=== PATIENT | male | born 1950 | race Caucasian/White ===

== ENCOUNTER 2025-01-28 08:07 | Inpatient (IN) ==
[2025-01-28 09:22] LABS: Hematocrit (blood only) 40.3 % (42.0-52.0); Hemoglobin 13.9 g/dl (14.0-18.0); Mean Corpuscular Hemoglobin 32.3 pg (25.0-34.0); Mean Corpuscular Volume 93.7 fL (80.0-100.0); Platelet Count 152 K/uL (130-400); RDW Standard Deviation 45.3 fL (36.4-46.3); Red Blood Count 4.30 M/uL (4.70-6.10); White Blood Count 10.59 K/ul (4.8-10.8)
--- NOTE | 2025-01-28 09:24 | Emergency Department Note ---
Impression & Plan Sepsis, Complicated urinary tract infection, Ureterolithiasis, Hydronephrosis ED Provider Note NAME: CARLITOS LOCKHART AGE: 74 SEX: M : 1950 ARRIVES VIA: Walk-In INFORMANT: Patient, ED PROVIDER(S): Bart Reid DO CHIEF COMPLAINT: generalized weakness HPI: This is a 74-year-old male with the PMHx of BPH, osteoarthritis, nephrolithiasis, and prior hip replacement with ongoing left hip pain presenting to [facility] for further evaluation of generalized weakness. the patient and his provide history at the bedside. He reports that he has become acutely ill over the last 24 hours. They report that he has been weak all of a sudden. They do note some congestion. He has had a mild intermittent cough. They note that he has been shaking. They noted Tmax at home of 102 F. He notes that he has had difficulty of urination and some dysuria. Patient had a Hopper catheter previously that was removed. Patient states he is still able to void but unsure if he is completely emptying his bladder. Patient does report some left-sided hip pain but otherwise no complaints. He states that this has been an ongoing issue and is no worse than usual. Denies chest pain or palpitations. No shortness of breath. They deny abdominal pain, nausea and vomiting. No recent changes in bowel movements. Patient denies recent changes in medications or OTC supplements. Patient offers no other complaints, today. ADDITIONAL HISTORY OBTAINED: Per HPI Chronic Medical/Social Conditions Affecting Care: Per HPI PAST MEDICAL HISTORY: See Below PAST SURGICAL HISTORY: See Below FAMILY HISTORY: See Below SOCIAL HISTORY: See Below HOME MEDICATIONS: See Below ALLERGIES: See Below VITALS: See Below PHYSICAL EXAMINATION: GENERAL: Sitting up in bed, alert, well appearing, well nourished, no distress, he does appear generally ill EYE EXAM: normal conjunctiva. PERRL and EOM's grossly intact. OROPHARYNX: no exudate, no erythema, lips, buccal mucosa, and tongue normal and mucous membranes are dry NECK: supple, no nuchal rigidity, no adenopathy, non-tender LUNGS: Clear to auscultation. Normal chest wall mechanics HEART: no murmurs, Tachycardic rate, regular rhythm ABDOMEN: abdomen soft, he does have some tenderness in the right upper quadrant as well as flank tenderness/CVA tenderness, normo-active bowel sounds, no masses, no rebound or guarding. BACK: Back is symmetrical on inspection and there is no deformity, no midline tenderness. SKIN: no rashes and no bruising UPPER EXTREMITIES: upper extremities are grossly normal. LOWER EXTREMITIES: No pitting edema. NEURO EXAM: Normal sensorium, cranial nerves II-XII grossly intact, normal speech, no gross weakness of arms, no gross weakness of legs. MEDICAL DECISION MAKING: Differential diagnosis includes but not limited to complicated UTI, bacteremia, sepsis, viral URI, pneumonia, dehydration, electrolyte derangements In summary, this is a 74-year-old presenting for fevers and generalized weakness. Triage and nursing notes reviewed. Patient is tachycardic but otherwise afebrile and hemodynamically stable. Diagnostics interpreted by me include EKG and cardiac monitoring as listed below: -Cardiac Monitoring: An order was placed for continuous cardiac monitoring. The monitor shows a rate of 110-120s with regular rhythm. -ECG: EKG independently interpreted by me reveals sinus tachycardia at a rate of [address] segment change to STEMI. Intervals otherwise within normal limits. History provided by the patient includes fevers at home as well as weakness that has progressed over the last 24 hours. Patient does describe rigors. Physical examination reveals that he is generally ill, tachycardic and some RUQ abdominal and CVA TTP. Given history and presentation, I suspect his source of symptoms are likely related to urinary source but given rigors, he could have GNB bacteremia. Will proceed with infectious workup and IVFR. Plan to start empiric antibiotics with IV Cefepime. Labs and imaging reviewed. Pertinent findings include elevated lactate. IV fluid resuscitation ongoing. CBC showed no leukocytosis. Does have chronic anemia. CRP is 12. Procalcitonin is 22. I am again concerned for a urinary source of infection. He will provide a urine sample. Also concern for possible gram-negative bacteremia. On reexamination, the patient has active rigors. He is now borderline febrile. Will give a dose of Toradol as well as further IV fluid resuscitation as he is still tachycardic. No history of heart failure. Patient having some right upper quadrant abdominal tenderness and possible loose CVA tenderness on the right. Will obtain CT abdomen/pelvis with IV contrast for further evaluation of intra-abdominal pathology and source of inflammation / infection. CT abdomen/pelvis independently interpreted by me reveals bilateral ureterolithiasis and left-sided hydronephrosis. There is a very distal approximately 5 mm stone. Ureter appears infected. Evidence of cystitis with bladder thickening. There is a proximal stone on the right but do not believe this is the source. Plan to discuss with urology. I discussed with the urologist on-call. Patient will likely need operative intervention. They will take to patient to the OR this afternoon. Patient will be admitted to the medicine team. Patient was discussed by telephone with [facility] hospitalist team and admitted. Patient will need to have IV antibiotics and continued IV fluid resuscitation as he remains tachycardic. Patient likely has sepsis secondary to complicated UTI which is further complicated by bilateral utero lithiasis. Consults/Care Managements Discussions: Per MDM ER treatment provided: See above Procedures:none Critical Care: None Past Med/Surg History Problem List (Updated 01/28/25 @ 17:25 by aBrt Reid DO) Hydronephrosis (Acute) Ureterolithiasis (Acute) Complicated urinary tract infection (Acute) Sepsis (Acute) Complicated UTI (urinary tract infection) Type 2 diabetes mellitus Hydroureteronephrosis Bilateral ureteral calculi Sepsis Encounter for pre-operative examination Complication, blocked Hopper catheter (Acute) Tinnitus of right ear Erectile dysfunction BPH (benign prostatic hyperplasia) Arthritis Kidney stones Epididymal cyst Medical History Hydrocele Glaucoma Sensorineural hearing loss (SNHL) of both ears Imbalance Ureteral calculi Hydronephrosis Closed hip fracture Diabetes mellitus Hx of bronchitis Surgical History History of right hip replacement History of back surgery Hx of appendectomy Family History Brother Prostate cancer both brothers Diabetes Heart disease Kidney stones Mother Breast cancer Family history of cervical cancer Father Diabetes Social History Smoking Status: Former smoker Tobacco Type: Cigars Hx Alcohol Use: Yes Alcohol type: beer Hx Substance Use: No Preferred Language: Guyanese Communication Ability: Effective 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 sulfamethoxazole Allergy Unknown PER PT Verified 01/13/25 00:20 [From Bactrim] "QUIT WORKING FOR UTI'S". trimethoprim [From Bactrim] Allergy Unknown PER PT Verified 01/13/25 00:20 "QUIT WORKING FOR UTI'S". Home Meds Home Medications Medication Instructions Recorded Confirmed blood sugar diagnostic 08/23/21 11/07/24 lancets 08/23/21 11/07/24 lisinopril 2.5 mg tablet 2.5 mg PO QPM 08/23/21 01/13/25 mecobalamin (vitamin B12) 1,000 1,000 mcg PO DAILY 08/23/21 01/13/25 mcg chewable tablet pravastatin 20 mg tablet 20 mg PO HS 08/23/21 01/13/25 vitamin E (dl, acetate) 450 mg 450 mg PO DAILY 11/08/23 01/13/25 (1,000 unit) capsule aspirin 81 mg chewable tablet 81 mg PO Q OTHER DAY 11/07/24 01/13/25 (Aspirin Childrens) calcium 500 mg (as 1 tab PO DAILY 11/07/24 01/13/25 carbonate)-vitamin D3 10 mcg (400 unit) tablet (Calcium 500 + D) diphenhydramine 25 2 tab PO HS 11/07/24 01/13/25 mg-acetaminophen 500 mg tablet (Tylenol PM Extra Strength) finasteride 5 mg tablet 5 mg PO QPM 11/07/24 01/13/25 mesalamine 1.2 gram tablet,delayed 2.4 g PO BID 11/07/24 01/13/25 release metformin 500 mg tablet,extended 1,000 mg PO BID 11/07/24 01/13/25 release 24 hr semaglutide 0.25 mg or 0.5 mg (2 0.5 mg subcut WK 11/07/24 01/13/25 mg/3 mL) subcutaneous pen injector (Ozempic) ibuprofen 200 mg tablet 200 mg PO .Q4-6H PRN Pain 01/13/25 01/13/25 inulin 2 gram chewable tablet 4 g PO QAM 01/13/25 01/13/25 Previous Rx's Medication Instructions Recorded oxycodone 5 mg tablet 5 - 10 mg (1 - 2 x 5 mg) PO Q4H 11/14/24 PRN pain #14 tabs sildenafil 100 mg tablet 100 mg PO DAILY PRN sexual 11/14/24 activity #30 tabs Results & Data (ED) Vital Signs Vital Signs - 24 hr 01/28/25 08:17 01/28/25 08:47 01/28/25 09:16 Temperature 37.7 C H Temperature Source Oral Pulse Rate 120 H 113 H Pulse Rate [Apical] Pulse Rate from SpO2 Sensor Respiratory Rate 18 Respiratory Effort / Characteristics Non-Labored Spontaneous Respiratory Depth Normal Blood Pressure 127/76 Blood Pressure [Left Arm] Blood Pressure Mean 93 Blood Pressure Mean [Left Arm] Blood Pressure Position Sitting Blood Pressure Position [Left Arm] Pulse Oximetry 94 95 Oxygen Delivery Method Room Air Room Air Sepsis Recent Fever Within 48 Hours Yes Sepsis New/Unexplained Change in Mental Status No Sepsis Action Taken by Nursing No Action Required 01/28/25 09:16 01/28/25 09:40 01/28/25 11:00 Temperature 37.9 C H Temperature Source Oral Pulse Rate Pulse Rate [Apical] 108 H 110 H 115 H Pulse Rate from SpO2 Sensor Respiratory Rate 17 19 19 Respiratory Effort / Characteristics Non-Labored Spontaneous Non-Labored Spontaneous Non-Labored Spontaneous Respiratory Depth Normal Normal Normal Blood Pressure Blood Pressure [Left Arm] 118/86 134/81 148/88 H Blood Pressure Mean Blood Pressure Mean [Left Arm] 96 98 108 Blood Pressure Position Blood Pressure Position [Left Arm] Semi-fowlers Semi-fowlers Semi-fowlers Pulse Oximetry 95 95 95 Oxygen Delivery Method Room Air Room Air Room Air Sepsis Recent Fever Within 48 Hours Sepsis New/Unexplained Change in Mental Status Sepsis Action Taken by Nursing 01/28/25 12:00 01/28/25 12:03 01/28/25 12:27 Temperature Temperature Source Pulse Rate 122 H 123 H Pulse Rate [Apical] Pulse Rate from SpO2 Sensor 123 H Respiratory Rate 19 23 Respiratory Effort / Characteristics Respiratory Depth Blood Pressure 132/76 Blood Pressure [Left Arm] Blood Pressure Mean 92 Blood Pressure Mean [Left Arm] Blood Pressure Position Blood Pressure Position [Left Arm] Pulse Oximetry 95 Oxygen Delivery Method Sepsis Recent Fever Within 48 Hours Sepsis New/Unexplained Change in Mental Status Sepsis Action Taken by Nursing 01/28/25 12:30 Temperature Temperature Source Pulse Rate Pulse Rate [Apical] Pulse Rate from SpO2 Sensor Respiratory Rate Respiratory Effort / Characteristics Respiratory Depth Blood Pressure 145/83 H Blood Pressure [Left Arm] Blood Pressure Mean 94 Blood Pressure Mean [Left Arm] Blood Pressure Position Blood Pressure Position [Left Arm] Pulse Oximetry Oxygen Delivery Method Sepsis Recent Fever Within 48 Hours Sepsis New/Unexplained Change in Mental Status Sepsis Action Taken by Nursing Laboratory Data 01/28/25 09:05 01/28/25 09:05 Lab Results 01/28/25 01/28/25 01/28/25 Range/Units 09:05 09:28 12:04 WBC 10.59 (4.8-10.8) K/ul RBC 4.30 L (4.70-6.10) M/uL Hgb 13.9 L (14.0-18.0) g/dl Hct 40.3 L (42.0-52.0) % MCV 93.7 (80.0-100.0) fL MCH 32.3 (25.0-34.0) pg MCHC 34.5 (32.0-36.0) g/dL RDW Std Deviation 45.3 (36.4-46.3) fL RDW Coeff of Jyoit 13.3 (11.5-14.5) % Plt Count 152 (130-400) K/uL MPV 10.1 (9.4-12.4) fL Immature Gran % (Auto) 0.6 % Neut % (Auto) 90.2 % Lymph % (Auto) 2.9 % [place] % (Auto) 5.9 % Eos % (Auto) 0.0 % Baso % (Auto) 0.4 % Neut # (Auto) 9.56 H (1.40-6.50) K/uL Lymph # (Auto) 0.31 L (1.20-3.40) K/uL [place] # (Auto) 0.62 H (0.11-0.59) K/uL Eos # (Auto) 0.00 (0.00-0.50) K/uL Baso # (Auto) 0.04 (0.00-0.20) K/uL Immature Gran # (Auto) 0.06 (0.01-0.20) K/uL Polychromasia 1+ Sodium 136 (136-145) mmol/L Potassium 4.1 (3.5-5.1) mmol/L Chloride 104 (98-107) mmol/L Carbon Dioxide 22 (21-32) mmol/L Anion Gap 10 (3-11) BUN 20 (6-23) mg/dl Creatinine 0.95 (0.6-1.4) mg/dl Est Cr Clr Drug Dosing 85.9 ml/min eGFR 83.47 BUN/Creatinine Ratio 21.1 H (10-20) Glucose 161 H (70-99(Fasting)) mg/dl Lactate 2.7 H* 1.9 (0.4-2.0) mmol/L Calcium 9.1 (8.6-10.3) mg/dl Total Bilirubin 0.7 (0.2-1.0) mg/dl AST 15 (13-39) U/L ALT 16 (7-52) U/L Alkaline Phosphatase 87 (34-104) U/L Troponin I High Sens 6.3 (0-20) pg/ml C-Reactive Protein 12.48 H (0-0.5) mg/dl Total Protein 7.0 (6.0-8.3) gm/dl Albumin 4.1 (3.4-5.0) gm/dl Globulin 2.9 (2.5-4.0) gm/dl Albumin/Globulin Ratio 1.4 (0.9-2) Procalcitonin 22.40 H (0-0.5) ng/ml Adenovirus (PCR) Not Detected (NotDetected) B. pertussis DNA (PCR) Not Detected (NotDetected) B.parapertussis DNA PCR Not Detected (NotDetected) C. pneumoniae DNA (PCR) Not Detected (NotDetected) Coronavirus OC43 (PCR) Not Detected (NotDetected) Coronavirus HKU1 (PCR) Not Detected (NotDetected) Coronavirus 229E (PCR) Not Detected (NotDetected) SARS-CoV-2 (PCR) Not Detected (NotDetected) Coronavirus NL63 (PCR) Not Detected (NotDetected) Human Metapneumovir PCR Not Detected (NotDetected) Influenza Type A (PCR) Not Detected (NotDetected) Influenza Type B (PCR) Not Detected (NotDetected) M. pneumoniae (PCR) Not Detected (NotDetected) Parainfluenza 1 (PCR) Not Detected (NotDetected) Parainfluenza 2 (PCR) Not Detected (NotDetected) Parainfluenza 3 (PCR) Not Detected (NotDetected) Parainfluenza 4 (PCR) Not Detected (NotDetected) RSV (PCR) Not Detected (NotDetected) Entero/Rhino (PCR) Not Detected (NotDetected) Administered Medications Lactated Ringer's (Lr) 1,000 mls @ 15 mls/hr IV .Q24H NELIDA Stop: 01/31/25 13:44 Last Admin: 01/28/25 13:40 Dose: 15 mls/hr Documented By: DONAVON Discontinued Medications Cefepime HCl (Maxipime 2000mg) 2,000 mg in 20 mls @ 5 mls/min IV NOW STA; Protocol Stop: 01/28/25 08:35 Last Admin: 01/28/25 09:26 Dose: 5 mls/min Documented By: STAN Parenteral Electrolytes (Plasma-Lyte A Ph 7.4) 1,000 mls @ 999 mls/hr IV .Q1H1M ONE Stop: 01/28/25 09:48 Last Infusion: 01/28/25 10:42 Dose: Infused Documented By: Admin: 01/28/25 09:26 Dose: 999 mls/hr Documented By: STAN Parenteral Electrolytes (Plasma-Lyte A Ph 7.4) 1,000 mls @ 999 mls/hr IV .Q1H1M ONE Stop: 01/28/25 11:42 Last Infusion: 01/28/25 12:33 Dose: Infused Documented By: Admin: 01/28/25 10:51 Dose: 999 mls/hr Documented By: STAN Ioversol (Optiray 320 100ml) 88 ml IV ONCE ONE Stop: 01/28/25 11:21 Last Admin: 01/28/25 11:20 Dose: 88 ml Documented By: JAYSON Ketorolac Tromethamine (Ketorolac Tromethamine 15 Mg/Ml Vial) 15 mg IV NOW STA Stop: 01/28/25 10:43 Last Admin: 01/28/25 10:50 Dose: 15 mg Documented By: STAN Imaging Data Radiologist's Impression: Chest X-Ray 01/28/25 08:32 XR chest 1V portable CLINICAL HISTORY: Fever. COMPARISON STUDY: No previous studies for comparison. FINDINGS: Lung volumes are normal. There is no pneumothorax or pleural effusion. The heart is mildly enlarged. There is subtle interstitial prominence. No consolidation is identified. IMPRESSION: 1. Mild cardiomegaly. Subtle interstitial thickening. This may represent pulmonary vascular congestion. Although less likely, an infectious process could appear similar. 2. No consolidation identified. ACT 112: Negative or not required by law. Electronically signed by: Minor Whitmore M.D. 01/28/2025 9:50 AM Abdomen/Pelvis CT 01/28/25 10:42 CT SCAN OF THE ABDOMEN AND PELVIS WITH IV CONTRAST CLINICAL HISTORY: Right flank pain. COMPARISON STUDY: Right upper quadrant ultrasound October 02, 2024. TECHNIQUE: Following the IV administration of 88 cc of Optiray 320, CT scan of the abdomen and pelvis is performed from the lung bases to the proximal femora. Images are reviewed in the axial, sagittal, and coronal planes. IV contrast was administered without complication. A dose lowering technique was utilized adhering to the principles of ALARA. CT DOSE: 1654.44 mGy.cm FINDINGS: Visualized lung bases are unremarkable. No pneumatosis, free air or portal venous gas is present. There is hepatic steatosis. There are several gallstones within the gallbladder. There is no convincing CT evidence for acute cholecystitis. Spleen, adrenal glands and pancreas are unremarkable. Two distal left ureteral calculi measure up to 5 mm. There is a 3 mm lower pole renal calculus. The left nephrogram is delayed with mild left perinephric stranding. Multiple radiodensities within the right collecting system are present. There is also elongated radiodensity within the right ureteropelvic junction without hydronephrosis. There is no evidence for a bowel obstruction. There is colonic diverticulosis. There is subtle stranding adjacent to a sigmoid colon diverticulum. No free air or abscess is present. Bladder wall thickening with adjacent stranding is present. IMPRESSION: 1. Two distal left ureteral calculi which result in mild left hydroureteronephrosis with delayed nephrogram. 2. Right pelvicalyceal radiodensities which likely represent excreted contrast. 3. Bladder wall thickening with adjacent stranding which could be correlated with urinalysis. 4. Mild acute sigmoid diverticulitis. No free air or abscess. 5. Cholelithiasis. ACT 112: Negative or not required by law. Electronically signed by: Minor Whitmore M.D. 01/28/2025 11:56 AM Discharge Plan Visit Data Chief Complaint: Weakness Stated Complaint: WEAK,FEVER,RECOVERING FROM FEMUR FRACTURE ED Provider: Bart Reid Discharge Problem: Sepsis, Complicated urinary tract infection, Ureterolithiasis, Hydronephrosis Patient Disposition: Admitted As Inpatient Condition: Serious Discharge Instructions Interventions: ED Discharge Assessment Last Done: 01/28/25 13:12 Discharge Problem: Sepsis Qualifiers: Sepsis type: sepsis due to unspecified organism Sepsis acute organ dysfunction status: without acute organ dysfunction Qualified Code(s): A41.9 - Sepsis, unspecified organism Hydronephrosis Qualifiers: Hydronephrosis type: with ureteropelvic junction obstruction Qualified Code(s): Q62.11 - Congenital occlusion of ureteropelvic junction
[2025-01-28] MEDS: PLASMA-LYTE A 1,000 ML IV ONE ×2 (09:26→10:51)
[2025-01-28] MEDS: CEFEPIME 2000MG 2,000 MG/20 ML SYR IV STA (09:26)
--- NOTE | 2025-01-28 09:51 | XRay Report ---
XR chest 1V portable CLINICAL HISTORY: Fever. COMPARISON STUDY: No previous studies for comparison. FINDINGS: Lung volumes are normal. There is no pneumothorax or pleural effusion. The heart is mildly enlarged. There is subtle interstitial prominence. No consolidation is identified. IMPRESSION: 1. Mild cardiomegaly. Subtle interstitial thickening. This may represent pulmonary vascular congestio n. Although less likely, an infectious process could appear similar. 2. No consolidation identified. ACT 112: Negative or not required by law. Electronically signed by: Minor Whitmore M.D. 01/28/2025 9:50 AM
[2025-01-28 09:53] LABS: Anion Gap 10.0 (3-11); Bilirubin,Total 0.7 mg/dl (0.2-1.0); Calcium 9.1 mg/dl (8.6-10.3); Carbon Dioxide 22.0 mmol/L (21-32); Chloride 104.0 mmol/L (98-107); Potassium 4.1 mmol/L (3.5-5.1); Sodium 136.0 mmol/L (136-145)
[2025-01-28 09:59] LABS: Alanine Aminotransferase 16.0 U/L (7-52); Albumin Globulin Ratio 1.4 (0.9-2); Alkaline Phosphatase 87.0 U/L (34-104); Blood Urea Nitrogen 20.0 mg/dl (6-23); Creatinine Clr Calc Pharmacy 85.9 ml/min; Globulin 2.9 gm/dl (2.5-4.0); Glucose 161.0 mg/dl (70-99(Fasting)); Total Protein 7.0 gm/dl (6.0-8.3)
[2025-01-28 10:07] LABS: Immature Granulocytes # (auto) 0.06 K/uL (0.01-0.20); Immature Granulocytes % (auto) 0.6 %; Polychromasia 1+
[2025-01-28 10:34] LABS: Chlamydia pneumoniae PCR Not Detected (NotDetected); Coronavirus 229E PCR Not Detected (NotDetected); Coronavirus CoV-2 (COVID19)PCR Not Detected (NotDetected); Coronavirus HKU1 PCR Not Detected (NotDetected); Coronavirus NL63 PCR Not Detected (NotDetected); Coronavirus OC43PCR Not Detected (NotDetected); Human Metapneumovirus PCR Not Detected (NotDetected); Parainfluenza Virus 1 PCR Not Detected (NotDetected); Parainfluenza Virus 2 PCR Not Detected (NotDetected); Parainfluenza Virus 3 PCR Not Detected (NotDetected); Parainfluenza Virus 4 PCR Not Detected (NotDetected); Respiratory Syncytial VirusPCR Not Detected (NotDetected); Rhinovirus/Enterovirus PCR Not Detected (NotDetected)
[2025-01-28] MEDS: KETOROLAC TROMETHAMINE 15 MG/ML VIAL IV STA (10:50)
[2025-01-28] MEDS: OPTIRAY 320 100ml IV ONE (11:20)
--- NOTE | 2025-01-28 11:59 | CT Scan Report ---
CT SCAN OF THE ABDOMEN AND PELVIS WITH IV CONTRAST CLINICAL HISTORY: Right flank pain. COMPARISON STUDY: Right upper quadrant ultrasound October 02, 2024. TECHNIQUE: Following the IV administration of 88 cc of Optiray 320, CT scan of the abdomen and pelvi s is performed from the lung bases to the proximal femora. Images are reviewed in the axial, sagittal , and coronal planes. IV contrast was administered without complication. A dose lowering technique wa s utilized adhering to the principles of ALARA. CT DOSE: 1654.44 mGy.cm FINDINGS: Visualized lung bases are unremarkable. No pneumatosis, free air or portal venous gas is pr esent. There is hepatic steatosis. There are several gallstones within the gallbladder. There is no c onvincing CT evidence for acute cholecystitis. Spleen, adrenal glands and pancreas are unremarkable. Two distal left ureteral calculi measure up to 5 mm. There is a 3 mm lower pole renal calculus. The l eft nephrogram is delayed with mild left perinephric stranding. Multiple radiodensities within the ri ght collecting system are present. There is also elongated radiodensity within the right ureteropelvi c junction without hydronephrosis. There is no evidence for a bowel obstruction. There is colonic div erticulosis. There is subtle stranding adjacent to a sigmoid colon diverticulum. No free air or absce ss is present. Bladder wall thickening with adjacent stranding is present. IMPRESSION: 1. Two distal left ureteral calculi which result in mild left hydroureteronephrosis with delayed neph rogram. 2. Right pelvicalyceal radiodensities which likely represent excreted contrast. 3. Bladder wall thickening with adjacent stranding which could be correlated with urinalysis. 4. Mild acute sigmoid diverticulitis. No free air or abscess. 5. Cholelithiasis. ACT 112: Negative or not required by law. Electronically signed by: Minor Whitmore M.D. 01/28/2025 11:56 AM
--- NOTE | 2025-01-28 13:10 | Urology Consultation ---
Date of Consultation January 28, 2025 Assessment & Plan (1) Ureteral calculi: (2) Hydronephrosis: (3) Acute UTI: Plan 74yo male who presented to the ED today with reports of weakness, rigors, and fever at home. CT imaging on arrival demonstrated 2 obstructing distal left ureteral stones and a nonobstructing right UPJ calculus. We reviewed his CT imaging, specifically the obstructing distal left ureteral stones and concern for a right UPJ stone. Discussed that with the finding of bilateral ureteral stones and concern for infection, we would recommend proceeding to the OR for cystoscopy and bilateral ureteral stent placement - he is agreeable. Will proceed to OR today for cystoscopy, bilateral retrograde pyelogram, bilateral ureteral stent placement. Risks/benefits to be reviewed with patient by Dr. Baptiste. Keep NPO. He received IV Cefepime in the ED. Urology will follow. Supervising Physician Co-Signing Physician Notes agree with above. acutely ill gentleman. Plan for emergent cystoscopy and bilateral stent placement. History of Present Illness History of Present Illness 74-year-old male who presented to [facility] ED today for further evaluation of generalized weakness. The patient and his provide history at the bedside. They report he is recently recovering from a right hip fracture. He attended physical therapy yesterday and after returning home began to experience ill feelings. Reports sudden onset of weakness, chills, shakes and Tmax at home of 102 F. They also report some difficulty with urination and dysuria. He denies abdominal or flank pain but reports recent episodes of left-sided hip pain. Of note, he also had a recent episode of urinary retention requiring Hopper catheter placement and UTI. The Hopper catheter was removed in the urology clinic on 01/22/2025. The patient has a history of nephrolithiasis, follows with Dr. Cruz. On arrival to the ED, he is tachycardic but otherwise afebrile and hemodynamically stable. Labs shows no leukocytosis, normal renal function, lactate 2.7. Urinalysis and culture to be collected. Blood cultures pending. CT abdomen pelvis revealed 2 obstructing distal left ureteral stones, multiple radiodensities within the right collecting system, and an elongated radiodensity within the right ureteropelvic junction without hydronephrosis. He received a dose of cefepime in the ED. He is being admitted to medicine service. CT abdomen pelvis- 1. Two distal left ureteral calculi which result in mild left hydroureteronephrosis with delayed nephrogram. 2. Right pelvicalyceal radiodensities which likely represent excreted contrast. 3. Bladder wall thickening with adjacent stranding which could be correlated with urinalysis. 4. Mild acute sigmoid diverticulitis. No free air or abscess. 5. Cholelithiasis. Allergies Allergy/AdvReac Type Severity Reaction Status Date / Time ciprofloxacin [Cipro] Allergy Unknown PER PT Verified 01/13/25 00:20 "QUIT WORKING FOR UTI'S". sulfamethoxazole Allergy Unknown PER PT Verified 01/13/25 00:20 [From Bactrim] "QUIT WORKING FOR UTI'S". trimethoprim [From Bactrim] Allergy Unknown PER PT Verified 01/13/25 00:20 "QUIT WORKING FOR UTI'S". Home Medications Medication Instructions Recorded Confirmed Type blood sugar diagnostic 08/23/21 11/07/24 History lancets 08/23/21 11/07/24 History lisinopril 2.5 mg tablet 2.5 mg PO QPM 08/23/21 01/13/25 History mecobalamin (vitamin B12) 1,000 1,000 mcg PO DAILY 08/23/21 01/13/25 History mcg chewable tablet pravastatin 20 mg tablet 20 mg PO HS 08/23/21 01/13/25 History vitamin E (dl, acetate) 450 mg 450 mg PO DAILY 11/08/23 01/13/25 History (1,000 unit) capsule aspirin 81 mg chewable tablet 81 mg PO Q OTHER DAY 11/07/24 01/13/25 History (Aspirin Childrens) calcium 500 mg (as 1 tab PO DAILY 11/07/24 01/13/25 History carbonate)-vitamin D3 10 mcg (400 unit) tablet (Calcium 500 + D) diphenhydramine 25 2 tab PO HS 11/07/24 01/13/25 History mg-acetaminophen 500 mg tablet (Tylenol PM Extra Strength) finasteride 5 mg tablet 5 mg PO QPM 11/07/24 01/13/25 History mesalamine 1.2 gram tablet,delayed 2.4 g PO BID 11/07/24 01/13/25 History release metformin 500 mg tablet,extended 1,000 mg PO BID 11/07/24 01/13/25 History release 24 hr semaglutide 0.25 mg or 0.5 mg (2 0.5 mg subcut WK 11/07/24 01/13/25 History mg/3 mL) subcutaneous pen injector (Ozempic) oxycodone 5 mg tablet 5 - 10 mg (1 - 2 x 5 mg) PO Q4H 11/14/24 01/13/25 Rx PRN pain #14 tabs sildenafil 100 mg tablet 100 mg PO DAILY PRN sexual 11/14/24 01/13/25 Rx activity #30 tabs ibuprofen 200 mg tablet 200 mg PO .Q4-6H PRN Pain 01/13/25 01/13/25 History inulin 2 gram chewable tablet 4 g PO QAM 01/13/25 01/13/25 History Patient History Medical History (Updated 01/28/25 @ 13:29 by Siddhartha Haynes MD) Hydrocele Glaucoma Sensorineural hearing loss (SNHL) of both ears Imbalance Ureteral calculi Hydronephrosis Closed hip fracture Diabetes mellitus Hx of bronchitis Surgical History History of right hip replacement History of back surgery Hx of appendectomy Family History Brother Prostate cancer both brothers Diabetes Heart disease Kidney stones Mother Breast cancer Family history of cervical cancer Father Diabetes Social History Smoking Status: Former smoker Tobacco Type: Cigars Hx Alcohol Use: Yes Alcohol type: beer Hx Substance Use: No Preferred Language: Croatian Communication Ability: Effective Inspector Salvage Required: No Beliefs That Will Affect Care: None marital status: Current Living Situation: Spouse current occupational status: retired Feels Safe at Home: Yes Assistive Devices: Cane and Walker Review of Systems Review of Systems: All systems reviewed & are unremarkable except as noted in HPI & below Physical Exam Constitutional: no acute distress Respiratory: no respiratory distress and no labored breathing Skin: Warm and dry Neurologic: awake Psychiatric: Orientation: alert, oriented x 3 and cooperative Results & Data Vital Signs (Past 12 Hours) Vital Signs Temp Pulse Pulse Resp BP BP Pulse Ox 01/28/25 12:30 145/83 H 01/28/25 12:27 123 H 23 95 01/28/25 12:03 122 H 19 01/28/25 12:00 132/76 01/28/25 11:00 115 H 19 148/88 H 95 01/28/25 09:40 37.9 C H 110 H 19 134/81 95 01/28/25 09:16 108 H 17 118/86 95 01/28/25 09:16 95 01/28/25 08:47 113 H 01/28/25 08:17 37.7 C H 120 H 18 127/76 94 O2 Del Method 01/28/25 12:30 01/28/25 12:27 01/28/25 12:03 01/28/25 12:00 01/28/25 11:00 Room Air 01/28/25 09:40 Room Air 01/28/25 09:16 Room Air 01/28/25 09:16 Room Air 01/28/25 08:47 01/28/25 08:17 Room Air PG Care Time/CCT Total # of Minutes Spent Total Time Spent with Patient: Total time spent is greater than 50% in coordination of care (as documented) at patient's floor/unit and/or counseling patient: Coding Level of Care Code 33376 INT INP/OBS CARE 2/55MIN Diagnoses Ureteral calculi N20.1 Hydronephrosis N13.30 Acute UTI N39.0
--- NOTE | 2025-01-28 13:22 | Anesthesiology Consultation ---
Date of Service January 28, 2025 Assessment & Plan (1) Encounter for pre-operative examination: Chart Review Chart Review: Acceptable Risk for Surgery (urgent) History Surgery Operation Date: 01/28/25 12:50 Proposed Procedures p Cystoscopy, Bilateral Retrograde Pyelogram, Bilateral Stent Placement - Arley Baptiste MD Height/Weight Height: 5 ft 11 in Weight: 113.1 kg Allergies Allergy/AdvReac Type Severity Reaction Status Date / Time ciprofloxacin [Cipro] Allergy Unknown PER PT Verified 01/13/25 00:20 "QUIT WORKING FOR UTI'S". sulfamethoxazole Allergy Unknown PER PT Verified 01/13/25 00:20 [From Bactrim] "QUIT WORKING FOR UTI'S". trimethoprim [From Bactrim] Allergy Unknown PER PT Verified 01/13/25 00:20 "QUIT WORKING FOR UTI'S". Medications Home Medications Medication Instructions Recorded Confirmed Last Taken blood sugar diagnostic 08/23/21 11/07/24 Unknown lancets 08/23/21 11/07/24 Unknown lisinopril 2.5 mg tablet 2.5 mg PO QPM 08/23/21 01/13/25 01/12/25 mecobalamin (vitamin B12) 1,000 1,000 mcg PO DAILY 08/23/21 01/13/25 01/12/25 mcg chewable tablet pravastatin 20 mg tablet 20 mg PO HS 08/23/21 01/13/25 01/12/25 vitamin E (dl, acetate) 450 mg 450 mg PO DAILY 11/08/23 01/13/25 01/12/25 (1,000 unit) capsule aspirin 81 mg chewable tablet 81 mg PO Q OTHER DAY 11/07/24 01/13/25 01/12/25 (Aspirin Childrens) calcium 500 mg (as 1 tab PO DAILY 11/07/24 01/13/25 01/12/25 carbonate)-vitamin D3 10 mcg (400 unit) tablet (Calcium 500 + D) diphenhydramine 25 2 tab PO HS 11/07/24 01/13/25 01/12/25 mg-acetaminophen 500 mg tablet (Tylenol PM Extra Strength) finasteride 5 mg tablet 5 mg PO QPM 11/07/24 01/13/25 01/12/25 mesalamine 1.2 gram tablet,delayed 2.4 g PO BID 11/07/24 01/13/25 01/12/25 release metformin 500 mg tablet,extended 1,000 mg PO BID 11/07/24 01/13/25 01/12/25 release 24 hr semaglutide 0.25 mg or 0.5 mg (2 0.5 mg subcut WK 11/07/24 01/13/25 01/12/25 mg/3 mL) subcutaneous pen injector (Ozempic) oxycodone 5 mg tablet 5 - 10 mg (1 - 2 x 5 mg) PO Q4H 11/14/24 01/13/25 Unknown PRN pain #14 tabs sildenafil 100 mg tablet 100 mg PO DAILY PRN sexual 11/14/24 01/13/25 Unknown activity #30 tabs ibuprofen 200 mg tablet 200 mg PO .Q4-6H PRN Pain 01/13/25 01/13/25 Unknown inulin 2 gram chewable tablet 4 g PO QAM 01/13/25 01/13/25 01/12/25 Past Medical History Medical History (Updated 01/28/25 @ 13:23 by Lew Chavez MD) Hydrocele Glaucoma Sensorineural hearing loss (SNHL) of both ears Imbalance Ureteral calculi Hydronephrosis Closed hip fracture Diabetes mellitus Hx of bronchitis Past Family History Family History Brother Prostate cancer both brothers Diabetes Heart disease Kidney stones Mother Breast cancer Family history of cervical cancer Father Diabetes Past Surgical History Surgical History History of right hip replacement History of back surgery Hx of appendectomy Social History Smoking Status: Former smoker Hx Alcohol Use: Yes Alcohol type: beer alcohol intake frequency: a few times a month Hx Substance Use: No Physical Exam Vital Signs Last Vital Signs Temp 37.3 C 01/28/25 12:54 Pulse 123 H 01/28/25 12:54 Resp 20 01/28/25 12:54 BP 143/86 H 01/28/25 12:54 Pulse Ox 92 01/28/25 12:54 O2 Del Method Room Air 01/28/25 12:54 Testing Laboratory Results 01/28/25 09:05 01/28/25 09:05 Electrocardiogram Date: 01/28/25 Findings: + ST @ (114) Chest X-Ray Date: 01/28/25 Findings: + cardiomegaly (mild) and + pulmonary vascular congestion (possible)
--- NOTE | 2025-01-28 13:31 | History & Physical Report ---
Date of Service January 28, 2025 Assessment & Plan (1) Sepsis: Plan: Present on admission. Due to urinary tract infection. Await final urine culture and blood culture results. He may have bacteremia based on his presentation and clinical appearance (2) Bilateral ureteral calculi: Plan: Urology consultation appreciated. Cystoscopy scheduled for later today with bilateral ureteral stent placement (3) Hydroureteronephrosis: Plan: Left sided seen on CT scan done on admission due to left ureteral calculus obstruction (4) Complicated UTI (urinary tract infection): Plan: Await final culture results. Continue intravenous cefepime started in the ED. (5) Type 2 diabetes mellitus: Plan: ADA diet when taking p.o. Sliding scale coverage for now. Metformin and other home medications are on hold Plan Anticipate eventual discharge back to home within the next 2 to 3 days if blood cultures are negative Admission and Anticipated Discharge Date Admission Date: January 28, 2025 History of Present Illness Chief Complaint: Generalized weakness, fevers with rigors, dysuria Primary Care Provider: Kim Olivera MD 74-year-old white male who developed weakness, fevers, rigors, and dysuria today. He came to the ED for evaluation. He was found to have evidence of a UTI and bilateral ureteral calculi. He has been seen in consultation by urology and will be undergoing cystoscopy with bilateral ureteral stent placement later today, January 28. He has some nausea but denies vomiting, melena, hematochezia. He received cefepime in the ED. He is allergic to sulfa and ciprofloxacin Allergies Allergy/AdvReac Type Severity Reaction Status Date / Time ciprofloxacin [Cipro] Allergy Unknown PER PT Verified 01/13/25 00:20 "QUIT WORKING FOR UTI'S". sulfamethoxazole Allergy Unknown PER PT Verified 01/13/25 00:20 [From Bactrim] "QUIT WORKING FOR UTI'S". trimethoprim [From Bactrim] Allergy Unknown PER PT Verified 01/13/25 00:20 "QUIT WORKING FOR UTI'S". Home Medications Medication Instructions Recorded Confirmed Type blood sugar diagnostic 08/23/21 11/07/24 History lancets 08/23/21 11/07/24 History lisinopril 2.5 mg tablet 2.5 mg PO QPM 08/23/21 01/13/25 History mecobalamin (vitamin B12) 1,000 1,000 mcg PO DAILY 08/23/21 01/13/25 History mcg chewable tablet pravastatin 20 mg tablet 20 mg PO HS 08/23/21 01/13/25 History vitamin E (dl, acetate) 450 mg 450 mg PO DAILY 11/08/23 01/13/25 History (1,000 unit) capsule aspirin 81 mg chewable tablet 81 mg PO Q OTHER DAY 11/07/24 01/13/25 History (Aspirin Childrens) calcium 500 mg (as 1 tab PO DAILY 11/07/24 01/13/25 History carbonate)-vitamin D3 10 mcg (400 unit) tablet (Calcium 500 + D) diphenhydramine 25 2 tab PO HS 11/07/24 01/13/25 History mg-acetaminophen 500 mg tablet (Tylenol PM Extra Strength) finasteride 5 mg tablet 5 mg PO QPM 11/07/24 01/13/25 History mesalamine 1.2 gram tablet,delayed 2.4 g PO BID 11/07/24 01/13/25 History release metformin 500 mg tablet,extended 1,000 mg PO BID 11/07/24 01/13/25 History release 24 hr semaglutide 0.25 mg or 0.5 mg (2 0.5 mg subcut WK 11/07/24 01/13/25 History mg/3 mL) subcutaneous pen injector (Ozempic) oxycodone 5 mg tablet 5 - 10 mg (1 - 2 x 5 mg) PO Q4H 11/14/24 01/13/25 Rx PRN pain #14 tabs sildenafil 100 mg tablet 100 mg PO DAILY PRN sexual 11/14/24 01/13/25 Rx activity #30 tabs ibuprofen 200 mg tablet 200 mg PO .Q4-6H PRN Pain 01/13/25 01/13/25 History inulin 2 gram chewable tablet 4 g PO QAM 01/13/25 01/13/25 History Past Med/Surg History Problem List (Updated 01/28/25 @ 13:29 by Siddhartha Haynes MD) Complicated UTI (urinary tract infection) Type 2 diabetes mellitus Hydroureteronephrosis Bilateral ureteral calculi Sepsis Encounter for pre-operative examination Complication, blocked Hopper catheter (Acute) Tinnitus of right ear Erectile dysfunction BPH (benign prostatic hyperplasia) Arthritis Kidney stones Epididymal cyst Medical History (Updated 01/28/25 @ 13:29 by Siddhartha Haynes MD) Hydrocele Glaucoma Sensorineural hearing loss (SNHL) of both ears Imbalance Ureteral calculi Hydronephrosis Closed hip fracture Diabetes mellitus Hx of bronchitis Surgical History History of right hip replacement History of back surgery Hx of appendectomy Family History Brother Prostate cancer both brothers Diabetes Heart disease Kidney stones Mother Breast cancer Family history of cervical cancer Father Diabetes Social History Smoking Status: Former smoker Tobacco Type: Cigars Hx Alcohol Use: Yes Alcohol type: beer Hx Substance Use: No Preferred Language: Bulgarian Communication Ability: Effective Taxicab Coordinator Required: No Beliefs That Will Affect Care: None marital status: Current Living Situation: Spouse current occupational status: retired Feels Safe at Home: Yes Assistive Devices: Cane and Walker Review of Systems 2 Review of Systems: Constitutionalfevers and rigors ENTno blurred vision, no double vision, no epistaxis, no sore throat Respiratoryno cough, no wheezing, no shortness of breath Cardiacno palpitations, no chest pain, no syncope Anna nausea, vomiting, diarrhea, melena, hematochezia GUdysuria. No gross hematuria. Musculoskeletalno joint pain, no muscle tenderness Skinno bruising, no rashes, no pruritus Neurono isolated weakness, no paresthesia. He does complain of generalized weakness Psychno depression, no anxiety Physical Exam 2 Physical Exam: General-alert and oriented x3 but appears ill. HEENT-head atraumatic and normocephalic, pupils equal and reactive to light, extraocular muscles intact Neck-no lymphadenopathy or thyromegaly, trachea midline Chest-clear to auscultation. No rales, wheezing or rhonchi Cardiac-mildly tachycardic regular rate and rhythm, normal S1 and S2 Abdomen-normal bowel sounds, no hepatosplenomegaly Extremities-no cyanosis, clubbing, or edema Neuro-cranial nerves II through XII intact, motor and sensory function within normal limits, strength symmetrical with generalized weakness, no focal deficits Psych-flat affect Results & Data Results & Data Vital Signs (Past 12 Hours) Vital Signs Temp Pulse Pulse Resp BP BP Pulse Ox 01/28/25 12:54 37.3 C 123 H 20 143/86 H 92 01/28/25 12:30 145/83 H 01/28/25 12:27 123 H 23 95 01/28/25 12:03 122 H 19 01/28/25 12:00 132/76 01/28/25 11:00 115 H 19 148/88 H 95 01/28/25 09:40 37.9 C H 110 H 19 134/81 95 01/28/25 09:16 108 H 17 118/86 95 01/28/25 09:16 95 01/28/25 08:47 113 H 01/28/25 08:17 37.7 C H 120 H 18 127/76 94 O2 Del Method 01/28/25 12:54 Room Air 01/28/25 12:30 01/28/25 12:27 01/28/25 12:03 01/28/25 12:00 01/28/25 11:00 Room Air 01/28/25 09:40 Room Air 01/28/25 09:16 Room Air 01/28/25 09:16 Room Air 01/28/25 08:47 01/28/25 08:17 Room Air Laboratory Results 01/28/25 09:05 01/28/25 09:05 Code Status & VTE Plan Code Status Full code PG Care Time/CCT Total # of Minutes Spent Total Time Spent with Patient: Total time spent is greater than 50% in coordination of care (as documented) at patient's floor/unit and/or counseling patient: Coding Level of Care Code 12043 INT INP/OBS CARE 3/75MIN Diagnoses Sepsis A41.9 Bilateral ureteral calculi N20.1 Hydroureteronephrosis N13.30 Complicated UTI (urinary tract infection) N39.0 Type 2 diabetes mellitus E11.9
[2025-01-28] MEDS ORDERED: PROPOFOL IV EMULSION 10 MG/ML 20 ML VIAL IV ONE (13:37)
[2025-01-28] MEDS ORDERED: LIDOCAINE 2% 2 ML VIAL/AMP(20MG/ML) INFIL ONE (13:37)
[2025-01-28] MEDS: LACTATED RINGER'S 1,000 ML IV SCH (13:40)
[2025-01-28] MEDS ORDERED: ONDANSETRON INJ 2 MG/ML 2 ML VIAL IV PRN ×2 (13:41→17:28)
[2025-01-28] MEDS ORDERED: PHENYLEPHRINE 100MCG/ML 5ML SYR IV PRN (13:41)
[2025-01-28] MEDS ORDERED: ATROPINE SULFATE 0.1 MG/ML 10ML SYR IV PRN (13:41)
[2025-01-28] MEDS ORDERED: MIDAZOLAM HCL 1 MG/ML 2ML VIAL ONE (13:43)
[2025-01-28] MEDS ORDERED: KETAMINE HCL 10MG/ML SYR ONE (14:18)
--- NOTE | 2025-01-28 14:35 | Operative Report ---
PG Post Operative Report Pre & Post Diagnosis Operation Date: 01/28/25 12:50 Pre-Op Diagnosis: Ureteral calculi, bilateral Post-Op Diagnosis: Ureteral calculi, bilateral I identified the patient and participated in the time-out.: Yes Procedure Operation Date: 01/28/25 12:50 Actual Procedures p Cystoscopy, Bilateral Retrograde Pyelogram, Bilateral Stent Placement(Bilateral) - Arley Baptiste MD Surgeon Arley Baptiste MD Grades 7 And 8 Visiting Teacher none Estimated Blood Loss 0 Findings Consistent with Post-Op Diagnosis Specimens none Description of Procedure The patient was identified in the preoperative holding area, appropriate informed consents were reviewed and completed and the patient was transferred to the operative suite. Upon arrival, appropriate antibiotics and anesthesia were administered and the patient was placed in dorsal lithotomy position and prepped and draped in sterile fashion. Beginning he has a past 21 Panamanian cystoscope with 30 degree lens. Inspection revealed healthy appearing urethra, prostate was somewhat friable and the mucosa of the trigone was similar. There were no tumors or other abnormalities within the bladder itself. There was no significant debris or pus. I turned my attention to the right UO and I cannulated with a sensor wire and a 5 [place]amanian open-ended catheter. The wire advanced to the kidney without difficulty and I proceeded to place a 6 Panamanian by 26 cm double-J stent. There was good curl in the kidney as well as the bladder. I then turned my attention to the left UO. I cannulated it with a sensor wire 5 [place]amanian open-ended. The wire advanced to the kidney without difficulty. Of note, he has a delayed nephrogram from his prior contrast and this easily confirmed an upper pole position of the wire. A 6 Panamanian by 26 intimated double-J stent was placed without difficulty and the case was concluded. Of note, I did place a 16 Panamanian catheters anticipate he may have some difficulty with voiding secondary to the friability and inflammation of his prostate and his somnolent nature going into the case. He remains quite ill and will be closely monitored in recovery and for the remainder of his hospitalization. I attest to the content of the Intraoperative Record and any orders documented therein. Any exceptions are noted below.
--- NOTE | 2025-01-28 14:43 | Fluoroscopy Report ---
FL KUB CLINICAL HISTORY: B/L STENT bilateral ureteral stent placement COMPARISON STUDY: CT 01/28/2025 FLUOROSCOPY TIME: 6.5 seconds FLUOROSCOPY IMAGES: 2 EXPOSURE DOSE: 3.05 mGy FINDINGS: Proximal portion of the ureteral stents appear to be in satisfactory positioning. Mild left -sided hydronephrosis. IMPRESSION: Fluoroscopic assistance as above. ACT 112: Negative or not required by law. Electronically signed by: Kilo Alonzo M.D. 01/28/2025 2:42 PM
--- NOTE | 2025-01-28 15:43 | Anesthesiology Progress Note ---
Date of Service January 28, 2025 Anesthesia Post Procedure Vital Signs Vital Signs: Temp Pulse Pulse Pulse Resp BP BP 01/28/25 15:30 123 H 24 119/61 01/28/25 15:20 37.4 C 124 H 30 H 118/66 01/28/25 15:10 128 H 28 H 118/86 01/28/25 15:00 126 H 30 H 129/67 01/28/25 14:50 129 H 29 H 132/70 01/28/25 14:40 37.4 C 131 H 30 H 122/72 01/28/25 13:21 37.8 C H 125 H 28 H 159/80 H 01/28/25 12:54 37.3 C 123 H 20 143/86 H 01/28/25 12:30 145/83 H 01/28/25 12:27 123 H 23 01/28/25 12:03 122 H 19 01/28/25 12:00 132/76 01/28/25 11:00 115 H 19 148/88 H 01/28/25 09:40 37.9 C H 110 H 19 134/81 01/28/25 09:16 108 H 17 118/86 01/28/25 09:16 01/28/25 08:47 113 H 01/28/25 08:17 37.7 C H 120 H 18 127/76 Pulse Ox O2 Del Method O2 Flow Rate 01/28/25 15:30 95 Nasal Cannula 2 01/28/25 15:20 96 Nasal Cannula 2 01/28/25 15:10 96 Nasal Cannula 2 01/28/25 15:00 97 Nasal Cannula 2 01/28/25 14:50 97 Oxymask 5 01/28/25 14:40 96 Oxymask 5 01/28/25 13:21 93 Room Air 01/28/25 12:54 92 Room Air 01/28/25 12:30 01/28/25 12:27 95 01/28/25 12:03 01/28/25 12:00 01/28/25 11:00 95 Room Air 01/28/25 09:40 95 Room Air 01/28/25 09:16 95 Room Air 01/28/25 09:16 95 Room Air 01/28/25 08:47 01/28/25 08:17 94 Room Air Transfer of Care Handoff Completed per policy Notes Mental Status: alert / awake / arousable Patient Amnestic to Procedure: Yes Nausea / Vomiting: adequately controlled Pain: adequately controlled Airway Patency, RR, SpO2: stable & adequate BP & HR: stable & adequate Hydration State: stable & adequate Anesthetic Complications: no major complications apparent
[2025-01-28] MEDS ORDERED: DEXTROSE 50% 50 ML SYRINGE IV PRN (17:28)
[2025-01-28] MEDS ORDERED: GLUCAGON FOR INJ 1 MG VIAL SQ PRN (17:28)
[2025-01-28] MEDS ORDERED: GLUCOSE 10 TAB/TUBE PO PRN (17:28)
[2025-01-28] MEDS ORDERED: CARBOHYDRATES FOR HYPOGLYCEMIA PO PRN (17:28)
[2025-01-28] MEDS ORDERED: GLUCOSE 40% GEL 15 GM TUBE PO PRN (17:28)
--- NOTE | 2025-01-28 18:05 | Electrocardiogram Report ---
Test Reason : Blood Pressure : */* mmHG Vent. Rate : 114 BPM Atrial Rate : 114 BPM P-R Int : 162 ms QRS Dur : 88 ms QT Int : 318 ms P-R-T Axes : 16 -27 72 degrees QTcB Int : 438 ms Sinus tachycardia Low voltage QRS Poor R wave progression, consider anterior OR vs. lead placement vs. LVH Abnormal ECG When compared with ECG of 09-Nov-2024 10:40, Minimal criteria for Anterior infarct are now Present Nonspecific T wave abnormality no longer evident in Inferior leads Nonspecific T wave abnormality now evident in Lateral leads Confirmed by Arley Palma ([id number]) on 01/28/2025 6:05:24 PM Referred By: REFERRED SELF Confirmed By: Arley Palma
[2025-01-28 19:10] LABS: Appearance Urine Turbid (Clear); Bacteria Urine Automated None Seen (None Seen); Cast Urine Automated 0-2 /lpf (0-2); Epithelial Cell Urine Auto 0-2 /hpf (0-2); Glucose Urine UA Negative (Negative); RBC Urine Automated >20 /hpf (0-2); WBC Urine Automated >50 /hpf (0-5)
[2025-01-28] MEDS: INSULIN ASPART PER UNIT CHARGE SC SCH (19:44)
[2025-01-28] MEDS: SODIUM CHLORIDE 0.9% 1,000 ML IV SCH (19:58)
[2025-01-28] MEDS: CEFEPIME 2000MG 2,000 MG/20 ML SYR IV SCH (20:02)
[2025-01-28] MEDS: FINASTERIDE 5 MG TAB PO SCH (20:03)
[2025-01-28] MEDS: PRAVASTATIN SOD 20 MG TAB PO SCH (20:04)
[2025-01-28 23:03] LABS: A calco-baum cmplx NotReported Not Detected (NotDetected); Bact fragilis Not Reported Not Detected (NotDetected); Blood Culture Id Panel See PCR Comment (NotDetected); C auris Not Reported Not Detected (NotDetected); CTX-M Resistant Gene Not Detected (NotDetected); Calbicans Not Reported Not Detected (NotDetected); Candida glabrata Not Reported Not Detected (NotDetected); Candida krusei Not Reported Not Detected (NotDetected); Cneoformans/gatti Not Reported Not Detected (NotDetected); Cparapsilosis Not Reported Not Detected (NotDetected); Ctropicalis Not Reported Not Detected (NotDetected); E cloacae compx Not Reported Not Detected (NotDetected); Efaecalis Not Reported Not Detected (NotDetected); Efaecium Not Reported Not Detected (NotDetected); Enterobacterales DETECTED (NotDetected); Enterobacterales Not Reported DETECTED (NotDetected); Escherichia coli Not Reported Not Detected (NotDetected); H influenzae Not Reported Not Detected (NotDetected); IMP Resistant Gene Not Detected (NotDetected); K aerogenes Not Reported Not Detected (NotDetected); KPC Resistant Gene Not Detected (NotDetected); Koxytoca Not Reported Not Detected (NotDetected); Kpneumoniae grp Not Reported Not Detected (NotDetected); Lmonocyt Not Reported Not Detected (NotDetected); N meningitidis Not Reported Not Detected (NotDetected); NDM Resistant Gene Not Detected (NotDetected); OXA 48 Like Resistant Gene Not Detected (NotDetected); P aeruginosa Not Reported Not Detected (NotDetected); Proteus spp Not Reported DETECTED (NotDetected); Salmonella spp Not Reported Not Detected (NotDetected); Staph lugdunensis Not Reported Not Detected (NotDetected); Staph spp. Not Reported Not Detected (NotDetected); Staphaureus Not Reported Not Detected (NotDetected); Staphepi Not Reported Not Detected (NotDetected); Stenmaltophilia Not Reported Not Detected (NotDetected); Strep agal(GrpB) Not Reported Not Detected (NotDetected); Strep pneum Not Reported Not Detected (NotDetected); Strep pyog (GrpA) Not Reported Not Detected (NotDetected); Strep spp Not Reported Not Detected (NotDetected); VIM Resistant Gene Not Detected (NotDetected)
[2025-01-28 23:07] LABS: Proteus species DETECTED (NotDetected)
[2025-01-29] MEDS: ACETAMINOPHEN 325 MG TAB PO PRN (03:32)
--- NOTE | 2025-01-29 07:35 | Urology Progress Note ---
Date of Service January 29, 2025 Assessment & Plan (1) Hydronephrosis: Plan: Patient is POD 1 from Cystoscopy, Bilateral Retrograde Pyelogram, Bilateral Stent Placement(Bilateral). Feeling better this morning. Blood cultures showing proteus mirabilis. On cefepime at this time. Urine culture pending. Will need urology follow up as outpatient to schedule definitive stone management. Does not need to be npo for urology at this time. (2) Ureterolithiasis: Admission and Anticipated Discharge Date Admission Date: January 28, 2025 Subjective 74 year old patient POD 1 from Cystoscopy, Bilateral Retrograde Pyelogram, Bilateral Stent Placement(Bilateral) with Dr Baptiste. Feeling improved some this morning. He did have some fluctuation in temperature. Physical Exam Physical Exam: alert, NAD. VSS. T max 38.[address] and draining appropriately. Mild hematuria Results & Data Vital Signs (Past 12 Hours) Vital Signs Temp Pulse Pulse Pulse Resp BP BP 01/29/25 07:06 36.7 C 88 18 105/65 01/29/25 03:30 38.3 C H 109 H 18 117/64 01/28/25 23:59 99 H 01/28/25 23:17 36.9 C 101 H 18 110/71 01/28/25 19:45 36.8 C 97 H 18 107/66 Pulse Ox O2 Del Method O2 Flow Rate 01/29/25 07:06 95 Nasal Cannula 2 01/29/25 03:30 93 Nasal Cannula 2 01/28/25 23:59 01/28/25 23:17 94 Nasal Cannula 2 01/28/25 19:45 95 Nasal Cannula 2 PG Care Time/CCT Total # of Minutes Spent Total Time Spent with Patient: Total time spent is greater than 50% in coordination of care (as documented) at patient's floor/unit and/or counseling patient: Coding Level of Care Code 95036 SUB INP/OBS CARE 2/35MIN Diagnoses Hydronephrosis Q62.11 Hydronephrosis type: with ureteropelvic junction obstruction Ureterolithiasis N20.1 (1) Hydronephrosis Hydronephrosis type: with ureteropelvic junction obstruction Qualified Code(s): Q62.11 - Congenital occlusion of ureteropelvic junction
[2025-01-29 07:53] LABS: Hematocrit (blood only) 35.5 % (42.0-52.0); Hemoglobin 12.2 g/dl (14.0-18.0); Immature Granulocytes # (auto) 0.05 K/uL (0.01-0.20); Immature Granulocytes % (auto) 0.7 %; Mean Corpuscular Hemoglobin 32.6 pg (25.0-34.0); Mean Corpuscular Volume 94.9 fL (80.0-100.0); Platelet Count 115 K/uL (130-400); RDW Standard Deviation 47.8 fL (36.4-46.3); Red Blood Count 3.74 M/uL (4.70-6.10); White Blood Count 7.24 K/ul (4.8-10.8)
[2025-01-29 08:20] LABS: Anion Gap 8.0 (3-11); Blood Urea Nitrogen 20.0 mg/dl (6-23); Calcium 7.9 mg/dl (8.6-10.3); Carbon Dioxide 24.0 mmol/L (21-32); Chloride 106.0 mmol/L (98-107); Creatinine Clr Calc Pharmacy 110.2 ml/min; Glucose 137.0 mg/dl (70-99(Fasting)); Potassium 3.6 mmol/L (3.5-5.1); Sodium 138.0 mmol/L (136-145)
[2025-01-29] MEDS: ASPIRIN 81 MG CHEW PO SCH (09:40)
[2025-01-29] MEDS: CALCIUM 600MG + VIT D 400 IU TAB PO SCH (09:40)
[2025-01-29] MEDS: cefTRIAXone SODIUM 2,000 MG/50 ML BAG IV SCH (11:26)
--- NOTE | 2025-01-29 14:48 | Hospitalist Progress Note ---
Date of Service January 29, 2025 Assessment & Plan (1) Sepsis: Plan: Present on admission. Due to urinary tract infection. Now resolved. (2) Gram-negative bacteremia: Plan: Proteus isolated. Cefepime switched to Rocephin. Will repeat blood cultures again today, January 29 (3) Bilateral ureteral calculi: Plan: Urology consultation appreciated. Cystoscopy completed yesterday, January 29, with bilateral ureteral stents placed. (4) Hydroureteronephrosis: Plan: Left sided seen on CT scan done on admission due to left ureteral calculus obstruction. He had bilateral ureteral stents placed by urology yesterday, January 28 (5) Complicated UTI (urinary tract infection): Plan: Urine culture nondiagnostic but Proteus isolated in the blood. Cefepime switched over to Rocephin. (6) Type 2 diabetes mellitus: Plan: ADA diet. Sliding scale coverage. Metformin and other home medications are on hold Plan Hopeful discharge to home on an oral antibiotic tomorrow, January 30 Admission and Anticipated Discharge Date Admission Date: January 28, 2025 Subjective Alert and oriented. No acute distress. Metabolic encephalopathy has completely resolved. Gram-negative bacteria in the blood identified as Proteus. Cefepime de-escalated to Rocephin. Repeat blood cultures ordered today, January 29. IV fluids have been discontinued and diet has been ordered. Metabolic encephalopathy symptoms have completely resolved. Hopefully he can go home tomorrow, January 30 on an oral antibiotic. Bilateral ureteral stents were placed by urology yesterday, January 28. Review of Systems 2 Review of Systems: Constitutionalfevers and rigors have resolved ENTno blurred vision, no double vision, no epistaxis, no sore throat Respiratoryno cough, no wheezing, no shortness of breath Cardiacno palpitations, no chest pain, no syncope Anna nausea, vomiting, diarrhea, melena, hematochezia GUdysuria. No gross hematuria. Musculoskeletalno joint pain, no muscle tenderness Skinno bruising, no rashes, no pruritus Neurono isolated weakness, no paresthesia. Psychno depression, no anxiety Physical Exam 2 Physical Exam: General-alert and oriented x3. No fever HEENT-head atraumatic and normocephalic, pupils equal and reactive to light, extraocular muscles intact Neck-no lymphadenopathy or thyromegaly, trachea midline Chest-clear to auscultation. No rales, wheezing or rhonchi Cardiac-regular rate and rhythm. Normal S1 and S2 Abdomen-normal bowel sounds, no hepatosplenomegaly Extremities-no cyanosis, clubbing, or edema Neuro-cranial nerves II through XII intact, motor and sensory function within normal limits, strength symmetrical , no focal deficits Psych-normal affect, normal mood Results & Data Results & Data Vital Signs (Past 12 Hours) Vital Signs Temp Pulse Pulse Pulse Pulse Resp BP 01/29/25 13:00 122 H 01/29/25 13:00 39.3 C H 01/29/25 11:30 97 H 16 01/29/25 11:06 36.8 C 92 H 18 105/67 01/29/25 08:00 01/29/25 07:30 95 H 01/29/25 07:06 36.7 C 88 18 105/65 01/29/25 03:30 38.3 C H 109 H 18 117/64 Pulse Ox O2 Del Method O2 Flow Rate 01/29/25 13:00 01/29/25 13:00 01/29/25 11:30 92 Room Air 01/29/25 11:06 90 Room Air 01/29/25 08:00 Room Air 01/29/25 07:30 01/29/25 07:06 95 Nasal Cannula 2 01/29/25 03:30 93 Nasal Cannula 2 Laboratory Results 01/29/25 06:20 01/29/25 06:20 PG Care Time/CCT Total # of Minutes Spent Total Time Spent with Patient: Total time spent is greater than 50% in coordination of care (as documented) at patient's floor/unit and/or counseling patient: Coding Level of Care Code 36642 SUB INP/OBS CARE 3/50MIN Diagnoses Sepsis A41.9 Gram-negative bacteremia R78.81 Bilateral ureteral calculi N20.1 Hydroureteronephrosis N13.30 Complicated UTI (urinary tract infection) N39.0 Type 2 diabetes mellitus E11.9
[2025-01-30 07:06] LABS: Anion Gap 7.0 (3-11); Blood Urea Nitrogen 16.0 mg/dl (6-23); Calcium 8.1 mg/dl (8.6-10.3); Carbon Dioxide 24.0 mmol/L (21-32); Chloride 106.0 mmol/L (98-107); Creatinine Clr Calc Pharmacy 121.0 ml/min; Glucose 120.0 mg/dl (70-99(Fasting)); Potassium 3.5 mmol/L (3.5-5.1); Sodium 137.0 mmol/L (136-145)
[2025-01-30 07:12] LABS: Hematocrit (blood only) 34.4 % (42.0-52.0); Hemoglobin 11.9 g/dl (14.0-18.0); Immature Granulocytes # (auto) 0.02 K/uL (0.01-0.20); Immature Granulocytes % (auto) 0.3 %; Mean Corpuscular Hemoglobin 32.6 pg (25.0-34.0); Mean Corpuscular Volume 94.2 fL (80.0-100.0); Platelet Count 93 K/uL (130-400); RDW Standard Deviation 45.3 fL (36.4-46.3); Red Blood Count 3.65 M/uL (4.70-6.10); White Blood Count 5.72 K/ul (4.8-10.8)
--- NOTE | 2025-01-30 09:12 | Urology Progress Note ---
Date of Service January 30, 2025 Assessment & Plan (1) Ureterolithiasis: Plan: POD 2 from cystoscopy and bilateral stent placement. Feeling well this morning. hgb 11.9/Cr 0.69 Initial blood cultures show proteus mirabilis. Repeat cultures pending. Antibiotic changed to ceftriaxone. Should follow up with urology next week (he said he has an appointment with Dr. Cruz) Continue kan catheter until follow up (2) Hydronephrosis: Admission and Anticipated Discharge Date Admission Date: January 28, 2025 Subjective 74 year old patient POD 2 from cystoscopy and bilateral stent placement. Doing fairly well this morning. No pain. No other complaints. Antibiotic was changed to ceftriaxone. Physical Exam Constitutional: no acute distress Genitourinary: Catheter in place. Draining mostly clear yellow urine with a tinge of blood Results & Data Vital Signs (Past 12 Hours) Vital Signs Temp Pulse Pulse Resp BP BP Pulse Ox 01/30/25 08:04 36.6 C 84 20 120/71 92 01/30/25 04:00 36.8 C 92 H 18 122/72 92 01/30/25 03:21 37.4 C 98 H 18 123/76 93 01/29/25 23:09 36.9 C 92 H 20 129/75 92 01/29/25 21:55 89 O2 Del Method 01/30/25 08:04 Room Air 01/30/25 04:00 Room Air 01/30/25 03:21 Room Air 01/29/25 23:09 Room Air 01/29/25 21:55 PG Care Time/CCT Total # of Minutes Spent Total Time Spent with Patient: Total time spent is greater than 50% in coordination of care (as documented) at patient's floor/unit and/or counseling patient: Coding Level of Care Code None Diagnoses Ureterolithiasis N20.1 Hydronephrosis Q62.11 Hydronephrosis type: with ureteropelvic junction obstruction (2) Hydronephrosis Hydronephrosis type: with ureteropelvic junction obstruction Qualified Code(s): Q62.11 - Congenital occlusion of ureteropelvic junction
[2025-01-30] MEDS: MESALAMINE 1.2 GM TABDR PO SCH (12:59)
--- NOTE | 2025-01-30 13:55 | Hospitalist Progress Note ---
Date of Service January 30, 2025 Assessment & Plan (1) Sepsis: Plan: Present on admission. Due to urinary tract infection. Now resolved. (2) Gram-negative bacteremia: Plan: Proteus isolated. Cefepime switched to Rocephin. Blood cultures obtained January 29 remain negative to date. He is currently on intravenous Rocephin, antibiotic day 3. He will be switched over to an oral antibiotic at discharge to complete a 2-week course. (3) Bilateral ureteral calculi: Plan: Urology consultation appreciated. Cystoscopy completed on January 29 with bilateral ureteral stents placed. Hopper catheter will remain in place at discharge. He will follow-up with Dr. Cruz next week (4) Hydroureteronephrosis: Plan: Left sided seen on CT scan done on admission due to left ureteral calculus obstruction. He had bilateral ureteral stents placed by urology on January 28. Hydronephrosis is expected to resolve (5) Complicated UTI (urinary tract infection): Plan: Urine culture nondiagnostic but Proteus isolated in the blood. Cefepime switched over to Rocephin while hospitalized. He will be changed to an oral antibiotic at discharge to complete a 2-week course. (6) Type 2 diabetes mellitus: Plan: ADA diet. Sliding scale coverage. Metformin and other home medications are on hold. Usual diabetic management will be restarted at discharge Plan Hopeful discharge to [facility] tomorrow, January 31 Admission and Anticipated Discharge Date Admission Date: January 28, 2025 Subjective Alert and oriented. Physical therapy has recommended short-term rehab placement at discharge. He is willing to go back to [facility]. Case management aware. Repeat blood cultures done on January 29 remain negative to date. Cefepime has been switched over to Rocephin, antibiotic day 3. Hopper catheter will remain in place at discharge. He had bilateral ureteral stents placed this admission and will follow-up with Dr. Cruz next week. Review of Systems 2 Review of Systems: Constitutionalfevers and rigors have resolved ENTno blurred vision, no double vision, no epistaxis, no sore throat Respiratoryno cough, no wheezing, no shortness of breath Cardiacno palpitations, no chest pain, no syncope Anna nausea, vomiting, diarrhea, melena, hematochezia GUdysuria. No gross hematuria. Musculoskeletalno joint pain, no muscle tenderness Uro- Hopper catheter in place. No gross hematuria Skinno bruising, no rashes, no pruritus Neurono isolated weakness, no paresthesia. Psychno depression, no anxiety Physical Exam 2 Physical Exam: General-alert and oriented x3. No fever HEENT-head atraumatic and normocephalic, pupils equal and reactive to light, extraocular muscles intact Neck-no lymphadenopathy or thyromegaly, trachea midline Chest-clear to auscultation. No rales, wheezing or rhonchi Cardiac-regular rate and rhythm. Normal S1 and S2 Abdomen-normal bowel sounds, no hepatosplenomegaly Uro- Hopper catheter in place. No gross hematuria Extremities-no cyanosis, clubbing, or edema Neuro-cranial nerves II through XII intact, motor and sensory function within normal limits, strength symmetrical , no focal deficits Psych-normal affect, normal mood Results & Data Results & Data Vital Signs (Past 12 Hours) Vital Signs Temp Pulse Resp BP BP Pulse Ox O2 Del Method 01/30/25 12:29 35.9 C L 64 20 119/64 Room Air 01/30/25 11:28 36.6 C 92 H 20 132/76 93 Room Air 01/30/25 08:04 36.6 C 84 20 120/71 92 Room Air 01/30/25 04:00 36.8 C 92 H 18 122/72 92 Room Air 01/30/25 03:21 37.4 C 98 H 18 123/76 93 Room Air Laboratory Results 01/30/25 05:22 01/30/25 05:22 PG Care Time/CCT Total # of Minutes Spent Total Time Spent with Patient: Total time spent is greater than 50% in coordination of care (as documented) at patient's floor/unit and/or counseling patient: Coding Level of Care Code 07217 SUB INP/OBS CARE 2/35MIN Diagnoses Sepsis A41.9 Gram-negative bacteremia R78.81 Bilateral ureteral calculi N20.1 Hydroureteronephrosis N13.30 Complicated UTI (urinary tract infection) N39.0 Type 2 diabetes mellitus E11.9
[2025-01-30] MEDS ORDERED: POLYETHYLENE (MIRALAX) 17 GM PACK PO PRN (21:07)
[2025-01-30] MEDS: MELATONIN 3 MG TAB PO PRN (22:10)
[2025-01-30] MEDS: DOCUSATE SODIUM 100 MG CAP PO PRN (22:10)
[2025-01-31] MEDS ORDERED: AMOXICILLIN/CLAVULANATE 875MG HOME PACK PO SCH
[2025-01-31 06:59] VITALS: O2SAT 95
[2025-01-31 07:41] LABS: Hematocrit (blood only) 36.5 % (42.0-52.0); Hemoglobin 12.5 g/dl (14.0-18.0); Immature Granulocytes # (auto) 0.04 K/uL (0.01-0.20); Immature Granulocytes % (auto) 0.7 %; Mean Corpuscular Hemoglobin 31.8 pg (25.0-34.0); Mean Corpuscular Volume 92.9 fL (80.0-100.0); Platelet Count 106 K/uL (130-400); RDW Standard Deviation 45.3 fL (36.4-46.3); Red Blood Count 3.93 M/uL (4.70-6.10); White Blood Count 5.89 K/ul (4.8-10.8)
[2025-01-31 08:03] LABS: Anion Gap 8.0 (3-11); Blood Urea Nitrogen 14.0 mg/dl (6-23); Calcium 8.4 mg/dl (8.6-10.3); Carbon Dioxide 25.0 mmol/L (21-32); Chloride 105.0 mmol/L (98-107); Creatinine Clr Calc Pharmacy 159.7 ml/min; Glucose 126.0 mg/dl (70-99(Fasting)); Potassium 3.4 mmol/L (3.5-5.1); Sodium 138.0 mmol/L (136-145)
[2025-01-31] MEDS: POTASSIUM CHLORIDE CRTAB 20 MEQ TABCR PO STA (09:24)
--- NOTE | 2025-01-31 10:26 | Discharge Summary ---
Discharge Summary Date of Service January 31, 2025 Principal Dx & Hospital Course #1 = Principal Diagnosis (1) Sepsis: Present on admission. Due to urinary tract infection. Now resolved. (2) Gram-negative bacteremia: Proteus isolated. Cefepime switched to Rocephin. Blood cultures obtained January 29 remain negative. He is currently on intravenous Rocephin, antibiotic day 4. He will be switched over to Augmentin at discharge to complete a 2-week course. (3) Bilateral ureteral calculi: Urology consultation appreciated. Cystoscopy completed on January 29 with bilateral ureteral stents placed. Hopper catheter will remain in place at discharge. He will follow-up with Dr. Cruz next week (4) Hydroureteronephrosis: Left sided seen on CT scan done on admission due to left ureteral calculus obstruction. He had bilateral ureteral stents placed by urology on January 28. Hydronephrosis is expected to resolve (5) Complicated UTI (urinary tract infection): Urine culture nondiagnostic but Proteus isolated in the blood. Cefepime switched over to Rocephin while hospitalized. He will be changed to Augmentin at discharge to complete a 2-week course. (6) Type 2 diabetes mellitus: ADA diet. Sliding scale coverage. Metformin and other home medications are on hold. Usual diabetic management will be restarted at discharge Plan Discharge to [facility] today, January 31 Admission HPI Per Admitting Provider 74-year-old white male who developed weakness, fevers, rigors, and dysuria today. He came to the ED for evaluation. He was found to have evidence of a UTI and bilateral ureteral calculi. He has been seen in consultation by urology and will be undergoing cystoscopy with bilateral ureteral stent placement later today, January 28. He has some nausea but denies vomiting, melena, hematochezia. He received cefepime in the ED. He is allergic to sulfa and ciprofloxacin Discharge Exam General-alert and oriented x3. No fever HEENT-head atraumatic and normocephalic, pupils equal and reactive to light, extraocular muscles intact Neck-no lymphadenopathy or thyromegaly, trachea midline Chest-clear to auscultation. No rales, wheezing or rhonchi Cardiac-regular rate and rhythm. Normal S1 and S2 Abdomen-normal bowel sounds, no hepatosplenomegaly Uro- Hopper catheter in place. No gross hematuria Extremities-no cyanosis, clubbing, or edema Neuro-cranial nerves II through XII intact, motor and sensory function within normal limits, strength symmetrical , no focal deficits Psych-normal affect, normal mood Discharge Plan Discharge Items Patient Disposition: Transfer Group Home Fac Reason For Visit: UTI, SEPSIS Discharge Diagnosis: Sepsis, Proteus UTI, Proteus bacteremia, ureteral calculus and colic with obstruction and left hydronephrosis, ambulatory dysfunction Condition on Discharge: Good Activity: Per Instructions section Activity Comment: Up with assistance only Non-emergency contact: Primary Care Provider Call non-emergency contact if: your symptoms worsen Follow-up/Referrals: Luis Cruz MD [Physician] - 02/04/25 8:20 am Kim Olivera MD [Primary Care Provider] - Diet: Carb Consistent or DM2 Addtl Attending Provider Instructions: Take amoxicillin/clavulanate (Augmentin) twice daily for 10 more days. See primary care provider as soon as possible after discharge from [facility] Pending Studies at Discharge: No Stand-Alone Forms: My [facility] Skilled Items Patient informed of condition?: Yes DNR: No Discharge Level of Care: Skilled Communicable Disease: No Discharge Prognosis: Stable Lines: None Urinary Catheter: Yes Medications and DC Order Prescriptions: New amoxicillin-pot clavulanate 875-125 mg tablet 1 tab PO BID Qty: 20 0RF Continued pravastatin 20 mg tablet 20 mg PO HS mecobalamin (vitamin B12) 1,000 mcg tablet,chewable 1,000 mcg PO DAILY lisinopril 2.5 mg tablet 2.5 mg PO QPM (DME) lancets Misc See Rx Instructions .Route Rx Instructions: As directed (DME) blood sugar diagnostic Strip See Rx Instructions .Route Rx Instructions: As directed vitamin E (dl, acetate) 450 mg (1,000 unit) capsule 450 mg PO DAILY finasteride 5 mg tablet 5 mg PO QPM metformin 500 mg tablet extended release 24 hr 1,000 mg PO BID Ozempic 0.25 mg or 0.5 mg (2 mg/3 mL) pen injector 0.5 mg SUBCUT WK Rx Instructions: monday mesalamine 1.2 gram tablet,delayed release (DR/EC) 2.4 g PO BID diphenhydramine-acetaminophen [Tylenol PM Extra Strength] 25-500 mg Tablet 2 tab PO HS calcium carbonate-vitamin D3 [Calcium 500 + D] 500 mg-10 mcg (400 unit) Tablet 1 tab PO DAILY aspirin [Aspirin Childrens] 81 mg Tablet,Chewable 81 mg PO Q OTHER DAY oxycodone 5 mg Tablet 5 - 10 mg PO Q4H PRN (Reason: pain) Qty: 14 0RF Rx Instructions: 5mg moderate pain 10mg severe pain sildenafil 100 mg tablet 100 mg PO DAILY PRN (Reason: sexual activity) Qty: 30 2RF ibuprofen 200 mg Tablet 200 mg PO .Q4-6H PRN (Reason: Pain) Fiber Gummies 2 gram Tablet,Chewable 4 g PO QAM Discharge Orders: Discharge Order (Routine); Ordered 01/31/25 Ordered By: Siddhartha Haynes Admission Data Admit Date/Time: 01/28/25 12:37 Attending Provider: Siddhartha Haynes Admit Provider: Siddhartha Haynes Primary Care Provider: Kim Olivera Other Providers: Siddhartha Haynes; Arley Baptiste; Neeraj Yip at [facility] Stay Data Consultations 01/28/25 12:34 ED Decision to Admit Stat 01/28/25 17:28 Consult Urology Routine Procedures Performed Operation Date: 01/28/25 12:50 Actual Procedures p Cystoscopy, Bilateral Retrograde Pyelogram, Bilateral Stent Placement(Bilateral) - Arley Baptiste MD Diagnostic Imagining Performed 01/28/25 10:42 CT abd pelvis IV con only Stat 01/28/25 13:00 FL KUB Routine Pending Results Patient Have Any Pending Studies at Discharge: No Discharge Instructions Given to Patient (Per Discharging Provider) Take amoxicillin/clavulanate (Augmentin) twice daily for 10 more days. See primary care provider as soon as possible after discharge from [facility] Total Time Total Time Spent Total Time Spent (In Minutes): 15 minutes Coding Level of Care Code 87236 INP/OBS DISCH >30 MIN Diagnoses Sepsis A41.9 Gram-negative bacteremia R78.81 Bilateral ureteral calculi N20.1 Hydroureteronephrosis N13.30 Complicated UTI (urinary tract infection) N39.0 Type 2 diabetes mellitus E11.9
[2025-01-31 11:54] VITALS: RESP 16; TEMP 98.4
[2025-01-31 12:19] VITALS: BP 132/73; PULSE 97
[2025-01-31] MEDS ORDERED: AMOXICILLIN/CLAVULANATE 875 MG TAB PO SCH (17:00)
--- NOTE | 2025-02-03 07:42 | Coding Query ---
To promote full compliance with coding requirements relating to patient care, provider participation is requested in all cases of certified coder uncertainty. Please assist us with the question(s) below: Coding Question(s): The diagnosis below was documented in the 01/29 Progress Note, then subsequently fell off all further documentation. Please indicate if it is still a possible diagnosis or ruled out. Physician's Response(s): METABOLIC ENCEPHALOPATHY (documented on the 01/29 Progress Note) (x ) Diagnosed and POA ( ) Diagnosed and not POA ( ) Ruled out ( ) Other (please specify) MTDD
== END 2025-01-31 12:57 | DRG 853 ==
LOC: SUATTDRO → ED 08:07 → EDINP 12:37 → 2W 16:30

== ENCOUNTER 2025-02-19 08:49 | Inpatient (IN) ==
[2025-02-19 09:36] LABS: Hematocrit (blood only) 39.2 % (42.0-52.0); Hemoglobin 13.5 g/dl (14.0-18.0); Mean Corpuscular Hemoglobin 32.5 pg (25.0-34.0); Mean Corpuscular Volume 94.2 fL (80.0-100.0); Platelet Count 199 K/uL (130-400); RDW Standard Deviation 45.3 fL (36.4-46.3); Red Blood Count 4.16 M/uL (4.70-6.10); White Blood Count 8.71 K/ul (4.8-10.8)
[2025-02-19] MEDS: SODIUM CHLORIDE 0.9% 1,000 ML IV ONE (09:38)
--- NOTE | 2025-02-19 09:51 | XRay Report ---
XR chest 1V portable CLINICAL HISTORY: Dyspnea COMPARISON STUDY: 01/28/2025 FINDINGS: Stable mild cardiomegaly with mild pulmonary vascular congestion. Stable mild diffuse pulmo nary interstitial prominence. No lobar consolidation or pleural effusion. No pneumothorax. IMPRESSION: CHF. ACT 112: Negative or not required by law. Electronically signed by: Mark Luna M.D. 02/19/2025 9:50 AM
--- NOTE | 2025-02-19 09:51 | Emergency Department Note ---
Impression & Plan UTI (urinary tract infection), Sepsis ED Provider Note NAME: CARLITOS LOCKHART AGE: 74 SEX: M : 1950 ARRIVES VIA: Ambulance INFORMANT: Patient, ED PROVIDER(S): Becky Fritz MD CHIEF COMPLAINT: Weakness, penile pain HPI: This is a 74-year-old male presenting for weakness, penile pain. Patient had a procedure with urology yesterday. He had a cystoscopy, Ureteronephroscopy, Laser Lithotripsy and Extraction of the Right Ureteral Stone, Exchange of Stent Catheter, done by urology. He was discharged home with a Hopper catheter. Today he noted penile pain when he woke up as well as new weakness. He felt warm. He came to the ER for the symptoms as he recently had sepsis. ROS: See above HPI for pertinent positives & negatives. A total of 10 systems reviewed and were otherwise negative. PAST MEDICAL HISTORY: See Below PAST SURGICAL HISTORY: See Below FAMILY HISTORY: See Below SOCIAL HISTORY: See Below HOME MEDICATIONS: See Below ALLERGIES: See Below VITALS: See Below PHYSICAL EXAMINATION: General: Fatigued appearing, chronically ill-appearing Head: Normocephalic and atraumatic Eyes: Normal inspection, extraocular muscles intact Ear, nose, throat: Normal external exam Neck: Normal range of motion Respiratory: lungs clear to auscultation bilaterally Cardiovascular: Regular rate/rhythm, no murmur GI: soft, nontender, no guarding or rebound Extremities: nontender, moves all extremities Neuro: The patient awake and alert, appropriately conversive, no focal deficits, symmetric faces Skin: Warm, dry, and intact MEDICAL DECISION MAKING: This is a 74-year-old male presenting for weakness, penile pain. Patient notes blood in the urine, weakness, fevers, chills. Patient going tachycardic and hypoxic requiring 3 L nasal cannula. - Consider sepsis, pneumonia, UTI, bacteremia, URI - Records reviewed including discharge summary from , patient had sepsis secondary to UTI/gram-negative bacteremia. Bilateral utero calculi as well. He was treated with cefepime/Rocephin which improved symptoms. He had procedure done yesterday, surgical note noted from Dr. Cruz, 02/18/2025 showing the procedure. -Blood work is reviewed today without leukocytosis. Hemoglobin 13.5, improved. No electrolyte disturbances. Urinalysis is positive for UTI. - Patient started on ceftriaxone and fluid resuscitation here. Will admit to the hospitalist for suspected sepsis, likely recurrent urinary source. Differential diagnosis: Sepsis, UTI, bacteremia, pneumonia Independent History obtained from: Diagnostics interpreted by me: ECG: ECG independently interpreted by me with sinus tachycardia at a rate of 125 with left axis deviation, normal QRS, normal QTc, no ST segment elevations consistent with STEMI criteria Cardiac Monitoring: An order was placed for continuous cardiac monitoring. The monitor shows a rate of 84 with sinus rhythm. Critical Care Note: I have personally spent 35 minutes of critical care time in the direct management of this patient. This includes bedside care, interpretation of diagnostic studies, and testing, discussion with consultants, patient, and family members, and other required patient management activities. This 35 minutes is in excess of all separately billable procedures. Past Med/Surg History Problem List (Updated 02/20/25 @ 14:27 by Becky Fritz MD) Sepsis (Acute) UTI (urinary tract infection) (Acute) E coli bacteremia HTN (hypertension) Painful penis Hydronephrosis (Acute) Ureterolithiasis (Acute) Complicated urinary tract infection (Acute) Hydroureteronephrosis Bilateral ureteral calculi Tinnitus of right ear Erectile dysfunction BPH (benign prostatic hyperplasia) Arthritis Kidney stones Epididymal cyst Medical History Type 2 diabetes mellitus Generalized weakness since sepsis early January 2025. has in-home physical therapy and home exercises History of recent hospitalization at [facility] end of December 2024 and early January 2025 - complicated UTI + sepsis. Hx of colonic polyps Ulcerative colitis Indwelling Hopper catheter present Hx of sepsis end of December 2024 treated at [facility] emergency room and inpatient. 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) History of right hip replacement ~2000 History of back surgery L4 discectomy Hx of appendectomy Family History Brother Prostate cancer both brothers Diabetes Heart disease Kidney stones Mother Breast cancer Family history of cervical cancer Father Diabetes Other No family history of adverse response to anesthesia Social History Smoking Status: Never smoker Second Hand Exposure: No; Do You Dip or Chew Tobacco: No; Hx Alcohol Use: Yes Alcohol type: beer Hx Substance Use: No Preferred Language: Vincentian Communication Ability: Effective Manager Waste[employer] Required: No Beliefs That Will Affect Care: None marital status: Current Living Situation: Spouse current occupational status: retired Feels Safe at Home: Yes Assistive Devices: Cane, Walker and Wheelchair Allergies Allergies Allergy/AdvReac Type Severity Reaction Status Date / Time ciprofloxacin [Cipro] Allergy Unknown PER PT Verified 02/18/25 05:50 "QUIT WORKING FOR UTI'S". sulfamethoxazole Allergy Unknown PER PT Verified 02/18/25 05:50 [From Bactrim] "QUIT WORKING FOR UTI'S". trimethoprim [From Bactrim] Allergy Unknown PER PT Verified 02/18/25 05:50 "QUIT WORKING FOR UTI'S". Home Meds Home Medications Medication Instructions Recorded Confirmed blood sugar diagnostic 08/23/21 02/04/25 lancets 08/23/21 02/04/25 lisinopril 2.5 mg tablet 2.5 mg PO HS 08/23/21 02/19/25 mecobalamin (vitamin B12) 1,000 1,000 mcg PO QPM 08/23/21 02/19/25 mcg chewable tablet pravastatin 20 mg tablet 20 mg PO HS 08/23/21 02/19/25 aspirin 81 mg chewable tablet 81 mg PO Q OTHER DAY 11/07/24 02/19/25 (Aspirin Childrens) calcium 500 mg (as 1 tab PO QAM 11/07/24 02/19/25 carbonate)-vitamin D3 10 mcg (400 unit) tablet (Calcium 500 + D) mesalamine 1.2 gram tablet,delayed 2.4 g PO BID 11/07/24 02/19/25 release metformin 500 mg tablet,extended 1,000 mg PO BID 11/07/24 02/19/25 release 24 hr semaglutide 0.25 mg or 0.5 mg (2 0.5 mg subcut WK 11/07/24 02/19/25 mg/3 mL) subcutaneous pen injector (Ozempic) inulin 2 gram chewable tablet 4 g PO QAM 01/13/25 02/19/25 (Prebiotic Fiber) bisacodyl 10 mg rectal suppository 10 mg OR DAILY PRN Constipation 02/04/25 02/19/25 Lactobacillus acidophilus 10 10,000 mmu cells PO QAM 02/11/25 02/19/25 billion cell capsule (Probiotic) acetaminophen 500 mg tablet 1,000 mg PO TID PRN Pain 02/11/25 02/19/25 (Tylenol Extra Strength) cholecalciferol (vitamin D3) 25 25 mcg PO HS 02/11/25 02/19/25 mcg (1,000 unit) tablet (Vitamin D3) doxylamine succinate 25 mg tablet 25 mg PO HS 02/11/25 02/19/25 vitamin E succinate 268 mg (400 268 mg PO QAM 02/11/25 02/19/25 unit) tablet Previous Rx's Medication Instructions Recorded sildenafil 100 mg tablet 100 mg PO DAILY PRN sexual 11/14/24 activity #30 tabs finasteride 5 mg tablet 5 mg PO QPM #90 tabs 02/04/25 amoxicillin 500 mg-potassium 1 tab PO BID #10 tabs 02/18/25 clavulanate 125 mg tablet Results & Data (ED) Vital Signs Vital Signs - 24 hr 02/19/25 09:10 02/19/25 09:10 02/19/25 09:14 Temperature 37.7 C H Temperature Source Oral Pulse Rate 121 H 123 H Respiratory Rate 18 Respiratory Effort / Characteristics Non-Labored Spontaneous Respiratory Depth Normal Respiratory Pattern Regular Blood Pressure 122/73 Blood Pressure Mean 89 Blood Pressure Position Sitting Pulse Oximetry 89 L 89 L Oxygen Delivery Method Room Air Room Air Oxygen Flow Rate Sepsis Recent Fever Within 48 Hours Yes Sepsis New/Unexplained Change in Mental Status N/A Sepsis Action Taken by Nursing No Action Required Oxygen Flow Rate - Titration 3 Pulse Oximetry Post Tiitration 93 02/19/25 09:46 Temperature Temperature Source Pulse Rate Respiratory Rate Respiratory Effort / Characteristics Respiratory Depth Respiratory Pattern Blood Pressure Blood Pressure Mean Blood Pressure Position Pulse Oximetry 96 Oxygen Delivery Method Nasal Cannula Oxygen Flow Rate 3 Sepsis Recent Fever Within 48 Hours Sepsis New/Unexplained Change in Mental Status Sepsis Action Taken by Nursing Oxygen Flow Rate - Titration Pulse Oximetry Post Tiitration Laboratory Data 02/20/25 05:28 02/20/25 05:28 Lab Results 02/19/25 02/19/25 02/19/25 Range/Units 09:07 09:41 10:35 WBC 8.71 (4.8-10.8) K/ul RBC 4.16 L (4.70-6.10) M/uL Hgb 13.5 L (14.0-18.0) g/dl Hct 39.2 L (42.0-52.0) % MCV 94.2 (80.0-100.0) fL MCH 32.5 (25.0-34.0) pg MCHC 34.4 (32.0-36.0) g/dL RDW Std Deviation 45.3 (36.4-46.3) fL RDW Coeff of Jyoti 13.2 (11.5-14.5) % Plt Count 199 (130-400) K/uL MPV 9.7 (9.4-12.4) fL Immature Gran % (Auto) 0.8 % Neut % (Auto) 91.1 % Lymph % (Auto) 4.6 % Camb[place] % (Auto) 3.0 % Eos % (Auto) 0.3 % Baso % (Auto) 0.2 % Neut # (Auto) 7.93 H (1.40-6.50) K/uL Lymph # (Auto) 0.40 L (1.20-3.40) K/uL [place] # (Auto) 0.26 (0.11-0.59) K/uL Eos # (Auto) 0.03 (0.00-0.50) K/uL Baso # (Auto) 0.02 (0.00-0.20) K/uL Immature Gran # (Auto) 0.07 (0.01-0.20) K/uL Polychromasia 1+ Tear Drop Cells 1+ Sodium 136 (136-145) mmol/L Potassium 3.9 (3.5-5.1) mmol/L Chloride 100 (98-107) mmol/L Carbon Dioxide 26 (21-32) mmol/L Anion Gap 10 (3-11) BUN 14 (6-23) mg/dl Creatinine 0.87 (0.6-1.4) mg/dl Est Cr Clr Drug Dosing Not Reportable eGFR 89.98 BUN/Creatinine Ratio 16.1 (10-20) Glucose 207 H (70-99(Fasting)) mg/dl Lactate 1.7 (0.4-2.0) mmol/L Calcium 9.1 (8.6-10.3) mg/dl Total Bilirubin 0.7 (0.2-1.0) mg/dl AST 16 (13-39) U/L ALT 16 (7-52) U/L Alkaline Phosphatase 85 (34-104) U/L Total Protein 7.8 (6.0-8.3) gm/dl Albumin 3.9 (3.4-5.0) gm/dl Globulin 3.9 (2.5-4.0) gm/dl Albumin/Globulin Ratio 1.0 (0.9-2) Adenovirus (PCR) Not Detected (NotDetected) B. pertussis DNA (PCR) Not Detected (NotDetected) B.parapertussis DNA PCR Not Detected (NotDetected) C. pneumoniae DNA (PCR) Not Detected (NotDetected) Coronavirus OC43 (PCR) Not Detected (NotDetected) Coronavirus HKU1 (PCR) Not Detected (NotDetected) Coronavirus 229E (PCR) Not Detected (NotDetected) SARS-CoV-2 (PCR) Not Detected (NotDetected) Coronavirus NL63 (PCR) Not Detected (NotDetected) Enterobacterales (PCR) DETECTED A (NotDetected) E. coli (PCR) DETECTED A (NotDetected) Human Metapneumovir PCR Not Detected (NotDetected) Influenza Type A (PCR) Not Detected (NotDetected) Influenza Type B (PCR) Not Detected (NotDetected) M. pneumoniae (PCR) Not Detected (NotDetected) Parainfluenza 1 (PCR) Not Detected (NotDetected) Parainfluenza 2 (PCR) Not Detected (NotDetected) Parainfluenza 3 (PCR) Not Detected (NotDetected) Parainfluenza 4 (PCR) Not Detected (NotDetected) RSV (PCR) Not Detected (NotDetected) Entero/Rhino (PCR) Not Detected (NotDetected) mcr-1 Colistin Res Gene PCR Not Detected (NotDetected) blaIMP Car res Gene PCR Not Detected (NotDetected) KPC-Carbap Res Gene PCR Not Detected (NotDetected) blaNDM Car Res Gene PCR Not Detected (NotDetected) OXA-48 Carbapenem Resis Gene (PCR) Not Detected (NotDetected) blaVIM Car Res Gene PCR Not Detected (NotDetected) CTX-M Gene Resistance (PCR) DETECTED A* (NotDetected) Bld Cult ID Panel PCR See PCR Comment (NotDetected) Administered Medications Aspirin (Aspirin 81 Mg Ectab) 81 mg PO Q48H NELIDA Stop: 03/22/25 08:59 Last Admin: 02/20/25 07:41 Dose: 81 mg Documented By: PHILLIP Calcium/Vitamin D (Calcium 600mg + Vit D 400 Iu Tab) 1 tab PO QAM NELIDA Stop: 03/22/25 08:59 Last Admin: 02/20/25 07:41 Dose: 1 tab Documented By: PHILLIP Cyanocobalamin (Cyanocobalamin (B-12) 500 Mcg Tablet) 1,000 mcg PO QPM NELIDA Stop: 03/21/25 20:59 Last Admin: 02/19/25 22:02 Dose: 1,000 mcg Documented By: [id number] Diphenhydramine HCl (Diphenhydramine Capsule 25 Mg Cap) 25 mg PO HS [facility] Stop: 03/21/25 20:59 Last Admin: 02/19/25 22:04 Dose: 25 mg Documented By: [id number] Finasteride (Finasteride 5 Mg Tab) 5 mg PO QPM NELIDA Stop: 03/21/25 20:59 Last Admin: 02/19/25 23:19 Dose: 5 mg Documented By: [id number] Heparin Sodium (Porcine) (Heparin Sod 5,000 Unit/0.5 Ml Vial) 5,000 units SQ Q8 NELIDA Stop: 03/21/25 13:59 Last Admin: 02/20/25 14:06 Dose: Not Given Documented By: Admin: 02/20/25 06:10 Dose: 5,000 units Documented By: [id number] Admin: 02/19/25 23:00 Dose: 5,000 units Documented By: [id number] Admin: 02/19/25 15:45 Dose: 5,000 units Documented By: DOMINICK Ertapenem (Invanz 1000mg) 1,000 mg in 10 mls @ 2 mls/min IV Q24H [facility] Stop: 03/05/25 22:59 Last Admin: 02/19/25 23:19 Dose: 2 mls/min Documented By: [id number] Insulin Aspart (Insulin Aspart Per Unit Charge) 0 units SC ACHS NELIDA Stop: 03/21/25 13:29 Last Admin: 02/20/25 12:53 Dose: 6 units Documented By: PHILLIP Co-signed By: HAN Admin: 02/20/25 08:41 Dose: 3 units Documented By: PHILLIP Co-signed By: ANNIKA Admin: 02/19/25 22:24 Dose: Not Given Documented By: Carlo Co-signed By: DYLAN Admin: 02/19/25 19:48 Dose: 4 units Documented By: Carlo Co-signed By: DYLAN Admin: 02/19/25 15:39 Dose: Not Given Documented By: DOMINICK Insulin Glargine (Lantus Per Unit Charge) [address] [facility]; Protocol Stop: 03/21/25 20:59 Last Admin: 02/19/25 22:25 Dose: Not Given Documented By: [id number] Ketorolac Tromethamine (Ketorolac Tromethamine 15 Mg/Ml Vial) 15 mg IV Q6H PRN PRN Reason: Pain Stop: 02/25/25 07:38 Last Admin: 02/20/25 08:44 Dose: 15 mg Documented By: PHILLIP Lactobacillus Acidophilus (Advanced Probiotic 625 Mg Capsule) 625 mg PO QAM [facility] Stop: 03/22/25 08:59 Last Admin: 02/20/25 07:41 Dose: 625 mg Documented By: PHILLIP Lisinopril (Lisinopril 2.5 Mg Tab) 2.[address] [facility] Stop: 03/21/25 20:59 Last Admin: 02/19/25 22:01 Dose: 2.5 mg Documented By: [id number] Miscellaneous (Mesalamine ~Order Awaiting Action) 1 each N/A QS [facility] Stop: 03/21/25 15:59 Last Admin: 02/20/25 07:23 Dose: Not Given Documented By: Admin: 02/20/25 01:37 Dose: Not Given Documented By: Carlo Admin: 02/19/25 17:02 Dose: Not Given Documented By: DOMINICK Pravastatin Sodium (Pravastatin Sod 20 Mg Tab) [address] [facility] Stop: 03/21/25 20:59 Last Admin: 02/19/25 22:03 Dose: 20 mg Documented By: [id number] Vitamin D (Cholecalciferol 25 Mcg (1000 Units) Tab) [address] [facility] Stop: 03/21/25 20:59 Last Admin: 02/19/25 22:02 Dose: 25 mcg Documented By: [id number] Vitamin E (Tocopheryl, Dl-Alpha 400 Units 180 Mg Cap) 180 mg PO [facility] Stop: 03/22/25 08:59 Last Admin: 02/20/25 07:41 Dose: 180 mg Documented By: PHILLIP Discontinued Medications Sodium Chloride (Nss) 1,000 mls @ 999 mls/hr IV .Q1H1M ONE Stop: 02/19/25 10:21 Last Infusion: 02/19/25 10:49 Dose: Infused Documented By: Admin: 02/19/25 09:38 Dose: 999 mls/hr Documented By: THEODORA Ceftriaxone Sodium (Rocephin) 2,000 mg in 50 mls @ 100 mls/hr IV NOW STA Stop: 02/19/25 11:26 Last Infusion: 02/19/25 12:08 Dose: Infused Documented By: Admin: 02/19/25 11:34 Dose: 100 mls/hr Documented By: THEODORA Sodium Chloride (Nss) 500 mls @ 999 mls/hr IV .Q31M ONE Stop: 02/19/25 14:25 Last Infusion: 02/19/25 18:04 Dose: Infused Documented By: Admin: 02/19/25 15:45 Dose: 999 mls/hr Documented By: DOMINICK Ketorolac Tromethamine (Ketorolac Tromethamine 15 Mg/Ml Vial) 15 mg IV NOW ONE Stop: 02/19/25 11:34 Last Admin: 02/19/25 11:40 Dose: 15 mg Documented By: THEODORA Discharge Plan Visit Data Chief Complaint: Weakness ED Provider: Becky Fritz Discharge Problem: UTI (urinary tract infection), Sepsis Patient Disposition: Admitted As Inpatient Condition: Serious Discharge Instructions Interventions: ED Discharge Assessment Last Done: 02/19/25 17:19 Discharge Problem: UTI (urinary tract infection) Qualifiers: Urinary tract infection type: acute cystitis
[2025-02-19 09:53] LABS: Alanine Aminotransferase 16 U/L (7-52); Albumin Globulin Ratio 1.0 (0.9-2); Alkaline Phosphatase 85 U/L (34-104); Anion Gap 10 (3-11); Bilirubin,Total 0.7 mg/dl (0.2-1.0); Blood Urea Nitrogen 14 mg/dl (6-23); Calcium 9.1 mg/dl (8.6-10.3); Carbon Dioxide 26 mmol/L (21-32); Chloride 100 mmol/L (98-107); Globulin 3.9 gm/dl (2.5-4.0); Glucose 207 mg/dl (70-99(Fasting)); Potassium 3.9 mmol/L (3.5-5.1); Sodium 136 mmol/L (136-145); Total Protein 7.8 gm/dl (6.0-8.3)
[2025-02-19 09:59] LABS: Immature Granulocytes # (auto) 0.07 K/uL (0.01-0.20); Immature Granulocytes % (auto) 0.8 %; Polychromasia 1+; Tear Drop Cells 1+
[2025-02-19 11:07] LABS: Chlamydia pneumoniae PCR Not Detected (NotDetected); Coronavirus 229E PCR Not Detected (NotDetected); Coronavirus CoV-2 (COVID19)PCR Not Detected (NotDetected); Coronavirus HKU1 PCR Not Detected (NotDetected); Coronavirus NL63 PCR Not Detected (NotDetected); Coronavirus OC43PCR Not Detected (NotDetected); Human Metapneumovirus PCR Not Detected (NotDetected); Parainfluenza Virus 1 PCR Not Detected (NotDetected); Parainfluenza Virus 2 PCR Not Detected (NotDetected); Parainfluenza Virus 3 PCR Not Detected (NotDetected); Parainfluenza Virus 4 PCR Not Detected (NotDetected); Respiratory Syncytial VirusPCR Not Detected (NotDetected); Rhinovirus/Enterovirus PCR Not Detected (NotDetected)
[2025-02-19] MEDS ORDERED: PHARMACY GLYCEMIC MGMT CONSULT PRN (11:27)
[2025-02-19] MEDS ORDERED: ACETAMINOPHEN 325 MG TAB PO PRN (11:30)
[2025-02-19] MEDS ORDERED: ONDANSETRON INJ 2 MG/ML 2 ML VIAL IV PRN (11:30)
[2025-02-19] MEDS: cefTRIAXone SODIUM 2,000 MG/50 ML BAG IV STA (11:34)
[2025-02-19] MEDS: KETOROLAC TROMETHAMINE 15 MG/ML VIAL IV ONE (11:40)
[2025-02-19 11:49] LABS: Appearance Urine Cloudy (Clear); Glucose Urine UA Negative (Negative)
[2025-02-19 11:56] LABS: Epithelial Cell Urine 0-2 /hpf (0-2)
[2025-02-19] MEDS ORDERED: Patient's HEIGHT &/or WEIGHT Needed STA (12:59)
--- NOTE | 2025-02-19 13:12 | History & Physical Report ---
Date of Service February 19, 2025 Assessment & Plan (1) Painful penis: Plan: -pt had cystoscopy, ureteronephroscopy, laser Lithotripsy and extraction of the right ureteral stone,and bilateral exchange of stent catheter on 02/[address] Cruz. -pain control -empiric tx with rocephin -urology consulted (2) BPH (benign prostatic hyperplasia): Plan: -flomax (3) Type 2 diabetes mellitus: Plan: -Pharm consult for glycemic management (4) HTN (hypertension): Plan: -lisinopril Plan Heparin SQ for DVT px History of Present Illness Chief Complaint: pain in penis Primary Care Provider: Kim Olivera MD Pt is a 74 y/o male with pmh of BPH, kidney stones, HTN, DM, who yesterday underwent cystoscopy, ureteronephroscopy, laser Lithotripsy and extraction of the right ureteral stone,and bilateral exchange of stent catheter. He was discharged home with a Hopper after the procedure. Pt started feeling pain in his penis afterwards which was not improving. In the ER patient was given a dose of rocephin and will be admitted for further evaluation by urology for patient's post procedure symptoms. Allergies Allergy/AdvReac Type Severity Reaction Status Date / Time ciprofloxacin [Cipro] Allergy Unknown PER PT Verified 02/18/25 05:50 "QUIT WORKING FOR UTI'S". sulfamethoxazole Allergy Unknown PER PT Verified 02/18/25 05:50 [From Bactrim] "QUIT WORKING FOR UTI'S". trimethoprim [From Bactrim] Allergy Unknown PER PT Verified 02/18/25 05:50 "QUIT WORKING FOR UTI'S". Home Medications Medication Instructions Recorded Confirmed Type blood sugar diagnostic 08/23/21 02/04/25 History lancets 08/23/21 02/04/25 History lisinopril 2.5 mg tablet 2.5 mg PO HS 08/23/21 02/19/25 History mecobalamin (vitamin B12) 1,000 1,000 mcg PO QPM 08/23/21 02/19/25 History mcg chewable tablet pravastatin 20 mg tablet 20 mg PO HS 08/23/21 02/19/25 History aspirin 81 mg chewable tablet 81 mg PO Q OTHER DAY 11/07/24 02/19/25 History (Aspirin Childrens) calcium 500 mg (as 1 tab PO QAM 11/07/24 02/19/25 History carbonate)-vitamin D3 10 mcg (400 unit) tablet (Calcium 500 + D) mesalamine 1.2 gram tablet,delayed 2.4 g PO BID 11/07/24 02/19/25 History release metformin 500 mg tablet,extended 1,000 mg PO BID 11/07/24 02/19/25 History release 24 hr semaglutide 0.25 mg or 0.5 mg (2 0.5 mg subcut WK 11/07/24 02/19/25 History mg/3 mL) subcutaneous pen injector (Ozempic) sildenafil 100 mg tablet 100 mg PO DAILY PRN sexual 11/14/24 02/19/25 Rx activity #30 tabs inulin 2 gram chewable tablet 4 g PO QAM 01/13/25 02/19/25 History (Prebiotic Fiber) bisacodyl 10 mg rectal suppository 10 mg GA DAILY PRN Constipation 02/04/25 02/19/25 History finasteride 5 mg tablet 5 mg PO QPM #90 tabs 02/04/25 02/19/25 Rx Lactobacillus acidophilus 10 10,000 mmu cells PO QAM 02/11/25 02/19/25 History billion cell capsule (Probiotic) acetaminophen 500 mg tablet 1,000 mg PO TID PRN Pain 02/11/25 02/19/25 History (Tylenol Extra Strength) cholecalciferol (vitamin D3) 25 25 mcg PO HS 02/11/25 02/19/25 History mcg (1,000 unit) tablet (Vitamin D3) doxylamine succinate 25 mg tablet 25 mg PO HS 02/11/25 02/19/25 History vitamin E succinate 268 mg (400 268 mg PO QAM 02/11/25 02/19/25 History unit) tablet amoxicillin 500 mg-potassium 1 tab PO BID #10 tabs 02/18/25 02/19/25 Rx clavulanate 125 mg tablet Past Med/Surg History Problem List (Updated 02/19/25 @ 13:16 by Scooter Mccarthy MD) HTN (hypertension) Painful penis Hydronephrosis (Acute) Ureterolithiasis (Acute) Complicated urinary tract infection (Acute) Hydroureteronephrosis Bilateral ureteral calculi Tinnitus of right ear Erectile dysfunction BPH (benign prostatic hyperplasia) Arthritis Kidney stones Epididymal cyst Medical History BPH (benign prostatic hyperplasia) Closed hip fracture 11/07/24, healed on its own, no surgical intervention Diabetes mellitus, type 2 NIDDM Generalized weakness since sepsis early January 2025. has in-home physical therapy and home exercises Glaucoma History of recent hospitalization at [facility] end of December 2024 and early January 2025 - complicated UTI + sepsis. Hx of bronchitis remote history - no recent issues Hx of colonic polyps Hx of sepsis end of December 2024 treated at [facility] emergency room and inpatient. 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) Family History Brother Prostate cancer both brothers Diabetes Heart disease Kidney stones Mother Breast cancer Family history of cervical cancer Father Diabetes Other No family history of adverse response to anesthesia Social History Smoking Status: Never smoker Second Hand Exposure: No; Do You Dip or Chew Tobacco: No; Hx Alcohol Use: Yes Alcohol type: beer Hx Substance Use: No Preferred Language: Frisian Communication Ability: Effective Spanish Speaking Nanny Required: No Beliefs That Will Affect Care: None marital status: Current Living Situation: Spouse current occupational status: retired Feels Safe at Home: Yes Assistive Devices: Walker and Wheelchair Review of Systems Review of Systems: CONST: Negative for fever, body aches and chills. HENT: Negative for neck pain/stiffness, headache, congestion, sore throat, swelling. EYES: Negative for discharge/pain or vision changes. RESP: Negative for cough/hemoptysis and shortness of breath. CV: Negative chest pain, difficulty breathing, palpitations. ABD: Negative pain, nausea, vomiting. : Negative increase frequency, dysuria, blood in urine or stool. MUSC: Negative for muscle aches, edema. SKIN: Negative rash, lesions/sores. NEURO: Negative headache, dizziness, weakness. Physical Exam Physical Exam: GENERAL APPEARANCE NAD, activity normal for age, well developed/ well nourished, no cyanosis, pallor, or diaphoresis. EYES lids/conjunctiva normal. EARS/NOSE/THROAT Mucous membranes moist, nares normal, lips/teeth normal uvula midline without oral pharyngeal erythema, exudate or swelling TMs normal bilaterally. No lymphangitis/lymphedema. HEAD/NECK normocephalic atraumatic, no facial trauma, neck is supple. RESPIRATORY respiratory effort normal, speaks in full sentences, no tripod position, no accessory muscle use. Lungs clear to auscultation without rhonchi, wheezes, rales CARDIAC Regular rate and rhythm, no edema. ABDOMINAL Soft, ND/NT. No evidence of fluid wave. No pulsatile masses on exam, rebound tenderness, Mckeon sign or pain over Mcburney's point. MUSCLES/EXTREMITIES No abnormal range of motion, no swelling. SKIN Warm, pink and dry. No rashes, dermatoses, petechiae or lesions. NEUROLOGICAL Speech is clear and appropriate. Normal level of consciousness. Gait and coordination are normal. 5/5 strength in all extremities. PSYCH Normal mood and affect. Judgement/competence is appropriate Results & Data Results & Data Vital Signs (Past 12 Hours) Vital Signs Temp Pulse Resp BP Pulse Ox O2 Del Method O2 Flow Rate 02/19/25 09:46 96 Nasal Cannula 3 02/19/25 09:14 123 H 02/19/25 09:10 89 L Room Air 02/19/25 09:10 37.7 C H 121 H 18 122/73 89 L Room Air PG Care Time/CCT Total # of Minutes Spent Total Time Spent with Patient: Total time spent is greater than 50% in coordination of care (as documented) at patient's floor/unit and/or counseling patient: Coding Level of Care Code 44523 INT INP/OBS CARE 2/55MIN Diagnoses Painful penis N48.89 BPH (benign prostatic hyperplasia) N40.0 Type 2 diabetes mellitus E11.9 HTN (hypertension) I10
[2025-02-19] MEDS ORDERED: CARBOHYDRATES FOR HYPOGLYCEMIA PO PRN (13:30)
[2025-02-19] MEDS ORDERED: DEXTROSE 50% 50 ML SYRINGE IV PRN (13:30)
[2025-02-19] MEDS ORDERED: GLUCOSE 10 TAB/TUBE PO PRN (13:30)
[2025-02-19] MEDS ORDERED: GLUCAGON FOR INJ 1 MG VIAL SQ PRN (13:30)
[2025-02-19] MEDS ORDERED: GLUCOSE 40% GEL 15 GM TUBE PO PRN (13:30)
--- NOTE | 2025-02-19 13:51 | Urology Consultation ---
Date of Consultation February 19, 2025 Assessment & Plan (1) Painful penis: 74 year old male POD #1 s/p cystoscopy, bilateral ureteronephroscopy, laser lithotripsy and extraction of right ureteral stone, exchange of bilateral ureteral stents and Rezum who is admitted for penile pain and concern for infection. Patient currently afebrile, tachycardic Labs reviewedcreatinine 0.87, no leukocytosis Urinalysis may suggest infection or contamination from presence of stent Urine and blood cultures are pending Continue with broad-spectrum antibiotics and narrow per sensitivity data available Maintain Hopper catheter Continue supportive care and medical management per hospital medicine service Penile pain is likely secondary to ureteral stents and/or Hopper catheter Recommend pain management with Tamsulosin, Pyridium, and consider Ketorolac Can also consider oxybutynin as needed for spasms No acute intervention at this time will follow History of Present Illness Reason for Consultation: Post lithotripsy and stent now with pain Attending Physician: Dr. Scooter Mccarthy History of Present Illness This is a 74-year-old male who follows with urology for BPH and nephrolithiasis. He was recently hospitalized for bilateral ureteral stones and UTI/sepsis/bacteremia and underwent bilateral ureteral stent placement on 01/28/2025. He underwent definitive treatment with cystoscopy, bilateral ureteronephroscopy, laser lithotripsy and extraction of right ureteral stone, exchange of bilateral ureteral stents and Rezum yesterday on 02/18/2025. He was discharged to home after procedure with Hopper catheter in place. He presented to the emergency department today for evaluation of weakness, penile pain and rigors. On arrival to the ED, he was afebrile, tachycardic, and hypoxic. Lab work showed white count of 8.71, hemoglobin 13.5, creatinine 0.87. Urinalysis showed 3+ protein, 3+ blood, trace LE, >20 RBC, >50 WBC, and 1+ rajesh teria. Respiratory PCR panel negative. He was admitted for post operative pain. Urology is consulted for post lithotripsy and stent now with pain. Patient seen and examined in the emergency department. He is awake and resting in litter. He reports experiencing penile pain at home after procedure as well as weakness and rigors. He reports improvement in pain since arrival. No fever or chills at present. Hopper intact with slightly blood-tinged urine. No flank or abdominal pain. No nausea or vomiting. Allergies Allergy/AdvReac Type Severity Reaction Status Date / Time ciprofloxacin [Cipro] Allergy Unknown PER PT Verified 02/18/25 05:50 "QUIT WORKING FOR UTI'S". sulfamethoxazole Allergy Unknown PER PT Verified 02/18/25 05:50 [From Bactrim] "QUIT WORKING FOR UTI'S". trimethoprim [From Bactrim] Allergy Unknown PER PT Verified 02/18/25 05:50 "QUIT WORKING FOR UTI'S". Home Medications Medication Instructions Recorded Confirmed Type blood sugar diagnostic 08/23/21 02/04/25 History lancets 08/23/21 02/04/25 History lisinopril 2.5 mg tablet 2.5 mg PO HS 08/23/21 02/19/25 History mecobalamin (vitamin B12) 1,000 1,000 mcg PO QPM 08/23/21 02/19/25 History mcg chewable tablet pravastatin 20 mg tablet 20 mg PO HS 08/23/21 02/19/25 History aspirin 81 mg chewable tablet 81 mg PO Q OTHER DAY 11/07/24 02/19/25 History (Aspirin Childrens) calcium 500 mg (as 1 tab PO QAM 11/07/24 02/19/25 History carbonate)-vitamin D3 10 mcg (400 unit) tablet (Calcium 500 + D) mesalamine 1.2 gram tablet,delayed 2.4 g PO BID 11/07/24 02/19/25 History release metformin 500 mg tablet,extended 1,000 mg PO BID 11/07/24 02/19/25 History release 24 hr semaglutide 0.25 mg or 0.5 mg (2 0.5 mg subcut WK 11/07/24 02/19/25 History mg/3 mL) subcutaneous pen injector (Ozempic) sildenafil 100 mg tablet 100 mg PO DAILY PRN sexual 11/14/24 02/19/25 Rx activity #30 tabs inulin 2 gram chewable tablet 4 g PO QAM 01/13/25 02/19/25 History (Prebiotic Fiber) bisacodyl 10 mg rectal suppository 10 mg [place] DAILY PRN Constipation 02/04/25 02/19/25 History finasteride 5 mg tablet 5 mg PO QPM #90 tabs 07/15/25 07/30/25 Rx Lactobacillus acidophilus 10 10,000 mmu cells PO QAM 02/11/25 02/19/25 History billion cell capsule (Probiotic) acetaminophen 500 mg tablet 1,000 mg PO TID PRN Pain 02/11/25 02/19/25 History (Tylenol Extra Strength) cholecalciferol (vitamin D3) 25 25 mcg PO HS 02/11/25 02/19/25 History mcg (1,000 unit) tablet (Vitamin D3) doxylamine succinate 25 mg tablet 25 mg PO HS 02/11/25 02/19/25 History vitamin E succinate 268 mg (400 268 mg PO QAM 02/11/25 02/19/25 History unit) tablet amoxicillin 500 mg-potassium 1 tab PO BID #10 tabs 02/18/25 02/19/25 Rx clavulanate 125 mg tablet Patient History Medical History Type 2 diabetes mellitus Generalized weakness since sepsis early January 2025. has in-home physical therapy and home exercises History of recent hospitalization at [facility] end of December 2024 and early January 2025 - complicated UTI + sepsis. Hx of colonic polyps Ulcerative colitis Indwelling Hopper catheter present Hx of sepsis end of December 2024 treated at [facility] emergency room and inpatient. 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) History of right hip replacement ~1999 History of back surgery L4 discectomy Hx of appendectomy Family History Brother Prostate cancer both brothers Diabetes Heart disease Kidney stones Mother Breast cancer Family history of cervical cancer Father Diabetes Other No family history of adverse response to anesthesia Social History Smoking Status: Never smoker Second Hand Exposure: No; Do You Dip or Chew Tobacco: No; Hx Alcohol Use: Yes Alcohol type: beer Hx Substance Use: No Preferred Language: Kazakh Communication Ability: Effective 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: No Beliefs That Will Affect Care: None marital status: Current Living Situation: Spouse current occupational status: retired Feels Safe at Home: Yes Assistive Devices: Walker and Wheelchair Review of Systems Constitutional: as per Subjective / HPI Genitourinary: + as per Subjective / HPI Physical Exam Constitutional: no acute distress Respiratory: no respiratory distress and no labored breathing supplemental oxygen Gastrointestinal (Abdomen): Inspection/Auscultation: abdomen normal to inspec tion Musculoskeletal: Head/Neck/Chest: normocephalic Neurologic: moves all extremities and awake Psychiatric: Orientation: alert and oriented x 3 Genitourinary: Hopper intact Results & Data Vital Signs (Past 12 Hours) Vital Signs Temp Pulse Pulse Resp BP BP Pulse Ox 02/19/25 13:13 107 H 18 102/68 93 02/19/25 09:46 96 02/19/25 09:14 123 H 02/19/25 09:10 89 L 02/19/25 09:10 37.7 C H 121 H 18 122/73 89 L O2 Del Method O2 Flow Rate 02/19/25 13:13 Nasal Cannula 3 02/19/25 09:46 Nasal Cannula 3 02/19/25 09:14 02/19/25 09:10 Room Air 02/19/25 09:10 Room Air PG Care Time/CCT Total # of Minutes Spent Total Time Spent with Patient: Total time spent is greater than 50% in coordination of care (as documented) at patient's floor/unit and/or counseling patient: Coding Level of Care Code 54164 INT INP/OBS CARE 2/55MIN Diagnoses Painful penis N48.89
[2025-02-19] MEDS ORDERED: MoRPHine SULFATE 2 MG/ML CARP IV PRN (13:55)
--- NOTE | 2025-02-19 14:25 | Pharmacy Report ---
Pharmacy Glycemic Short Note 2 - Date of Service February 19, 2025 - Glycemic Short BSG Results (Last 24 hours): 02/19/25 09:07 Glucose 207 H OUTPATIENT ANTIDIABETIC REGIMEN: * metformin 1 g PO BIDM * Ozempic 0.5 mg SC weekly (Sundays) HbA1c: 7.1% (11/08/24) ASSESSMENT: * WK is a 74 year old male who presents with penile pain following urologic procedure w/ stone extraction, REZUM, and stent exchange * Blood sugar on presentation is 207 mg/dL w/ reasonably controlled HbA1c from October * Will order low-dose basal scale this evening and weight-based Novolog * Diet is ordered. Urology consulted, no plan for intervention at this time. PLAN FOR INPATIENT GLYCEMIC CONTROL: * Hold outpatient oral diabetes medications * Basal insulin * Lantus 0-5-10 units SC HS * Bolus insulin * NovoLog per scale ACHS or Q6hrs while NPO * Goal Range: Low 110 mg/dL - High 140 mg/dL * Correction Factor: 25 mg/dL/unit * Nutritional / Prandial insulin per carb ratio of 1 unit per 9 grams CHO consumed
[2025-02-19] MEDS: INSULIN ASPART PER UNIT CHARGE SC SCH (15:39)
[2025-02-19] MEDS: SODIUM CHLORIDE 0.9% 500 ML IV ONE (15:45)
[2025-02-19] MEDS: HEPARIN SOD 5,000 UNIT/0.5 ML VIAL SQ SCH (15:45)
[2025-02-19 22:02] LABS: A calco-baum cmplx NotReported Not Detected (NotDetected); Bact fragilis Not Reported Not Detected (NotDetected); Blood Culture Id Panel See PCR Comment (NotDetected); C auris Not Reported Not Detected (NotDetected); Calbicans Not Reported Not Detected (NotDetected); Candida glabrata Not Reported Not Detected (NotDetected); Candida krusei Not Reported Not Detected (NotDetected); Cneoformans/gatti Not Reported Not Detected (NotDetected); Cparapsilosis Not Reported Not Detected (NotDetected); Ctropicalis Not Reported Not Detected (NotDetected); E cloacae compx Not Reported Not Detected (NotDetected); Efaecalis Not Reported Not Detected (NotDetected); Efaecium Not Reported Not Detected (NotDetected); Enterobacterales Not Reported DETECTED (NotDetected); Escherichia coli Not Reported DETECTED (NotDetected); H influenzae Not Reported Not Detected (NotDetected); IMP Resistant Gene Not Detected (NotDetected); K aerogenes Not Reported Not Detected (NotDetected); KPC Resistant Gene Not Detected (NotDetected); Koxytoca Not Reported Not Detected (NotDetected); Kpneumoniae grp Not Reported Not Detected (NotDetected); Lmonocyt Not Reported Not Detected (NotDetected); N meningitidis Not Reported Not Detected (NotDetected); NDM Resistant Gene Not Detected (NotDetected); OXA 48 Like Resistant Gene Not Detected (NotDetected); P aeruginosa Not Reported Not Detected (NotDetected); Proteus spp Not Reported Not Detected (NotDetected); Salmonella spp Not Reported Not Detected (NotDetected); Staph lugdunensis Not Reported Not Detected (NotDetected); Staph spp. Not Reported Not Detected (NotDetected); Staphaureus Not Reported Not Detected (NotDetected); Staphepi Not Reported Not Detected (NotDetected); Stenmaltophilia Not Reported Not Detected (NotDetected); Strep agal(GrpB) Not Reported Not Detected (NotDetected); Strep pneum Not Reported Not Detected (NotDetected); Strep pyog (GrpA) Not Reported Not Detected (NotDetected); Strep spp Not Reported Not Detected (NotDetected); VIM Resistant Gene Not Detected (NotDetected); mcr-1 Colistin Resistant Gene Not Detected (NotDetected)
[2025-02-19] MEDS: CHOLECALCIFEROL 25 MCG (1000 UNITS) TAB PO SCH (22:02)
[2025-02-19] MEDS: CYANOCOBALAMIN (B-12) 500 MCG TABLET PO SCH (22:02)
[2025-02-19] MEDS: PRAVASTATIN SOD 20 MG TAB PO SCH (22:03)
[2025-02-19] MEDS: diphenhydrAMINE Capsule 25 MG CAP PO SCH (22:04)
[2025-02-19 22:06] LABS: CTX-M Resistant Gene DETECTED (NotDetected); Enterobacterales DETECTED (NotDetected)
[2025-02-19] MEDS: LANTUS PER UNIT CHARGE SC SCH (22:25)
[2025-02-19] MEDS: FINASTERIDE 5 MG TAB PO SCH (23:19)
[2025-02-19] MEDS: ERTAPENEM 1000MG 1,000 MG/10 ML SYR IV SCH (23:19)
[2025-02-20 06:15] LABS: Hematocrit (blood only) 33.4 % (42.0-52.0); Hemoglobin 11.0 g/dl (14.0-18.0); Mean Corpuscular Hemoglobin 31.4 pg (25.0-34.0); Mean Corpuscular Volume 95.4 fL (80.0-100.0); Platelet Count 164 K/uL (130-400); RDW Standard Deviation 47.7 fL (36.4-46.3); Red Blood Count 3.50 M/uL (4.70-6.10); White Blood Count 7.28 K/ul (4.8-10.8)
[2025-02-20 06:30] LABS: Anion Gap 10.0 (3-11); Blood Urea Nitrogen 17.0 mg/dl (6-23); Calcium 8.5 mg/dl (8.6-10.3); Carbon Dioxide 24.0 mmol/L (21-32); Chloride 103.0 mmol/L (98-107); Creatinine Clr Calc Pharmacy 106.9 ml/min; Glucose 130.0 mg/dl (70-99(Fasting)); Potassium 3.7 mmol/L (3.5-5.1); Sodium 137.0 mmol/L (136-145)
[2025-02-20 07:19] LABS: Hemoglobin A1C 6.4 % (4.5-5.6)
[2025-02-20] MEDS: CALCIUM 600MG + VIT D 400 IU TAB PO SCH (07:41)
[2025-02-20] MEDS: TOCOPHERYL, DL-ALPHA 400 UNITS 180 MG CAP PO SCH (07:41)
[2025-02-20] MEDS: ASPIRIN 81 MG ECTAB PO SCH (07:41)
[2025-02-20] MEDS: ADVANCED PROBIOTIC 625 MG CAPSULE PO SCH (07:41)
--- NOTE | 2025-02-20 08:09 | Urology Progress Note ---
Date of Service February 20, 2025 Assessment & Plan (1) Painful penis: (2) Complicated urinary tract infection: Plan 74 year old male recently s/p cystoscopy, bilateral ureteronephroscopy, laser lithotripsy and extraction of right ureteral stone, exchange of bilateral ureteral stents and Rezum admitted for penile pain and concern for infection. Patient currently afebrile, hemodynamically stable Labs reviewedcreatinine 0.75, WBC 7.28 Urine culture pending Blood cultures prelim with gram negative bacilli PCR showing E. coli and Enterobacterales, resistance gene detected Ceftriaxone was switched to Ertapenem Continue with broad-spectrum antibiotics and narrow per sensitivity data available Maintain Hopper catheter Continue supportive care and medical management per hospital medicine service Penile pain is likely secondary to ureteral stents and/or Hopper catheter Recommend addition of Tamsulosin, Pyridium, and consider Ketorolac for pain management Can also consider oxybutynin as needed for spasms No acute intervention at this time will follow Admission and Anticipated Discharge Date Admission Date: February 19, 2025 Subjective Patient subjectively feeling better this morning. No fever or chills overnight. Continues to have penile discomfort. Hopper intact. No nausea or vomiting. Review of Systems Constitutional: as per Subjective / HPI Genitourinary: + as per Subjective / HPI Physical Exam Constitutional: no acute distress Respiratory: normal respiratory effort; no respiratory distress and no labored breathing Gastrointestinal (Abdomen): Inspection/Auscultation: abdomen normal to inspection Musculoskeletal: Head/Neck/Chest: normocephalic Neurologic: moves all extremities and awake Psychiatric: Orientation: alert and oriented x 3 Genitourinary: Hopper draining walsh red urine Results & Data Vital Signs (Past 12 Hours) Vital Signs Temp Pulse Resp BP Pulse Ox O2 Del Method 02/20/25 07:28 36.9 C 84 18 112/68 93 Room Air 02/19/25 20:09 37.1 C 87 16 124/66 93 Room Air PG Care Time/CCT Total # of Minutes Spent Total Time Spent with Patient: Total time spent is greater than 50% in coordination of care (as documented) at patient's floor/unit and/or counseling patient: Coding Level of Care Code 94187 SUB INP/OBS CARE 08/17MIN Diagnoses Painful penis N48.89 Complicated urinary tract infection N39.0
[2025-02-20] MEDS: KETOROLAC TROMETHAMINE 15 MG/ML VIAL IV PRN (08:44)
[2025-02-20] MEDS ORDERED: INULIN 2 GM PO SCH (09:00)
--- NOTE | 2025-02-20 09:30 | Hospitalist Progress Note ---
Date of Service February 20, 2025 Assessment & Plan (1) Painful penis: Plan: -pt had cystoscopy, ureteroendoscopy, laser Lithotripsy and extraction of the right ureteral stone,and bilateral exchange of stent catheter on 02/[address] Cruz. -pain control -urine culture + from gram negative bacilli -on ertapenem -urology consult appreciated -no intervention at this time -pain control and discharge once bacterial sensitivities return. -plan for 02/21 (2) BPH (benign prostatic hyperplasia): Plan: -flomax (3) Type 2 diabetes mellitus: Plan: -Pharm consult for glycemic management (4) HTN (hypertension): Plan: -lisinopril Plan Heparin SQ for DVT px Admission and Anticipated Discharge Date Admission Date: February 19, 2025 Subjective Pt feeling better this am. No events overnight. Review of Systems Review of Systems: CONST: Negative for fever, body aches and chills. HENT: Negative for neck pain/stiffness, headache, congestion, sore throat, swelling. EYES: Negative for discharge/pain or vision changes. RESP: Negative for cough/hemoptysis and shortness of breath. CV: Negative chest pain, difficulty breathing, palpitations. ABD: Negative pain, nausea, vomiting. : Negative increase frequency, dysuria, blood in urine or stool. MUSC: Negative for muscle aches, edema. SKIN: Negative rash, lesions/sores. NEURO: Negative headache, dizziness, weakness. Physical Exam Physical Exam: GENERAL APPEARANCE NAD, activity normal for age, well developed/ well nourished, no cyanosis, pallor, or diaphoresis. EYES lids/conjunctiva normal. EARS/NOSE/THROAT Mucous membranes moist, nares normal, lips/teeth normal uvula midline without oral pharyngeal erythema, exudate or swelling TMs normal bilaterally. No lymphangitis/lymphedema. HEAD/NECK normocephalic atraumatic, no facial trauma, neck is supple. RESPIRATORY respiratory effort normal, speaks in full sentences, no tripod position, no accessory muscle use. Lungs clear to auscultation without rhonchi, wheezes, rales CARDIAC Regular rate and rhythm, no edema. ABDOMINAL Soft, ND/NT. No evidence of fluid wave. No pulsatile masses on exam, rebound tenderness, Mckeon sign or pain over Mcburney's point. MUSCLES/EXTREMITIES No abnormal range of motion, no swelling. SKIN Warm, pink and dry. No rashes, dermatoses, petechiae or lesions. NEUROLOGICAL Speech is clear and appropriate. Normal level of consciousness. Gait and coordination are normal. 5/5 strength in all extremities. PSYCH Normal mood and affect. Judgement/competence is appropriate Results & Data Results & Data Vital Signs (Past 12 Hours) Vital Signs Temp Pulse Resp BP Pulse Ox O2 Del Method 02/20/25 07:28 36.9 C 84 18 112/68 93 Room Air PG Care Time/CCT Total # of Minutes Spent Total Time Spent with Patient: Total time spent is greater than 50% in coordination of care (as documented) at patient's floor/unit and/or counseling patient: Coding Level of Care Code 72285 SUB INP/OBS CARE 2/35MIN Diagnoses Painful penis N48.89 BPH (benign prostatic hyperplasia) N40.0 Type 2 diabetes mellitus E11.9 HTN (hypertension) I10
[2025-02-20] MEDS ORDERED: cefTRIAXone SODIUM 2,000 MG/50 ML BAG IV SCH (11:00)
--- NOTE | 2025-02-20 12:24 | Infectious Disease Consult ---
Date of Consultation February 20, 2025 Assessment & Plan (1) E coli bacteremia: (2) Complicated urinary tract infection: Plan Problems: #ESBL E coli bacteremia #Bilateral ureteral stones s/p bilateral ureteral stent placement (01/28/25) and laser lithotripsy and extraction of R ureteral stone with exchange of bilateral ureteral stents and Rezum (02/18/25) #Proteus mirabilis bacteremia (01/28/25): s/p ceftriaxone --> Augmentin to complete 2 week course Micro: 02/19 UCx: NG 02/19 BCx x2: ESBL E coli in 2/4 bottles 01/28 BCx x2: Proteus mirabilis in 4/4 bottles (S amox/clav, ceftriaxone, pip/tazo. I amp/sul. R amp, cefaz, cipro, levo, TMP/SMX) Abx: Ertapenem 02/19 - present Ceftriaxone 02/19 74 yo M with T2DM, UC, BPH, nephrolithiasis, recent admission 01/28-01/31 with bilateral ureteral stones s/p bilateral ureteral stent placement (01/28/25) c/b Proteus mirabilis bacteremia (s/p ceftriaxone --> Augmentin x 2 weeks course) followed by laser lithotripsy and removal of ureteral stones, bilateral ureteral stent exchange, and Rezum (02/18/25) discharged home with a kan post procedure who presented on 02/19 reporting weakness, rigors, persistent penile pain, found to have ESBL E coli bacteremia. On presentation, T 37.7, HR 121, 89% on room air placed on 3 L NC. Labs showed no leukocytosis, UA with > 50 WBCs. CXR with findings of CHF. Pt was given ceftriaxone. Urology was consulted and recommended no acute intervention at this time. BCx growing ESBL E coli. Ceftriaxone changed to ertapenem. ESBL E coli bacteremia is likely from urinary source given urologic procedure the day prior. Recommendations: - Continue ertapenem 1 g IV q24h - Follow-up E coli sensitivities Will continue to follow Consultation Information This patient recommendation is based on a telemedicine consult request which was completed asynchronously through chart review and information provided by the primary physician. The patient was not seen or examined today. The evaluation is consultative in nature and all patient care and treatment decisions can either be accepted or rejected by the patient's primary hospital-based treating physician using their own independent medical judgment for their patient. Instruction Dean contact information: Please call [facility] Call Center . (Phone Number For Physician Use Only) Time Spent Reviewing Chart: 31+ minutes History of Present Illness Attending Physician: Scooter Mccarthy MD History of Present Illness 74 yo M with T2DM, UC, BPH, nephrolithiasis, recent admission 01/28-01/31 with bilateral ureteral stones s/p bilateral ureteral stent placement (01/28/25) c/b Proteus mirabilis bacteremia (s/p ceftriaxone --> Augmentin x 2 weeks course) followed by laser lithotripsy and removal of ureteral stones, bilateral ureteral stent exchange, and Rezum (02/18/25) discharged home with a kan post procedure who presented on 02/19 reporting weakness, rigors, persistent penile pain. On presentation, T 37.7, HR 121, 89% on room air placed on 3 L NC. Labs showed no leukocytosis, UA with > 50 WBCs. CXR with findings of CHF. Pt was given ceftriaxone. Urology was consulted and recommended no acute intervention at this time. BCx growing ESBL E coli. Ceftriaxone changed to ertapenem. Allergies Allergy/AdvReac Type Severity Reaction Status Date / Time ciprofloxacin [Cipro] Allergy Unknown PER PT Verified 02/18/25 05:50 "QUIT WORKING FOR UTI'S". sulfamethoxazole Allergy Unknown PER PT Verified 02/18/25 05:50 [From Bactrim] "QUIT WORKING FOR UTI'S". trimethoprim [From Bactrim] Allergy Unknown PER PT Verified 02/18/25 05:50 "QUIT WORKING FOR UTI'S". Home Medications Medication Instructions Recorded Confirmed Type blood sugar diagnostic 08/23/21 02/04/25 History lancets 08/23/21 02/04/25 History lisinopril 2.5 mg tablet 2.5 mg PO HS 08/23/21 02/19/25 History mecobalamin (vitamin B12) 1,000 1,000 mcg PO QPM 08/23/21 02/19/25 History mcg chewable tablet pravastatin 20 mg tablet 20 mg PO HS 08/23/21 02/19/25 History aspirin 81 mg chewable tablet 81 mg PO Q OTHER DAY 11/07/24 02/19/25 History (Aspirin Childrens) calcium 500 mg (as 1 tab PO QAM 11/07/24 02/19/25 History carbonate)-vitamin D3 10 mcg (400 unit) tablet (Calcium 500 + D) mesalamine 1.2 gram tablet,delayed 2.4 g PO BID 11/07/24 02/19/25 History release metformin 500 mg tablet,extended 1,000 mg PO BID 11/07/24 02/19/25 History release 24 hr semaglutide 0.25 mg or 0.5 mg (2 0.5 mg subcut WK 11/07/24 02/19/25 History mg/3 mL) subcutaneous pen injector (Ozempic) sildenafil 100 mg tablet 100 mg PO DAILY PRN sexual 11/14/24 02/19/25 Rx activity #30 tabs inulin 2 gram chewable tablet 4 g PO QAM 01/13/25 02/19/25 History (Prebiotic Fiber) bisacodyl 10 mg rectal suppository 10 mg OK DAILY PRN Constipation 02/04/25 02/19/25 History finasteride 5 mg tablet 5 mg PO QPM #90 tabs 02/04/25 02/19/25 Rx Lactobacillus acidophilus 10 10,000 mmu cells PO QAM 02/11/25 02/19/25 History billion cell capsule (Probiotic) acetaminophen 500 mg tablet 1,000 mg PO TID PRN Pain 02/11/25 02/19/25 History (Tylenol Extra Strength) cholecalciferol (vitamin D3) 25 25 mcg PO HS 02/11/25 02/19/25 History mcg (1,000 unit) tablet (Vitamin D3) doxylamine succinate 25 mg tablet 25 mg PO HS 02/11/25 02/19/25 History vitamin E succinate 268 mg (400 268 mg PO QAM 02/11/25 02/19/25 History unit) tablet amoxicillin 500 mg-potassium 1 tab PO BID #10 tabs 02/18/25 02/19/25 Rx clavulanate 125 mg tablet Patient History Medical History Type 2 diabetes mellitus Generalized weakness since sepsis early January 2025. has in-home physical therapy and home exercises History of recent hospitalization at [facility] end of December 2024 and early January 2025 - complicated UTI + sepsis. Hx of colonic polyps Ulcerative colitis Indwelling Kan catheter present Hx of sepsis end of December 2024 treated at [facility] emergency room and inpatient. 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) History of right hip replacement ~1999 History of back surgery L4 discectomy Hx of appendectomy Family History Brother Prostate cancer both brothers Diabetes Heart disease Kidney stones Mother Breast cancer Family history of cervical cancer Father Diabetes Other No family history of adverse response to anesthesia Social History Smoking Status: Never smoker Second Hand Exposure: No; Do You Dip or Chew Tobacco: No; Hx Alcohol Use: Yes Alcohol type: beer Hx Substance Use: No Preferred Language: [place] Communication Ability: Effective 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: No Beliefs That Will Affect Care: None marital status: Current Living Situation: Spouse current occupational status: retired Feels Safe at Home: Yes Assistive Devices: Cane, Glasses, Walker and Wheelchair Review of System Pt was not seen Physical Exam Physical Exam: Pt was not seen Results & Data Vital Signs (Past 12 Hours) Vital Signs Temp Pulse Resp BP Pulse Ox O2 Del Method 02/20/25 07:28 36.9 C 84 18 112/68 93 Room Air Laboratory Results Short CBC 02/20/25 Range/Units 05:28 WBC 7.28 (4.8-10.8) K/ul Hgb 11.0 L (14.0-18.0) g/dl Hct 33.4 L (42.0-52.0) % Plt Count 164 (130-400) K/uL BMP 02/20/25 05:28 Sodium 137 Potassium 3.7 Chloride 103 Carbon Dioxide 24 BUN 17 Creatinine 0.75 Glucose 130 H Calcium 8.5 L Medications Administered Current Inpatient Medications Acetaminophen (Acetaminophen 500 Mg Tab) 1,000 mg PO TID PRN PRN Reason: Pain Stop: 03/21/25 11:24 Aspirin (Aspirin 81 Mg Ectab) 81 mg PO Q48H [facility] Stop: 03/22/25 08:59 Last Admin: 02/20/25 07:41 Dose: 81 mg Bisacodyl (Bisacodyl 10 Mg Supp) 10 mg OK DAILY PRN PRN Reason: Constipation Stop: 03/21/25 11:24 Calcium/Vitamin D (Calcium 600mg + Vit D 400 Iu Tab) 1 tab PO QAM [facility] Stop: 03/22/25 08:59 Last Admin: 02/20/25 07:41 Dose: 1 tab Cyanocobalamin (Cyanocobalamin (B-12) 500 Mcg Tablet) 1,000 mcg PO QPM [facility] Stop: 03/21/25 20:59 Last Admin: 02/19/25 22:02 Dose: 1,000 mcg Dextrose (Dextrose 50% 50 Ml Syringe) 25 - 50 ml IV UD PRN; Protocol PRN Reason: Hypoglycemia Protocol Stop: 03/21/25 13:29 Diphenhydramine HCl (Diphenhydramine Capsule 25 Mg Cap) 25 mg PO HS [facility] Stop: 03/21/25 20:59 Last Admin: 02/19/25 22:04 Dose: 25 mg Finasteride (Finasteride 5 Mg Tab) 5 mg PO QPM [facility] Stop: 03/21/25 20:59 Last Admin: 02/19/25 23:19 Dose: 5 mg Glucagon (Glucagon For Inj 1 Mg Vial) 1 mg SQ UD PRN; Protocol PRN Reason: Hypoglycemia Protocol Stop: 03/21/25 13:29 Glucose (Glucose 40% Gel 15 Gm Tube) 15 - 30 gm PO UD PRN; Protocol PRN Reason: Hypoglycemia Protocol Stop: 03/21/25 13:29 Glucose (Glucose 10 Tab/Tube) 4 - 8 tab PO UD PRN; Protocol PRN Reason: Hypoglycemia Protocol Stop: 03/21/25 13:29 Heparin Sodium (Porcine) (Heparin Sod 5,000 Unit/0.5 Ml Vial) 5,000 units SQ Q8 [facility] Stop: 03/21/25 13:59 Last Admin: 02/20/25 06:10 Dose: 5,000 units Ertapenem (Invanz 1000mg) 1,000 mg in 10 mls @ 2 mls/min IV Q24H [facility] Stop: 03/05/25 22:59 Last Admin: 02/19/25 23:19 Dose: 2 mls/min Insulin Aspart (Insulin Aspart Per Unit Charge) 0 units SC ACHS [facility] Stop: 03/21/25 13:29 Last Admin: 02/20/25 08:41 Dose: 3 units Insulin Glargine (Lantus Per Unit Charge) 0 units SC HS [facility]; Protocol Stop: 03/21/25 20:59 Last Admin: 02/19/25 22:25 Dose: Not Given Ketorolac Tromethamine (Ketorolac Tromethamine 15 Mg/Ml Vial) 15 mg IV Q6H PRN PRN Reason: Pain Stop: 02/25/25 07:38 Last Admin: 02/20/25 08:44 Dose: 15 mg Lactobacillus Acidophilus (Advanced Probiotic 625 Mg Capsule) 625 mg PO QAM [facility] Stop: 03/22/25 08:59 Last Admin: 02/20/25 07:41 Dose: 625 mg Lisinopril (Lisinopril 2.5 Mg Tab) 2.5 mg PO [facility] Stop: 03/21/25 20:59 Last Admin: 02/19/25 22:01 Dose: 2.5 mg Miscellaneous (Mesalamine ~Order Awaiting Action) 1 each N/A QS [facility] Stop: 03/21/25 15:59 Last Admin: 02/20/25 07:23 Dose: Not Given Miscellaneous (Carbohydrates For Hypoglycemia ) 15 - 30 gm PO UD PRN PRN Reason: Hypoglycemia Treatment Stop: 03/21/25 13:29 Miscellaneous Information (Pharmacy Glycemic Mgmt Consult) 1 each N/A UD PRN; Protocol PRN Reason: Consult Stop: 03/21/25 11:26 Morphine Sulfate (Morphine Sulfate 2 Mg/Ml Carp) 2 mg IV Q4H PRN PRN Reason: Pain Stop: 03/05/25 13:54 Ondansetron HCl (Ondansetron Inj 2 Mg/Ml 2 Ml Vial) 4 mg IV Q6H PRN PRN Reason: Nausea Stop: 03/21/25 11:29 Phenazopyridine HCl (Phenazopyridine Hcl 200 Mg Tab) 200 mg PO TID PRN PRN Reason: Pain Stop: 03/22/25 08:13 Pravastatin Sodium (Pravastatin Sod 20 Mg Tab) 20 mg PO [facility] Stop: 03/21/25 20:59 Last Admin: 02/19/25 22:03 Dose: 20 mg Tamsulosin HCl (Tamsulosin Hcl 0.4 Mg Cap) 0.4 mg PO [facility] Stop: 03/22/25 20:59 Vitamin D (Cholecalciferol 25 Mcg (1000 Units) Tab) 25 mcg PO [facility] Stop: 03/21/25 20:59 Last Admin: 02/19/25 22:02 Dose: 25 mcg Vitamin E (Tocopheryl, Dl-Alpha 400 Units 180 Mg Cap) 180 mg PO [facility] Stop: 03/22/25 08:59 Last Admin: 02/20/25 07:41 Dose: 180 mg
[2025-02-20] MEDS: TAMSULOSIN HCL 0.4 MG CAP PO SCH (21:04)
[2025-02-21 06:56] LABS: Hematocrit (blood only) 34.3 % (42.0-52.0); Hemoglobin 11.6 g/dl (14.0-18.0); Mean Corpuscular Hemoglobin 31.5 pg (25.0-34.0); Mean Corpuscular Volume 93.2 fL (80.0-100.0); Platelet Count 156 K/uL (130-400); RDW Standard Deviation 45.2 fL (36.4-46.3); Red Blood Count 3.68 M/uL (4.70-6.10); White Blood Count 5.94 K/ul (4.8-10.8)
[2025-02-21 07:18] LABS: Anion Gap 8.0 (3-11); Blood Urea Nitrogen 19.0 mg/dl (6-23); Calcium 8.6 mg/dl (8.6-10.3); Carbon Dioxide 25.0 mmol/L (21-32); Chloride 105.0 mmol/L (98-107); Creatinine Clr Calc Pharmacy 112.9 ml/min; Glucose 138.0 mg/dl (70-99(Fasting)); Potassium 3.8 mmol/L (3.5-5.1); Sodium 138.0 mmol/L (136-145)
--- NOTE | 2025-02-21 08:49 | Hospitalist Progress Note ---
Date of Service February 21, 2025 Assessment & Plan (1) Painful penis: Plan: -pt had cystoscopy, ureteroendoscopy, laser Lithotripsy and extraction of the right ureteral stone,and bilateral exchange of stent catheter on 02/[address] Cruz. -pain control -urine culture + from gram negative bacilli -on ertapenem -urology consult appreciated -no intervention at this time -pain control and discharge once bacterial sensitivities return. -ESBL + blood cultures, sensitivities pending -ertapenem -ID consult appreciated (2) BPH (benign prostatic hyperplasia): Plan: -flomax (3) Type 2 diabetes mellitus: Plan: -Pharm consult for glycemic management (4) HTN (hypertension): Plan: -lisinopril Plan Heparin SQ for DVT px Admission and Anticipated Discharge Date Admission Date: February 19, 2025 Subjective Pt feeling better this am. No events overnight. Review of Systems Review of Systems: CONST: Negative for fever, body aches and chills. HENT: Negative for neck pain/stiffness, headache, congestion, sore throat, swelling. EYES: Negative for discharge/pain or vision changes. RESP: Negative for cough/hemoptysis and shortness of breath. CV: Negative chest pain, difficulty breathing, palpitations. ABD: Negative pain, nausea, vomiting. : Negative increase frequency, dysuria, blood in urine or stool. MUSC: Negative for muscle aches, edema. SKIN: Negative rash, lesions/sores. NEURO: Negative headache, dizziness, weakness. Physical Exam Physical Exam: GENERAL APPEARANCE NAD, activity normal for age, well developed/ well nourished, no cyanosis, pallor, or diaphoresis. EYES lids/conjunctiva normal. EARS/NOSE/THROAT Mucous membranes moist, nares normal, lips/teeth normal uvula midline without oral pharyngeal erythema, exudate or swelling TMs normal bilaterally. No lymphangitis/lymphedema. HEAD/NECK normocephalic atraumatic, no facial trauma, neck is supple. RESPIRATORY respiratory effort normal, speaks in full sentences, no tripod position, no accessory muscle use. Lungs clear to auscultation without rhonchi, wheezes, rales CARDIAC Regular rate and rhythm, no edema. ABDOMINAL Soft, ND/NT. No evidence of fluid wave. No pulsatile masses on exam, rebound tenderness, Mckeon sign or pain over Mcburney's point. MUSCLES/EXTREMITIES No abnormal range of motion, no swelling. SKIN Warm, pink and dry. No rashes, dermatoses, petechiae or lesions. NEUROLOGICAL Speech is clear and appropriate. Normal level of consciousness. Gait and coordination are normal. 5/5 strength in all extremities. PSYCH Normal mood and affect. Judgement/competence is appropriate Results & Data Results & Data Vital Signs (Past 12 Hours) Vital Signs Temp Pulse Resp BP Pulse Ox O2 Del Method 02/21/25 07:25 36.5 C 78 16 117/70 95 Room Air PG Care Time/CCT Total # of Minutes Spent Total Time Spent with Patient: Total time spent is greater than 50% in coordination of care (as documented) at patient's floor/unit and/or counseling patient: Coding Level of Care Code 31319 SUB INP/OBS CARE 2/35MIN Diagnoses Painful penis N48.89 BPH (benign prostatic hyperplasia) N40.0 Type 2 diabetes mellitus E11.9 HTN (hypertension) I10
--- NOTE | 2025-02-21 09:24 | Infectious Disease Progress Nt ---
Date of Service February 21, 2025 Assessment & Plan (1) E coli bacteremia: (2) Complicated urinary tract infection: Plan Problems: #ESBL E coli bacteremia #Bilateral ureteral stones s/p bilateral ureteral stent placement (01/28/25) and laser lithotripsy and extraction of R ureteral stone with exchange of bilateral ureteral stents and Rezum (02/18/25) #Proteus mirabilis bacteremia (01/28/25): s/p ceftriaxone --> Augmentin to complete 2 week course Micro: 02/19 UCx: NG 02/19 BCx x2: ESBL E coli in 2/4 bottles (S erta, raissa, TMP/SMX. R cipro, levo) 01/28 BCx x2: Proteus mirabilis in 4/4 bottles (S amox/clav, ceftriaxone, pip/tazo. I amp/sul. R amp, cefaz, cipro, levo, TMP/SMX) Abx: Ertapenem 02/19 - present Ceftriaxone 02/19 74 yo M with T2DM, UC, BPH, nephrolithiasis, recent admission 01/28-01/31 with bilateral ureteral stones s/p bilateral ureteral stent placement (01/28/25) c/b Proteus mirabilis bacteremia (s/p ceftriaxone --> Augmentin x 2 weeks course) followed by laser lithotripsy and removal of ureteral stones, bilateral ureteral stent exchange, and Rezum (02/18/25) discharged home with a kan post procedure who presented on 02/19 reporting weakness, rigors, persistent penile pain, found to have ESBL E coli bacteremia. On presentation, T 37.7, HR 121, 89% on room air placed on 3 L NC. Labs showed no leukocytosis, UA with > 50 WBCs. CXR with findings of CHF. Pt was given ceftriaxone. Urology was consulted and recommended no acute intervention at this time. BCx growing ESBL E coli. Ceftriaxone changed to ertapenem. ESBL E coli bacteremia is likely from urinary source given urologic procedure the day prior. Recommendations: - Continue ertapenem 1 g IV q24h while inpatient. On discharge, can transition to TMP/SMX 1 DS tab q12h through 02/28/25 to complete a total 10 day course (note that pt has TMP/SMX listed as an allergy in his chart, but the reaction is "quit working for UTIs", which is not a true allergy. He took TMP/SMX many times years ago. I discussed this with the pt and he is willing to try TMP/SMX again) - If he has an allergic reaction to TMP/SMX, I advised that he can return to the hospital for PICC line placement and IV ertapenem Will sign off. Admission and Anticipated Discharge Date Admission Date: February 19, 2025 Subjective Subsequent visit was provided via telemedicine using two-way real-time interactive telecommunication between the patient and the telemedicine provider. For the duration of the visit, the provider was performing the assessment from a different facility than the patient. This includesuse of bluetooth stethoscope forauscultationperformed by the telepresenter that the telemedicine provider can hear if described in the physical exam. Manager Pediatric contact information: Please call [facility] Call Center . (Phone Number For Physician Use Only) After establishing a telemedicine visit, patient was: Patient was verified with two unique identifiers, Patient/authorized rep acknowledged consent and understanding and Gave permission to continue telehealth session Time Spent with Patient: Subsequent => 25 min Afebrile without leukocytosis Review of System A complete ROS was performed and is negative except as mentioned in the HPI. Physical Exam Physical Exam: GEN: Well-appearing, in NAD. RESP: No increased work of breathing NEURO: Alert and oriented. Answers all questions appropriately. Speech not slurred. PSYCH: Normal mood, affect appropriate. Results & Data Vital Signs (Past 12 Hours) Vital Signs Temp Pulse Resp BP Pulse Ox O2 Del Method 02/21/25 07:25 36.5 C 78 16 117/70 95 Room Air Laboratory Results Short CBC 02/21/25 Range/Units 05:57 WBC 5.94 (4.8-10.8) K/ul Hgb 11.6 L (14.0-18.0) g/dl Hct 34.3 L (42.0-52.0) % Plt Count 156 (130-400) K/uL BMP 02/21/25 05:57 Sodium 138 Potassium 3.8 Chloride 105 Carbon Dioxide 25 BUN 19 Creatinine 0.71 Glucose 138 H Calcium 8.6 Medications Administered Current Inpatient Medications Acetaminophen (Acetaminophen 500 Mg Tab) 1,000 mg PO TID PRN PRN Reason: Pain Stop: 03/21/25 11:24 Aspirin (Aspirin 81 Mg Ectab) 81 mg PO Q48H [facility] Stop: 03/22/25 08:59 Last Admin: 02/20/25 07:41 Dose: 81 mg Bisacodyl (Bisacodyl 10 Mg Supp) 10 mg OK DAILY PRN PRN Reason: Constipation Stop: 03/21/25 11:24 Calcium/Vitamin D (Calcium 600mg + Vit D 400 Iu Tab) 1 tab PO QAM [facility] Stop: 03/22/25 08:59 Last Admin: 02/21/25 07:46 Dose: 1 tab Cyanocobalamin (Cyanocobalamin (B-12) 500 Mcg Tablet) 1,000 mcg PO QPM [facility] Stop: 03/21/25 20:59 Last Admin: 02/20/25 21:05 Dose: 1,000 mcg Dextrose (Dextrose 50% 50 Ml Syringe) 25 - 50 ml IV UD PRN; Protocol PRN Reason: Hypoglycemia Protocol Stop: 03/21/25 13:29 Diphenhydramine HCl (Diphenhydramine Capsule 25 Mg Cap) 25 mg PO HS [facility] Stop: 03/21/25 20:59 Last Admin: 02/20/25 21:11 Dose: 25 mg Finasteride (Finasteride 5 Mg Tab) 5 mg PO QPM [facility] Stop: 03/21/25 20:59 Last Admin: 02/20/25 21:04 Dose: 5 mg Glucagon (Glucagon For Inj 1 Mg Vial) 1 mg SQ UD PRN; Protocol PRN Reason: Hypoglycemia Protocol Stop: 03/21/25 13:29 Glucose (Glucose 40% Gel 15 Gm Tube) 15 - 30 gm PO UD PRN; Protocol PRN Reason: Hypoglycemia Protocol Stop: 03/21/25 13:29 Glucose (Glucose 10 Tab/Tube) 4 - 8 tab PO UD PRN; Protocol PRN Reason: Hypoglycemia Protocol Stop: 03/21/25 13:29 Heparin Sodium (Porcine) (Heparin Sod 5,000 Unit/0.5 Ml Vial) 5,000 units SQ Q8 [facility] Stop: 03/21/25 13:59 Last Admin: 02/21/25 05:56 Dose: Not Given Ertapenem (Invanz 1000mg) 1,000 mg in 10 mls @ 2 mls/min IV Q24H [facility] Stop: 03/05/25 22:59 Last Admin: 02/20/25 23:18 Dose: 2 mls/min Insulin Aspart (Insulin Aspart Per Unit Charge) 0 units SC [facility] Stop: 03/21/25 13:29 Last Admin: 02/21/25 08:33 Dose: 6 units Insulin Glargine (Lantus Per Unit Charge) 0 units SC HS [facility]; Protocol Stop: 03/21/25 20:59 Last Admin: 02/20/25 21:07 Dose: 5 units Ketorolac Tromethamine (Ketorolac Tromethamine 15 Mg/Ml Vial) 15 mg IV Q6H PRN PRN Reason: Pain Stop: 02/25/25 07:38 Last Admin: 02/20/25 21:03 Dose: 15 mg Lactobacillus Acidophilus (Advanced Probiotic 625 Mg Capsule) [facility] Stop: 03/22/25 08:59 Last Admin: 02/21/25 07:46 Dose: 625 mg Lisinopril (Lisinopril 2.5 Mg Tab) 2.5 mg PO [facility] Stop: 03/21/25 20:59 Last Admin: 02/20/25 21:05 Dose: 2.5 mg Miscellaneous (Mesalamine ~Order Awaiting Action) 1 each N/A QS [facility] Stop: 03/21/25 15:59 Last Admin: 02/21/25 07:45 Dose: Not Given Miscellaneous (Carbohydrates For Hypoglycemia ) 15 - 30 gm PO UD PRN PRN Reason: Hypoglycemia Treatment Stop: 03/21/25 13:29 Miscellaneous Information (Pharmacy Glycemic Mgmt Consult) 1 each N/A UD PRN; Protocol PRN Reason: Consult Stop: 03/21/25 11:26 Morphine Sulfate (Morphine Sulfate 2 Mg/Ml Carp) 2 mg IV Q4H PRN PRN Reason: Pain Stop: 03/05/25 13:54 Ondansetron HCl (Ondansetron Inj 2 Mg/Ml 2 Ml Vial) 4 mg IV Q6H PRN PRN Reason: Nausea Stop: 03/21/25 11:29 Phenazopyridine HCl (Phenazopyridine Hcl 200 Mg Tab) 200 mg PO TID PRN PRN Reason: Pain Stop: 03/22/25 08:13 Pravastatin Sodium (Pravastatin Sod 20 Mg Tab) 20 mg PO [facility] Stop: 03/21/25 20:59 Last Admin: 02/20/25 21:06 Dose: 20 mg Tamsulosin HCl (Tamsulosin Hcl 0.4 Mg Cap) 0.4 mg PO [facility] Stop: 03/22/25 20:59 Last Admin: 02/20/25 21:04 Dose: 0.4 mg Vitamin D (Cholecalciferol 25 Mcg (1000 Units) Tab) 25 mcg PO [facility] Stop: 03/21/25 20:59 Last Admin: 02/20/25 21:05 Dose: 25 mcg Vitamin E (Tocopheryl, Dl-Alpha 400 Units 180 Mg Cap) 180 mg PO [facility] Stop: 03/22/25 08:59 Last Admin: 02/21/25 07:46 Dose: 180 mg
--- NOTE | 2025-02-21 10:33 | Urology Progress Note ---
Date of Service February 21, 2025 Assessment & Plan (1) Complicated urinary tract infection: (2) Sepsis: (3) E coli bacteremia: Plan: 74 year old male recently s/p cystoscopy, bilateral ureteronephroscopy, laser lithotripsy and extraction of right ureteral stone, exchange of bilateral ureteral stents and Rezum admitted for penile pain and concern for infection. Patient currently afebrile, hemodynamically stable Labs reviewedcreatinine 0.71, WBC 5.94 Urine culture with no growth Blood cultures showing E. coli ESBL Ceftriaxone was switched to Ertapenem Infectious disease consult reviewedcontinue ertapenem while inpatient and transition to Bactrim upon discharge Maintain Hopper catheter upon discharge and follow-up with urology Continue supportive care and medical management per hospital medicine service Outpatient urology follow-up in place will sign off, please contact our service with any additional questions or concerns Admission and Anticipated Discharge Date Admission Date: February 19, 2025 Subjective Patient seen and examined at bedside this morning. No acute issues overnight. He reports feeling better this morning. Hopper intact. Review of Systems Constitutional: as per Subjective / HPI Genitourinary: + as per Subjective / HPI Physical Exam Constitutional: no acute distress Respiratory: normal respiratory effort; no respiratory distress and no labored breathing Gastrointestinal (Abdomen): Inspection/Auscultation: abdomen normal to inspection Musculoskeletal: Head/Neck/Chest: normocephalic Neurologic: moves all extremities and awake Psychiatric: Orientation: alert and oriented x 3 Genitourinary: Hopper draining light walsh red urine Results & Data Vital Signs (Past 12 Hours) Vital Signs Temp Pulse Resp BP Pulse Ox O2 Del Method 02/21/25 07:25 36.5 C 78 16 117/70 95 Room Air PG Care Time/CCT Total # of Minutes Spent Total Time Spent with Patient: Total time spent is greater than 50% in coordination of care (as documented) at patient's floor/unit and/or counseling patient: Coding Level of Care Code 61016 SUB INP/OBS CARE 08/17MIN Diagnoses Complicated urinary tract infection N39.0 Sepsis A41.9 E coli bacteremia R78.81; B96.20
--- NOTE | 2025-02-21 13:55 | Pharmacy Report ---
Pharmacy Glycemic Short Note 2 - Date of Service February 21, 2025 - Glycemic Short BSG Results (Last 24 hours): 02/20/25 02/20/25 02/21/25 16:19 20:32 05:57 Glucose 138 H POC Glucose 123 H 126 H 02/21/25 02/21/25 07:23 11:32 Glucose POC Glucose 138 H 135 H OUTPATIENT ANTIDIABETIC REGIMEN: * metformin 1 g PO BIDM * Ozempic 0.5 mg SC weekly (Sundays) HbA1c: 7.1% (11/08/24) ASSESSMENT: 02/21 * Aiden received 26 units of insulin yesterday (5 were basal) * Fasting BSG this AM within goal range, will continue current basal regimen. * No changes to NovoLog at this time, he is currently receiving IV Invanz. 02/19 * KIM is a 74 year old male who presents with penile pain following urologic procedure w/ stone extraction, REZUM, and stent exchange * Blood sugar on presentation is 207 mg/dL w/ reasonably controlled HbA1c from October * Will order low-dose basal scale this evening and weight-based Novolog * Diet is ordered. Urology consulted, no plan for intervention at this time. PLAN FOR INPATIENT GLYCEMIC CONTROL: * Hold outpatient oral diabetes medications * Basal insulin * Lantus 0-5-10 units SC HS * Bolus insulin * NovoLog per scale ACHS or Q6hrs while NPO * Goal Range: Low 110 mg/dL - High 140 mg/dL * Correction Factor: 25 mg/dL/unit * Nutritional / Prandial insulin per carb ratio of 1 unit per 9 grams CHO consumed
--- NOTE | 2025-02-21 23:58 | Electrocardiogram Report ---
Test Reason : Blood Pressure : */* mmHG Vent. Rate : 125 BPM Atrial Rate : 125 BPM P-R Int : 152 ms QRS Dur : 86 ms QT Int : 310 ms P-R-T Axes : 9 -39 58 degrees QTcB Int : 447 ms Sinus tachycardia Left axis deviation Nonspecific ST abnormality Poor R wave progression, consider anterior NC vs. lead placement vs. LVH Abnormal ECG When compared with ECG of 18-Feb-2025 06:07, Vent. rate has increased by 42 bpm Limb lead reversal is no longer present Confirmed by Haim Sousa ([id number]) on 02/21/2025 11:58:33 PM Referred By: REFERRED SELF Confirmed By: Haim Sousa
[2025-02-22] MEDS: POLYETHYLENE (MIRALAX) 17 GM PACK PO PRN (06:36)
[2025-02-22 07:51] LABS: Hematocrit (blood only) 34.1 % (42.0-52.0); Hemoglobin 11.6 g/dl (14.0-18.0); Mean Corpuscular Hemoglobin 31.5 pg (25.0-34.0); Mean Corpuscular Volume 92.7 fL (80.0-100.0); Platelet Count 170 K/uL (130-400); RDW Standard Deviation 45.1 fL (36.4-46.3); Red Blood Count 3.68 M/uL (4.70-6.10); White Blood Count 5.20 K/ul (4.8-10.8)
[2025-02-22 08:10] LABS: Anion Gap 8.0 (3-11); Blood Urea Nitrogen 19.0 mg/dl (6-23); Calcium 8.6 mg/dl (8.6-10.3); Carbon Dioxide 25.0 mmol/L (21-32); Chloride 105.0 mmol/L (98-107); Creatinine Clr Calc Pharmacy 108.3 ml/min; Glucose 146.0 mg/dl (70-99(Fasting)); Potassium 3.9 mmol/L (3.5-5.1); Sodium 138.0 mmol/L (136-145)
--- NOTE | 2025-02-22 09:28 | Hospitalist Progress Note ---
Date of Service February 22, 2025 Assessment & Plan (1) Painful penis: Plan: -pt had cystoscopy, ureteroendoscopy, laser Lithotripsy and extraction of the right ureteral stone,and bilateral exchange of stent catheter on 02/[address] Cruz. -pain control -urine culture + from gram negative bacilli -on ertapenem -urology consult appreciated -no intervention at this time -pain control and discharge once bacterial sensitivities return. -ESBL + blood cultures -ertapenem -ID consult appreciated -patient with persist penial pain, will d/c Hopper and perform voiding trial -plan to d/c home with Bactrim (2) BPH (benign prostatic hyperplasia): Plan: -flomax (3) Type 2 diabetes mellitus: Plan: -Pharm consult for glycemic management (4) HTN (hypertension): Plan: -lisinopril Plan Heparin SQ for DVT px Admission and Anticipated Discharge Date Admission Date: February 19, 2025 Subjective Pt still has pain in his penis. Review of Systems Review of Systems: CONST: Negative for fever, body aches and chills. HENT: Negative for neck pain/stiffness, headache, congestion, sore throat, swelling. EYES: Negative for discharge/pain or vision changes. RESP: Negative for cough/hemoptysis and shortness of breath. CV: Negative chest pain, difficulty breathing, palpitations. ABD: Negative pain, nausea, vomiting. : Negative increase frequency, dysuria, blood in urine or stool. MUSC: Negative for muscle aches, edema. SKIN: Negative rash, lesions/sores. NEURO: Negative headache, dizziness, weakness. Physical Exam Physical Exam: GENERAL APPEARANCE NAD, activity normal for age, well developed/ well nourished, no cyanosis, pallor, or diaphoresis. EYES lids/conjunctiva normal. EARS/NOSE/THROAT Mucous membranes moist, nares normal, lips/teeth normal uvula midline without oral pharyngeal erythema, exudate or swelling TMs normal bilaterally. No lymphangitis/lymphedema. HEAD/NECK normocephalic atraumatic, no facial trauma, neck is supple. RESPIRATORY respiratory effort normal, speaks in full sentences, no tripod position, no accessory muscle use. Lungs clear to auscultation without rhonchi, wheezes, rales CARDIAC Regular rate and rhythm, no edema. ABDOMINAL Soft, ND/NT. No evidence of fluid wave. No pulsatile masses on exam, rebound tenderness, Mckeon sign or pain over Mcburney's point. MUSCLES/EXTREMITIES No abnormal range of motion, no swelling. SKIN Warm, pink and dry. No rashes, dermatoses, petechiae or lesions. NEUROLOGICAL Speech is clear and appropriate. Normal level of consciousness. Gait and coordination are normal. 5/5 strength in all extremities. PSYCH Normal mood and affect. Judgement/competence is appropriate Results & Data Results & Data Vital Signs (Past 12 Hours) Vital Signs Temp Pulse Resp BP Pulse Ox O2 Del Method 02/22/25 07:44 36.6 C 72 16 126/72 93 Room Air 02/21/25 23:25 Room Air 02/21/25 22:48 36.3 C L 73 18 108/62 96 Room Air PG Care Time/CCT Total # of Minutes Spent Total Time Spent with Patient: Total time spent is greater than 50% in coordination of care (as documented) at patient's floor/unit and/or counseling patient: Coding Level of Care Code 46359 SUB INP/OBS CARE 2/35MIN Diagnoses Painful penis N48.89 BPH (benign prostatic hyperplasia) N40.0 Type 2 diabetes mellitus E11.9 HTN (hypertension) I10
[2025-02-22] MEDS: PHENAZOPYRIDINE HCL 200 MG TAB PO PRN (10:46)
[2025-02-22] MEDS: ACETAMINOPHEN 500 MG TAB PO PRN (14:08)
[2025-02-22 21:52] VITALS: TEMP 97.5
[2025-02-23 06:03] LABS: Hematocrit (blood only) 33.8 % (42.0-52.0); Hemoglobin 11.8 g/dl (14.0-18.0); Mean Corpuscular Hemoglobin 32.0 pg (25.0-34.0); Mean Corpuscular Volume 91.6 fL (80.0-100.0); Platelet Count 174 K/uL (130-400); RDW Standard Deviation 43.7 fL (36.4-46.3); Red Blood Count 3.69 M/uL (4.70-6.10); White Blood Count 6.53 K/ul (4.8-10.8)
[2025-02-23 06:21] LABS: Anion Gap 8.0 (3-11); Blood Urea Nitrogen 20.0 mg/dl (6-23); Calcium 8.7 mg/dl (8.6-10.3); Carbon Dioxide 25.0 mmol/L (21-32); Chloride 106.0 mmol/L (98-107); Creatinine Clr Calc Pharmacy 104.1 ml/min; Glucose 128.0 mg/dl (70-99(Fasting)); Potassium 4.1 mmol/L (3.5-5.1); Sodium 139.0 mmol/L (136-145)
[2025-02-23 07:25] VITALS: BP 121/74; PULSE 73; RESP 17; O2SAT 94
--- NOTE | 2025-02-23 08:39 | Discharge Summary ---
Discharge Summary Date of Service February 23, 2025 Principal Dx & Hospital Course #1 = Principal Diagnosis (1) Painful penis: -pt had cystoscopy, ureteroendoscopy, laser Lithotripsy and extraction of the right ureteral stone,and bilateral exchange of stent catheter on 02/[address] Cruz. -pain control -urine culture + from gram negative bacilli -on ertapenem -urology consult appreciated -no intervention at this time -pain control and discharge once bacterial sensitivities return. -ESBL + blood cultures -ertapenem -ID consult appreciated -plan to d/c home with Bactrim (2) BPH (benign prostatic hyperplasia): -flomax (3) Type 2 diabetes mellitus: -Pharm consult for glycemic management (4) HTN (hypertension): -lisinopril Plan Heparin SQ for DVT px Admission HPI Per Admitting Provider Pt is a 74 y/o male with pmh of BPH, kidney stones, HTN, DM, who yesterday underwent cystoscopy, ureteronephroscopy, laser Lithotripsy and extraction of the right ureteral stone,and bilateral exchange of stent catheter. He was discharged home with a Hopper after the procedure. Pt started feeling pain in his penis afterwards which was not improving. In the ER patient was given a dose of rocephin and will be admitted for further evaluation by urology for patient's post procedure symptoms. Discharge Exam GENERAL APPEARANCE NAD, activity normal for age, well developed/ well nourished, no cyanosis, pallor, or diaphoresis. EYES lids/conjunctiva normal. EARS/NOSE/THROAT Mucous membranes moist, nares normal, lips/teeth normal uvula midline without oral pharyngeal erythema, exudate or swelling TMs normal bilaterally. No lymphangitis/lymphedema. HEAD/NECK normocephalic atraumatic, no facial trauma, neck is supple. RESPIRATORY respiratory effort normal, speaks in full sentences, no tripod position, no accessory muscle use. Lungs clear to auscultation without rhonchi, wheezes, rales CARDIAC Regular rate and rhythm, no edema. ABDOMINAL Soft, ND/NT. No evidence of fluid wave. No pulsatile masses on exam, rebound tenderness, Mckeon sign or pain over Mcburney's point. MUSCLES/EXTREMITIES No abnormal range of motion, no swelling. SKIN Warm, pink and dry. No rashes, dermatoses, petechiae or lesions. NEUROLOGICAL Speech is clear and appropriate. Normal level of consciousness. Gait and coordination are normal. 5/5 strength in all extremities. PSYCH Normal mood and affect. Judgement/competence is appropriate Discharge Plan Discharge Items Patient Disposition: Home - Self-Care Reason For Visit: UTI Discharge Diagnosis: ESBL bacteremia, UTI Condition on Discharge: Serious Activity: Resume your previous activity Non-emergency contact: Primary Care Provider Call non-emergency contact if: you have any medication questions Follow-up/Referrals: Kim Olivrea MD [Primary Care Provider] - Diet: Regular Addtl Attending Provider Instructions: Follow up with Urology Wednesday 02/28 Pending Studies at Discharge: No Stand-Alone Forms: My [employer], Smoking Cessation Medications and DC Order Prescriptions: New phenazopyridine [Pyridium] 200 mg Tablet 200 mg PO TID PRN (Reason: pain) Qty: 60 0RF tamsulosin 0.4 mg Capsule 0.4 mg PO HS Qty: 30 0RF sulfamethoxazole-trimethoprim [Bactrim DS] 800-160 mg tablet 1 tab PO BID Qty: 10 0RF Continued pravastatin 20 mg tablet 20 mg PO HS mecobalamin (vitamin B12) 1,000 mcg tablet,chewable 1,000 mcg PO QPM lisinopril 2.5 mg tablet 2.5 mg PO HS (DME) lancets Misc See Rx Instructions .Route Rx Instructions: As directed (DME) blood sugar diagnostic Strip See Rx Instructions .Route Rx Instructions: As directed bisacodyl 10 mg suppository 10 mg VA DAILY PRN (Reason: Constipation) finasteride 5 mg tablet 5 mg PO QPM Qty: 90 3RF metformin 500 mg tablet extended release 24 hr 1,000 mg PO BID Ozempic 0.25 mg or 0.5 mg (2 mg/3 mL) pen injector 0.5 mg SUBCUT WK Rx Instructions: monday mesalamine 1.2 gram tablet,delayed release (DR/EC) 2.4 g PO BID calcium carbonate-vitamin D3 [Calcium 500 + D] 500 mg-10 mcg (400 unit) Tablet 1 tab PO QAM aspirin [Aspirin Childrens] 81 mg Tablet,Chewable 81 mg PO Q OTHER DAY sildenafil 100 mg tablet 100 mg PO DAILY PRN (Reason: sexual activity) Qty: 30 2RF Prebiotic Fiber 2 gram Tablet,Chewable 4 g PO QAM acetaminophen [Tylenol Extra Strength] 500 mg Tablet 1,000 mg PO TID PRN (Reason: Pain) doxylamine succinate 25 mg Tablet 25 mg PO HS cholecalciferol (vitamin D3) [Vitamin D3] 25 mcg (1,000 unit) Tablet 25 mcg PO HS vitamin E succinate 268 mg (400 unit) Tablet 268 mg PO QAM Probiotic 10 billion cell Capsule 10,000 mmu cells PO QAM Discontinued amoxicillin-pot clavulanate 500-125 mg tablet 1 tab PO BID Qty: 10 0RF Discharge Orders: Discharge Order (Routine); Ordered 02/23/25 Ordered By: Scooter Prado/Other Patient Handouts: Managing Type 2 Diabetes Admission Data Admit Date/Time: 02/19/25 11:30 Attending Provider: Scooter Mccarthy Admit Provider: Scooter Mccarthy Primary Care Provider: Kim Olivera Other Providers: Jose Dupont; Scooter Mccarthy Hospital Stay Data Consultations 02/19/25 11:28 Consult Urology Routine 02/19/25 11:34 ED Decision to Admit Stat 02/20/25 11:11 Consult Infectious Diseases Routine Pending Results Patient Have Any Pending Studies at Discharge: No Discharge Instructions Given to Patient (Per Discharging Provider) Follow up with Urology Wednesday 02/28 Total Time Total Time Spent Total Time Spent (In Minutes): 50 Coding Level of Care Code 70687 INP/OBS DISCH >30 MIN Diagnoses Painful penis N48.89 BPH (benign prostatic hyperplasia) N40.0 Type 2 diabetes mellitus E11.9 HTN (hypertension) I10
--- NOTE | 2025-02-26 08:53 | Coding Query ---
To promote full compliance with coding requirements relating to patient care, provider participation is requested in all cases of solution developer uncertainty. Please assist us with the question(s) below: Coding Question(s): The diagnosis below was documented in the ER and the 02/21 Urology Progress Note,then subsequently fell off all further documentation. Please indicate if it is still a possible diagnosis or ruled out. Physician's Response(s): SEPSIS (documented on ER, and the 02/21 Urology Progress Note) (x ) Diagnosed and POA ( ) Diagnosed and not POA ( ) Ruled out ( ) Other (please specify) MTDD
--- NOTE | 2025-02-26 08:59 | Coding Query ---
CODING QUERY To promote full compliance with coding requirements relating to patient care, provider participation is requested in all cases of can inspector uncertainty. Please assist us with the question(s) below: In the record, it states that the patient has a Complicated UTI. Please clarify below the cause of the UTI if applicable. Thank you. ( ) The chronic kan was the cause of the UTI. ( ) Other urinary cath/device was the cause of the UTI. Please specify ( ) UTI is likely Postoperative Infection UTI complication of procedure (X ) UTI, unspecified cause. ( ) Other (Specify): Principal Diagnosis: "that condition established after study, to be chiefly responsible for occasioning the admission of the patient to the hospital for care." Co-Existing Principal Diagnosis: "when two or more diagnoses equally meet the criteria for principal diagnosis as determined by the circumstances of admission, diagnostic work up, and/or therapy provided, and the Alphabetic Index, Tabular List, or another coding guideline does not provide sequencing direction, any one of the diagnoses may be sequenced first." "When the physician has documented what appears to be a current diagnosis in the body of the record, but has not included the diagnosis in the final diagnostic statement, the physician should be asked whether the diagnosis should be added." (Source Coding [facility] 2 QTR90. p3-4) VALERIE
== END 2025-02-23 10:08 | disposition home or self-care (01) | DRG 854 ==
LOC: ED 08:49 → EDINP 11:30 → 3E 17:19

== ENCOUNTER 2025-03-15 07:54 | Observation (INO) ==
--- NOTE | 2025-03-15 08:38 | Emergency Department Note ---
Impression & Plan Acute pain in scrotum, Acute UTI (urinary tract infection), Epididymo-orchitis, acute ED Provider Note NAME: CARLITOS LOCKHART AGE: 74 SEX: Male INFORMANT: Patient ED PROVIDER(S): Idris Mendoza MD CHIEF COMPLAINT: Testicular pain PLAN: Disposition: Admitted Outpatient prescription management: none Referral: None MEDICAL DECISION MAKING: Patient presented because of testicular pain. On examination he was swollen and tender bilaterally. He also had suprapubic tenderness. Patient underwent a workup. He is found to have a white count of 16,000. Analysis was concerning for infection. Hopper catheter was placed. Patient was was noted to have Proteus infection resistant to Bactrim in the past as well as an ESBL E. coli. Ertapenem was chosen for antibiotic coverage after discussion with ED pharmacist. Patient underwent CT imaging which showed cystitis. Ultrasound imaging showed epididymoorchitis. Fluid was noted. Discussed with on-call urology, Dr. Ogden. Agreed with antibiotic coverage and conservative management. Martin the fluid is likely reactive due to the infection. No surgical intervention recommended. Consultation was placed with the hospitalist service. Patient was evaluated in the ER and admitted for further management. 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 Vital Signs: reviewed and remarkable for no significant abnormalities Additional History obtained from: Patient's Chronic Medical/Social Conditions affecting care: History of ESBL E. coli, recent kidney stone surgery Prior/ Outside/ External records reviewed: Prior cultures reviewed regarding urinalysis as well as his recent hospitalization discharge summary. Patient was treated with ertapenem and after ID consultation was discharged on Bactrim. Differential Diagnosis: Sepsis, prostatitis, scrotal abscess, epididymitis, renal colic, UTI, appendicitis, diverticulitis, mesenteric ischemia, aortic pathology, infections, as well as other pathologies. Diagnostics, independently interpreted by me: ECG: Twelve-lead ECG reveals normal sinus rhythm at 99 beats per minute. No evidence of pericarditis, ischemia, ectopy, or dysrhythmia. Cardiac Monitoring: Cardiac monitoring ordered by me: The patient was placed on continuous cardiac monitoring and observed. It revealed a normal sinus rhythm at 80 beats per minute without ectopy or evidence of dysrhythmia. Medical decision rules: none Imaging studies: CT scan of the abdomen pelvis reveals cystitis. No obstructing stones. I refer you to the EMR for further details. HPI: 74 year old Male arrives for evaluation of testicular pain. This started last week and is worsening. The patient also notes the following associated symptoms, chills, diaphoresis, suprapubic abdominal pain, urinary incontinence. Patient was recently admitted for E. coli bacteremia/UTI and kidney stone. Patient states he had kidney stone removed. He was discharged on antibiotics. The patient has been taking Bactrim since hospital discharge. Current pain is rated as 0 at rest but he notes it as moderate to severe with palpation or movement. He has scrotal swelling and redness. Over the last week he has had issues with urinary incontinence. is present and helps with history. She notes that his Tmax at home was 99. Pt denies LOC, headache, fevers, chills, visual changes, neck pain, chest pain, breathing difficulties, nausea, vomiting,back pain, melena, hematochezia, numbness, weakness, lymphadenopathy, rash, or other complaints.. PAST MEDICAL HISTORY: See Below, diabetes, UTI, kidney stone, right femur fracture treated nonoperatively PAST SURGICAL HISTORY: See Below, laser lithotripsy SOCIAL HISTORY: See Below, HOME MEDICATIONS: See Below ALLERGIES: See Below VITALS: See Below PHYSICAL EXAMINATION: GENERAL: Awake, mildly uncomfortable-appearing, in no distress HENT: Normocephalic, atraumatic. Oropharynx unremarkable. EYES: Normal conjunctiva. Sclera non-icteric. NECK: Inspection normal. Non-tender. Supple. No nuchal rigidity. FROM. No masses. RESPIRATORY: Clear to auscultation. No wheezes. No rales. Normal respiratory effort. CARDIAC: Tachycardic rate. Normal rhythm. No murmurs. No rubs. Extremities warm and well perfused. Pulses equal. No JVD. GI: Soft, non-distended. Suprapubic tenderness to palpation. No rebound or guarding. No masses. RECTAL: Deferred. : No penile discharge noted. There is moderate scrotal swelling which seems to be worse on the right. Scrotal erythema present. Testicular tenderness present bilaterally. MUSCULOSKELETAL: Atraumatic. Chest examination reveals no tenderness. The back is symmetrical on inspection without obvious abnormality. There is no CVA tenderness to palpation. No joint edema. LOWER EXTREMITIES: Calves are equal size bilaterally and non-tender. No edema. No discoloration. NEURO: Normal sensorium. No sensory or motor deficits noted. SKIN: No rash or jaundice noted. PROCEDURES: none CRITICAL CARE: none OBSERVATION NOTE: none Past Med/Surg History Problem List (Updated 03/16/25 @ 08:22 by Idris Mendoza MD) Epididymo-orchitis, acute (Acute) Acute UTI (urinary tract infection) (Acute) Acute pain in scrotum (Acute) Sepsis (Acute) UTI (urinary tract infection) (Acute) E coli bacteremia HTN (hypertension) Painful penis Hydronephrosis (Acute) Ureterolithiasis (Acute) Complicated urinary tract infection (Acute) Hydroureteronephrosis Bilateral ureteral calculi Tinnitus of right ear Erectile dysfunction BPH (benign prostatic hyperplasia) Arthritis Kidney stones Epididymal cyst Medical History Type 2 diabetes mellitus Generalized weakness since sepsis early January 2025. has in-home physical therapy and home exercises History of recent hospitalization at [facility] end of December 2024 and early January 2025 - complicated UTI + sepsis. Hx of colonic polyps Ulcerative colitis Indwelling Hopper catheter present Hx of sepsis end of December 2024 treated at [facility] emergency room and inpatient. 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) History of right hip replacement ~2000 History of back surgery L4 discectomy Hx of appendectomy Family History Brother Prostate cancer both brothers Diabetes Heart disease Kidney stones Mother Breast cancer Family history of cervical cancer Father Diabetes Other No family history of adverse response to anesthesia Social History Smoking Status: Former smoker Smoking End Date: 50 years ago.; Second Hand Exposure: No; Do You Dip or Chew Tobacco: No; Hx Alcohol Use: Yes Alcohol type: beer Hx Substance Use: No Preferred Language: Kiswahili Communication Ability: Effective 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 sulfamethoxazole Allergy Unknown PER PT Verified 02/18/25 05:50 [From Bactrim] "QUIT WORKING FOR UTI'S". trimethoprim [From Bactrim] Allergy Unknown PER PT Verified 02/18/25 05:50 "QUIT WORKING FOR UTI'S". Home Meds Home Medications Medication Instructions Recorded Confirmed blood sugar diagnostic 08/23/21 02/04/25 lancets 08/23/21 02/04/25 mecobalamin (vitamin B12) 1,000 1,000 mcg PO QPM 08/23/21 03/15/25 mcg chewable tablet pravastatin 20 mg tablet 20 mg PO HS 08/23/21 03/15/25 aspirin 81 mg chewable tablet 81 mg PO Q OTHER DAY 11/07/24 03/15/25 (Aspirin Childrens) mesalamine 1.2 gram tablet,delayed 2.4 g PO BID 11/07/24 03/15/25 release metformin 500 mg tablet,extended 500 mg PO BID 11/07/24 03/15/25 release 24 hr semaglutide 0.25 mg or 0.5 mg (2 0.5 mg subcut WK 11/07/24 03/15/25 mg/3 mL) subcutaneous pen injector (Ozempic) inulin 2 gram chewable tablet 4 g PO QAM 01/13/25 03/15/25 (Prebiotic Fiber) bisacodyl 10 mg rectal suppository 10 mg IN DAILY PRN Constipation 02/04/25 03/15/25 Lactobacillus acidophilus 10 10,000 mmu cells PO QAM 02/11/25 03/15/25 billion cell capsule (Probiotic) acetaminophen 500 mg tablet 500 mg PO TID PRN Pain 02/11/25 03/15/25 (Tylenol Extra Strength) cholecalciferol (vitamin D3) 25 25 mcg PO HS 02/11/25 03/15/25 mcg (1,000 unit) tablet (Vitamin D3) doxylamine succinate 25 mg tablet 25 mg PO HS 02/11/25 03/15/25 vitamin E succinate 268 mg (400 268 mg PO QAM 02/11/25 03/15/25 unit) tablet ibuprofen 200 mg tablet 200 mg PO Q6H PRN Pain 03/15/25 03/15/25 Previous Rx's Medication Instructions Recorded finasteride 5 mg tablet 5 mg PO QPM #90 tabs 02/04/25 Results & Data (ED) Vital Signs Vital Signs - 24 hr 03/15/25 08:16 03/15/25 08:26 03/15/25 08:30 Pulse Rate 101 H 103 H Pulse Rate [Right Finger] Pulse Rate from SpO2 Sensor 103 H Pulse Rhythm [Right Finger] Pulse Strength [Right Finger] Respiratory Rate 22 Respiratory Effort / Characteristics Respiratory Depth Respiratory Pattern Blood Pressure 102/70 Blood Pressure [Right Arm] Blood Pressure Mean 77 Blood Pressure Mean [Right Arm] Blood Pressure Position [Right Arm] Pulse Oximetry 94 94 Oxygen Delivery Method Room Air Room Air 03/15/25 09:30 03/15/25 10:00 03/15/25 10:15 Pulse Rate 100 H 99 H 101 H Pulse Rate [Right Finger] Pulse Rate from SpO2 Sensor 100 H 99 H 101 H Pulse Rhythm [Right Finger] Pulse Strength [Right Finger] Respiratory Rate 18 23 24 Respiratory Effort / Characteristics Respiratory Depth Respiratory Pattern Blood Pressure 125/75 116/68 115/65 Blood Pressure [Right Arm] Blood Pressure Mean 90 84 84 Blood Pressure Mean [Right Arm] Blood Pressure Position [Right Arm] Pulse Oximetry 96 93 94 Oxygen Delivery Method Room Air Room Air Room Air 03/15/25 10:30 03/15/25 11:06 03/15/25 11:36 Pulse Rate 97 H Pulse Rate [Right Finger] 97 H 99 H Pulse Rate from SpO2 Sensor 96 H Pulse Rhythm [Right Finger] Regular Regular Pulse Strength [Right Finger] Normal Normal Respiratory Rate 18 18 16 Respiratory Effort / Characteristics Non-Labored Non-Labored Respiratory Depth Normal Normal Respiratory Pattern Regular Regular Blood Pressure 97/70 L Blood Pressure [Right Arm] 113/66 124/73 Blood Pressure Mean 77 Blood Pressure Mean [Right Arm] 81 90 Blood Pressure Position [Right Arm] Lying Lying Pulse Oximetry 94 97 95 Oxygen Delivery Method Room Air Room Air Room Air 03/15/25 11:45 03/15/25 12:00 03/15/25 12:30 Pulse Rate 95 H Pulse Rate [Right Finger] 100 H 96 H Pulse Rate from SpO2 Sensor 96 H Pulse Rhythm [Right Finger] Regular Regular Pulse Strength [Right Finger] Normal Normal Respiratory Rate 26 H 18 22 Respiratory Effort / Characteristics Non-Labored Spontaneous Non-Labored Spontaneous Respiratory Depth Normal Normal Respiratory Pattern Regular Regular Blood Pressure 115/68 Blood Pressure [Right Arm] 112/72 112/72 Blood Pressure Mean 89 Blood Pressure Mean [Right Arm] 85 85 Blood Pressure Position [Right Arm] Lying Lying Pulse Oximetry 94 96 94 Oxygen Delivery Method Room Air Room Air 03/15/25 12:33 03/15/25 13:00 03/15/25 13:15 Pulse Rate 93 H 93 H 96 H Pulse Rate [Right Finger] Pulse Rate from SpO2 Sensor 92 H 95 H Pulse Rhythm [Right Finger] Pulse Strength [Right Finger] Respiratory Rate 23 23 Respiratory Effort / Characteristics Respiratory Depth Respiratory Pattern Blood Pressure 110/64 Blood Pressure [Right Arm] Blood Pressure Mean 79 Blood Pressure Mean [Right Arm] Blood Pressure Position [Right Arm] Pulse Oximetry 91 90 Oxygen Delivery Method 03/15/25 13:18 03/15/25 13:30 03/15/25 13:30 Pulse Rate 93 H Pulse Rate [Right Finger] Pulse Rate from SpO2 Sensor 93 H Pulse Rhythm [Right Finger] Pulse Strength [Right Finger] Respiratory Rate 22 Respiratory Effort / Characteristics Respiratory Depth Respiratory Pattern Blood Pressure 116/70 116/70 Blood Pressure [Right Arm] Blood Pressure Mean 93 93 Blood Pressure Mean [Right Arm] Blood Pressure Position [Right Arm] Pulse Oximetry 90 Oxygen Delivery Method Laboratory Data 03/16/25 01:27 03/16/25 01:27 Lab Results 03/15/25 03/15/25 03/15/25 Range/Units 08:09 08:34 08:58 WBC 16.15 H (4.8-10.8) K/ul RBC 3.74 L (4.70-6.10) M/uL Hgb 11.9 L (14.0-18.0) g/dl Hct 35.4 L (42.0-52.0) % MCV 94.7 (80.0-100.0) fL MCH 31.8 (25.0-34.0) pg MCHC 33.6 (32.0-36.0) g/dL RDW Std Deviation 47.3 H (36.4-46.3) fL RDW Coeff of Jyoti 13.8 (11.5-14.5) % Plt Count 239 (130-400) K/uL MPV 9.6 (9.4-12.4) fL Immature Gran % (Auto) 0.7 % Neut % (Auto) 75.5 % Lymph % (Auto) 8.7 % Crittenden % (Auto) 14.5 % Eos % (Auto) 0.3 % Baso % (Auto) 0.3 % Neut # (Auto) 12.19 H (1.40-6.50) K/uL Lymph # (Auto) 1.40 (1.20-3.40) K/uL [place]enden # (Auto) 2.34 H (0.11-0.59) K/uL Eos # (Auto) 0.05 (0.00-0.50) K/uL Baso # (Auto) 0.05 (0.00-0.20) K/uL Immature Gran # (Auto) 0.12 (0.01-0.20) K/uL Sodium 137 (136-145) mmol/L Potassium 3.7 (3.5-5.1) mmol/L Chloride 105 (98-107) mmol/L Carbon Dioxide 22 (21-32) mmol/L Anion Gap 10 (3-11) BUN 11 (6-23) mg/dl Creatinine 0.67 (0.6-1.4) mg/dl Est Cr Clr Drug Dosing 115.8 ml/min eGFR 97.37 BUN/Creatinine Ratio 16.4 (10-20) Glucose 164 H (70-99(Fasting)) mg/dl Lactate 1.5 (0.4-2.0) mmol/L Calcium 8.9 (8.6-10.3) mg/dl Magnesium 1.7 (1.7-2.4) mg/dl Total Bilirubin 0.7 (0.2-1.0) mg/dl Direct Bilirubin 0.2 (0-0.2) mg/dl AST 27 (13-39) U/L ALT 30 (7-52) U/L Alkaline Phosphatase 128 H (34-104) U/L Troponin I High Sens 4.7 (0-20) pg/ml Total Protein 7.7 (6.0-8.3) gm/dl Albumin 3.6 (3.4-5.0) gm/dl Procalcitonin 0.22 (0-0.5) ng/ml Urine Color Yellow Urine Appearance Cloudy A (Clear) Urine pH 8.0 H (4.5-7.5) Ur Specific Orwell 1.017 (1.000-1.030) Urine Protein 2+ H (Negative) Urine Glucose (UA) Negative (Negative) Urine Ketones Negative (Negative) Urine Blood 2+ H (Negative) Urine Nitrite Negative (Negative) Urine Bilirubin Negative (Negative) Urine Urobilinogen Negative (Negative) Ur Leukocyte Esterase 3+ H (Negative) Urine WBC (Auto) >50 H (0-5) /hpf Urine RBC (Auto) 11-20 H (0-2) /hpf U Hyaline Cast (Auto) 0-2 (0-2) /lpf U Epithel Cells (Auto) 0-2 (0-2) /hpf Urine Bacteria (Auto) 4+ H (None Seen) Urine Comment Administered Medications Aspirin (Aspirin 81 Mg Ectab) 81 mg PO Q2D [facility] Stop: 04/14/25 17:29 Last Admin: 03/15/25 18:45 Dose: 81 mg Documented By: HIMA Cyanocobalamin (Cyanocobalamin (B-12) 500 Mcg Tablet) 1,000 mcg PO QPM NELIDA Stop: 04/14/25 20:59 Last Admin: 03/15/25 21:07 Dose: 1,000 mcg Documented By: KERRIE Finasteride (Finasteride 5 Mg Tab) 5 mg PO QPM NELIDA Stop: 04/14/25 20:59 Last Admin: 03/15/25 21:07 Dose: 5 mg Documented By: KERRIE Heparin Sodium (Porcine) (Heparin Sod 5,000 Unit/0.5 Ml Vial) 5,000 units SQ Q8 NELIDA Stop: 04/14/25 17:28 Last Admin: 03/16/25 06:10 Dose: 5,000 units Documented By: Admin: 03/15/25 21:13 Dose: Not Given Documented By: Admin: 03/15/25 18:44 Dose: 5,000 units Documented By: HIMA Lactated Ringer's (Lr) 1,000 mls @ 80 mls/hr IV .[id number] NELIDA Stop: 03/18/25 14:14 Last Admin: 03/16/25 02:47 Dose: 80 mls/hr Documented By: Infusion: 03/16/25 02:47 Dose: Infused Documented By: Admin: 03/15/25 14:20 Dose: 80 mls/hr Documented By: WENDY Insulin Aspart (Insulin Aspart Per Unit Charge) 0 units SC ACHS NELIDA Stop: 04/14/25 16:29 Last Admin: 03/15/25 21:29 Dose: Not Given Documented By: Admin: 03/15/25 18:35 Dose: Not Given Documented By: HIMA Insulin Glargine (Lantus Per Unit Charge) 0 units SC HS NELIDA; Protocol Stop: 04/14/25 20:59 Last Admin: 03/15/25 21:29 Dose: Not Given Documented By: KERRIE Melatonin (Melatonin 3 Mg Tab) 9 mg PO HS [facility] Stop: 04/14/25 20:59 Last Admin: 03/15/25 21:07 Dose: 9 mg Documented By: KERRIE Miscellaneous (Mesalamine 1.[address] Tablet--Order Awaiting Action) 2.4 each N/A BID [facility] Stop: 04/14/25 20:59 Last Admin: 03/15/25 21:09 Dose: Not Given Documented By: KERRIE Pravastatin Sodium (Pravastatin Sod 20 Mg Tab) 20 mg PO HS [facility] Stop: 04/14/25 20:59 Last Admin: 03/15/25 21:08 Dose: 20 mg Documented By: KERRIE Discontinued Medications Hydromorphone HCl (Hydromorphone Inj 0.5 Mg/0.5 Ml Syr) 0.25 mg IV Q15M PRN PRN Reason: Pain Stop: 03/29/25 08:23 Last Admin: 03/15/25 18:41 Dose: 0.25 mg Documented By: Admin: 03/15/25 08:43 Dose: 0.25 mg Documented By: TREVOR Sodium Chloride (Nss) 1,000 mls @ 999 mls/hr IV .Q1H1M NELIDA Stop: 03/15/25 09:30 Last Infusion: 03/15/25 09:58 Dose: Infused Documented By: Admin: 03/15/25 08:43 Dose: 999 mls/hr Documented By: TREVOR Ertapenem (Invanz 1000mg) 1,000 mg in 10 mls @ 2 mls/min IV NOW STA Stop: 03/15/25 09:44 Last Admin: 03/15/25 09:49 Dose: 2 mls/min Documented By: TREVOR Ioversol (Optiray 320 100ml) 94 ml IV ONCE ONE Stop: 03/15/25 09:24 Last Admin: 03/15/25 09:23 Dose: 94 ml Documented By: MORIS Ondansetron HCl (Ondansetron Inj 2 Mg/Ml 2 Ml Vial) 4 mg IV NOW STA Stop: 03/15/25 08:25 Last Admin: 03/15/25 08:43 Dose: 4 mg Documented By: TREVOR Discharge Plan Visit Data Chief Complaint: Testicular Pain ED Provider: Idris Mendoza Discharge Problem: Acute pain in scrotum, Acute UTI (urinary tract infection), Epididymo-orchitis, acute Patient Disposition: Admitted As Inpatient Condition: Good Discharge Instructions Interventions: ED Discharge Assessment Last Done: 03/15/25 16:44
[2025-03-15 08:43] LABS: Hematocrit (blood only) 35.4 % (42.0-52.0); Hemoglobin 11.9 g/dl (14.0-18.0); Immature Granulocytes # (auto) 0.12 K/uL (0.01-0.20); Immature Granulocytes % (auto) 0.7 %; Mean Corpuscular Hemoglobin 31.8 pg (25.0-34.0); Mean Corpuscular Volume 94.7 fL (80.0-100.0); Platelet Count 239 K/uL (130-400); RDW Standard Deviation 47.3 fL (36.4-46.3); Red Blood Count 3.74 M/uL (4.70-6.10); White Blood Count 16.15 K/ul (4.8-10.8)
[2025-03-15] MEDS: ONDANSETRON INJ 2 MG/ML 2 ML VIAL IV STA (08:43)
[2025-03-15] MEDS: SODIUM CHLORIDE 0.9% 1,000 ML IV SCH (08:43)
[2025-03-15] MEDS: HYDROmorphone INJ 0.5 MG/0.5 ML SYR IV PRN (08:43)
[2025-03-15 08:49] LABS: Alanine Aminotransferase 30.0 U/L (7-52); Alkaline Phosphatase 128.0 U/L (34-104); Anion Gap 10.0 (3-11); Bilirubin,Total 0.7 mg/dl (0.2-1.0); Blood Urea Nitrogen 11.0 mg/dl (6-23); Calcium 8.9 mg/dl (8.6-10.3); Carbon Dioxide 22.0 mmol/L (21-32); Chloride 105.0 mmol/L (98-107); Creatinine Clr Calc Pharmacy 115.8 ml/min; Glucose 164.0 mg/dl (70-99(Fasting)); Magnesium 1.7 mg/dl (1.7-2.4); Potassium 3.7 mmol/L (3.5-5.1); Sodium 137.0 mmol/L (136-145); Total Protein 7.7 gm/dl (6.0-8.3)
[2025-03-15] MEDS: OPTIRAY 320 100ml IV ONE (09:23)
[2025-03-15 09:30] LABS: Appearance Urine Cloudy (Clear); Bacteria Urine Automated 4+ (None Seen); Cast Urine Automated 0-2 /lpf (0-2); Epithelial Cell Urine Auto 0-2 /hpf (0-2); Glucose Urine UA Negative (Negative); WBC Urine Automated >50 /hpf (0-5)
--- NOTE | 2025-03-15 09:47 | Ultrasound Report ---
ULTRASOUND TESTES AND SCROTUM CLINICAL HISTORY: Scrotal pain and swelling COMPARISON STUDY: Scrotal ultrasound dated 07/20/2021 TECHNIQUE: Real-time, grayscale, and color Doppler sonography of the testes and scrotum is performed. Images are reviewed in the transverse and longitudinal planes. FINDINGS: The testes are normal in size and homogeneous in echotexture. The right testis measures 4.5 x 3.0 x 3 .1 cm and the left testis measures 3.6 x 2.2 x 3.1 cm. No intratesticular mass is seen. The right karla tis is markedly hyperemic on color imaging. Normal Doppler arterial and venous waveforms are identifi ed in both testes. The right epididymal head appears enlarged and heterogeneous, and is markedly hyperemic. A 2.8 cm rig ht epididymal head cyst is similar to previous. The left epididymal head is normal as imaged. There is a moderate and mildly complex right-sided scrotal fluid collection versus hydrocele with an estimated volume of 26 cc. There is trace left-sided hydrocele. No varicocele is identified. IMPRESSION: 1. The right testicle and epididymis are markedly hyperemic, typical for epididymoorchitis. 2. No testicular mass is seen and there is no sonographic evidence of testicular torsion of the time of examination. 3. There is a complex right-sided fluid collection versus hydrocele. The sterility of this fluid earl ot be assessed by imaging. 4. The left testis is normal as imaged. ACT 112: Negative or not required by law. Electronically signed by: Rodríguez Sweeney M.D. 03/15/2025 9:44 AM
[2025-03-15] MEDS: ERTAPENEM 1000MG 1,000 MG/10 ML SYR IV STA (09:49)
--- NOTE | 2025-03-15 09:56 | CT Scan Report ---
CT SCAN OF THE ABDOMEN AND PELVIS WITH IV CONTRAST CLINICAL HISTORY: Lower abdominal pain. Scrotal pain and swelling. COMPARISON STUDY: Abdominal CT dated 01/28/2025 TECHNIQUE: Following the IV administration of 94 cc of Optiray 320, CT scan of the abdomen and pelvi s is performed from the lung bases to the proximal femora. Images are reviewed in the axial, sagittal , and coronal planes. IV contrast was administered without complication. A dose lowering technique wa s utilized adhering to the principles of ALARA. CT DOSE: 1516.49 mGy.cm FINDINGS: Lung bases: The heart is mildly enlarged and without pericardial effusion. There is coronary atherosc lerosis. The lung bases are clear noting bibasilar scarring/atelectasis. Liver: The contrast-enhanced liver is enlarged, measuring 24 cm in length. Attenuation is diminished indicating steatosis. There is no intrahepatic biliary ductal dilatation. The hepatic veins and monica l veins are patent. Gallbladder: There are calcified gallstones with no CT evidence of acute cholecystitis. Spleen: Normal in size and attenuation. Pancreas: Unremarkable. Adrenal glands: Unremarkable. Kidneys: The contrast enhanced kidneys are normal in size and without hydronephrosis. The kidneys enh ance symmetrically. A 3 mm nonobstructing calculus is seen in the left lower pole. No right renal miriam culi are identified on this contrast-enhanced examination and no ureteral stone is seen. There is a 4 .8 cm left renal cyst. Additional scattered subcentimeter cortical hypodensities also likely represen t cysts but are too small for definitive characterization. Abdominal vasculature: The abdominal aorta is normal in course and caliber noting moderate atheroscle rotic calcification. Bowel: There is mild clonic diverticulosis without CT evidence of acute diverticulitis. No bowel obst ruction is seen. [id number] fecal retention is noted throughout the colon. The appendix is not identified and reported surgically absent. Peritoneum: There is no intraperitoneal free air or abdominal ascites. There is a fat-containing umbi lical hernia. Lymphadenopathy: None. Pelvic viscera: Evaluation of the pelvis is degraded by streak artifact from a right hip arthroplasty . The bladder is largely decompressed around a Hopper catheter. The bladder wall is thickened and hype remic with surrounding inflammation. The prostate gland is mildly enlarged and heterogeneous. Skeletal structures: The skeletal structures are osteopenic. There is moderate to advanced cervical s pondylosis. No lytic or blastic lesions are seen. A right hip arthroplasty is in place. There is a larson bacute/healing fracture of the lower sacrum, best seen on axial image #308. IMPRESSION: 1. Findings suggest cystitis. Correlate with clinical findings and urinalysis. 2. Cholelithiasis. 3. Left-sided nephrolithiasis. 4. The liver is enlarged and mildly steatotic. 5. Mild cardiomegaly. 6. Additional findings as above. ACT 112: Negative or not required by law. Electronically signed by: Rodríguez Sweeney M.D. 03/15/2025 9:54 AM
--- NOTE | 2025-03-15 12:00 | Electrocardiogram Report ---
Test Reason : Blood Pressure : */* mmHG Vent. Rate : 99 BPM Atrial Rate : 99 BPM P-R Int : 158 ms QRS Dur : 94 ms QT Int : 352 ms P-R-T Axes : -13 -12 -26 degrees QTcB Int : 451 ms Normal sinus rhythm Inferior infarct , age undetermined Abnormal ECG When compared with ECG of 19-Feb-2025 09:37, Inferior infarct is now Present Nonspecific T wave abnormality now evident in Inferior leads Confirmed by Ahsan Irwin ([id number]) on 03/15/2025 12:00:18 PM Referred By: REFERRED SELF Confirmed By: Ahsan Irwin
--- NOTE | 2025-03-15 13:30 | History & Physical Report ---
Date of Service March 15, 2025 Assessment & Plan (1) Acute pain in scrotum: (2) UTI (urinary tract infection): (3) E coli bacteremia: Plan 74 male diabetes UTIs kidney stones Hydronephrosis BPH Arthritis femur fracture treated conservatively Ulcerative colitis Hyperlipidemia who was recently admitted for ESBL E. coli bacteremia UTI and nephrolithiasis Status post lithotripsy And stent status post subsequent removal of stent and discharged reportedly on bactrim who presents with testicular pain over the past week that is progressively worsened, chills suprapubic discomfort and urinary incontinence. Workup in ED notable for leukocytosis. Lactate wnl. CT abdomen pelvis with cystitis and nonobstructing left-sided stone. Scrotal ultrasound notable for epididymal orchitis and complex right-sided fluid collection versus hydrocele without mass or torsion. Complicated UTI/Cystitis Recent admission with ESBL UTI/bacteremia Blood cultures NTD Follow urine cultures IV ertapenem ID consultation Epididymoorchitis/hydrocele Antibiotics as above Urology evaluation Diabetes Hold oral hypoglycemics ISS Incidental fatty liver Outpatient follow-up BPH Finasteride Ulcerative colitis Mesalamine DVT prophylaxis Full code Disposition admission anticipate at least 48 hours hospitalization History of Present Illness Chief Complaint: scrotal pain Primary Care Provider: Kim Olivera MD 74 male diabetes UTIs kidney stones Hydronephrosis BPH Arthritis femur fracture treated conservatively Ulcerative colitis who was recently admitted for ESBL E. coli bacteremia UTI and nephrolithiasis Status post lithotripsy And stent status post subsequent removal of stent and discharged reportedly on bactrim who presents with testicular pain over the past week that is progressively worsened, chills suprapubic discomfort and urinary incontinence. Workup in ED notable for leukocytosis. Lactate wnl. CT abdomen pelvis with cystitis and nonobstructing left-sided stone. Scrotal ultrasound notable for epididymal orchitis and complex right-sided fluid collection versus hydrocele without mass or torsion. No hematuria Or other symptoms, nausea vomiting fevers lightheadedness shortness of breath or any other symptoms. ED physician discussed the case with urologist who will see in consultation . Urologist reportedly does not feel the fluid collection needs to be drained. Allergies Allergy/AdvReac Type Severity Reaction Status Date / Time ciprofloxacin [Cipro] Allergy Unknown PER PT Verified 02/18/25 05:50 "QUIT WORKING FOR UTI'S". sulfamethoxazole Allergy Unknown PER PT Verified 02/18/25 05:50 [From Bactrim] "QUIT WORKING FOR UTI'S". trimethoprim [From Bactrim] Allergy Unknown PER PT Verified 02/18/25 05:50 "QUIT WORKING FOR UTI'S". Home Medications Medication Instructions Recorded Confirmed Type blood sugar diagnostic 08/23/21 02/04/25 History lancets 08/23/21 02/04/25 History mecobalamin (vitamin B12) 1,000 1,000 mcg PO QPM 08/23/21 03/15/25 History mcg chewable tablet pravastatin 20 mg tablet 20 mg PO HS 08/23/21 03/15/25 History aspirin 81 mg chewable tablet 81 mg PO Q OTHER DAY 11/07/24 03/15/25 History (Aspirin Childrens) mesalamine 1.2 gram tablet,delayed 2.4 g PO BID 11/07/24 03/15/25 History release metformin 500 mg tablet,extended 500 mg PO BID 11/07/24 03/15/25 History release 24 hr semaglutide 0.25 mg or 0.5 mg (2 0.5 mg subcut WK 11/07/24 03/15/25 History mg/3 mL) subcutaneous pen injector (Ozempic) inulin 2 gram chewable tablet 4 g PO QAM 01/13/25 03/15/25 History (Prebiotic Fiber) bisacodyl 10 mg rectal suppository 10 mg WA DAILY PRN Constipation 02/04/25 03/15/25 History finasteride 5 mg tablet 5 mg PO QPM #90 tabs 02/04/25 03/15/25 Rx Lactobacillus acidophilus 10 10,000 mmu cells PO QAM 02/11/25 03/15/25 History billion cell capsule (Probiotic) acetaminophen 500 mg tablet 500 mg PO TID PRN Pain 02/11/25 03/15/25 History (Tylenol Extra Strength) cholecalciferol (vitamin D3) 25 25 mcg PO HS 02/11/25 03/15/25 History mcg (1,000 unit) tablet (Vitamin D3) doxylamine succinate 25 mg tablet 25 mg PO HS 02/11/25 03/15/25 History vitamin E succinate 268 mg (400 268 mg PO QAM 02/11/25 03/15/25 History unit) tablet ibuprofen 200 mg tablet 200 mg PO Q6H PRN Pain 03/15/25 03/15/25 History Past Med/Surg History Problem List (Updated 03/15/25 @ 08:38 by Idris Mendoza MD) Acute pain in scrotum (Acute) Sepsis (Acute) UTI (urinary tract infection) (Acute) E coli bacteremia HTN (hypertension) Painful penis Hydronephrosis (Acute) Ureterolithiasis (Acute) Complicated urinary tract infection (Acute) Hydroureteronephrosis Bilateral ureteral calculi Tinnitus of right ear Erectile dysfunction BPH (benign prostatic hyperplasia) Arthritis Kidney stones Epididymal cyst Medical History Type 2 diabetes mellitus Generalized weakness since sepsis early January 2025. has in-home physical therapy and home exercises History of recent hospitalization at [facility] end of December 2024 and early January 2025 - complicated UTI + sepsis. Hx of colonic polyps Ulcerative colitis Indwelling Hopper catheter present Hx of sepsis end of December 2024 treated at [facility] emergency room and inpatient. 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) History of right hip replacement ~2000 History of back surgery L4 discectomy Hx of appendectomy Family History Brother Prostate cancer both brothers Diabetes Heart disease Kidney stones Mother Breast cancer Family history of cervical cancer Father Diabetes Other No family history of adverse response to anesthesia Social History Smoking Status: Never smoker Second Hand Exposure: No; Do You Dip or Chew Tobacco: No; Hx Alcohol Use: Yes Alcohol type: beer Hx Substance Use: No Preferred Language: Estonian Communication Ability: Effective Manager Customer Service Required: No Beliefs That Will Affect Care: None marital status: Current Living Situation: Spouse current occupational status: retired Feels Safe at Home: Yes Assistive Devices: Cane, Walker and Wheelchair Review of Systems Review of Systems: Negative except as in HPI Physical Exam Physical Exam: PHYSICAL EXAMINATION: GENERAL: Awake, mildly uncomfortable-appearing, in no distress HENT: Normocephalic, atraumatic. Oropharynx unremarkable. EYES: Normal conjunctiva. Sclera non-icteric. NECK: Inspection normal. Non-tender. Supple. No nuchal rigidity. FROM. No masses. RESPIRATORY: Clear to auscultation. No wheezes. No rales. Normal respiratory effort. CARDIAC: Tachycardic rate. Normal rhythm. No murmurs. No rubs. Extremities warm and well perfused. Pulses equal. No JVD. GI: Soft, non-distended. Suprapubic tenderness to palpation. No rebound or gu arding. No masses. RECTAL: Deferred. : No penile discharge noted. There is moderate scrotal swelling which seems to be worse on the right. Scrotal erythema present. Testicular tenderness present bilaterally. MUSCULOSKELETAL: Atraumatic. Chest examination reveals no tenderness. The back is symmetrical on inspection without obvious abnormality. There is no CVA tenderness to palpation. No joint edema. LOWER EXTREMITIES: Calves are equal size bilaterally and non-tender. No edema. No discoloration. NEURO: Normal sensorium. No sensory or motor deficits noted. SKIN: No rash or jaundice noted. Results & Data Results & Data Vital Signs (Past 12 Hours) Vital Signs Temp Pulse Pulse Resp BP BP Pulse Ox 03/15/25 13:00 93 H 23 110/64 91 03/15/25 12:33 93 H 03/15/25 12:30 95 H 22 115/68 94 03/15/25 12:00 96 H 18 112/72 96 03/15/25 11:45 100 H 26 H 112/72 94 03/15/25 11:36 99 H 16 124/73 95 03/15/25 11:06 97 H 18 113/66 97 03/15/25 10:30 97 H 18 97/70 L 94 03/15/25 10:15 101 H 24 115/65 94 03/15/25 10:00 99 H 23 116/68 93 03/15/25 09:30 100 H 18 125/75 96 03/15/25 08:30 103 H 22 102/70 94 03/15/25 08:26 94 03/15/25 08:16 101 H 03/15/25 07:58 36.9 C 109 H 16 123/75 93 O2 Del Method 03/15/25 13:00 03/15/25 12:33 03/15/25 12:30 03/15/25 12:00 Room Air 03/15/25 11:45 Room Air 03/15/25 11:36 Room Air 03/15/25 11:06 Room Air 03/15/25 10:30 Room Air 03/15/25 10:15 Room Air 03/15/25 10:00 Room Air 03/15/25 09:30 Room Air 03/15/25 08:30 Room Air 03/15/25 08:26 Room Air 03/15/25 08:16 03/15/25 07:58 Room Air Laboratory Results Abnormal Labs 03/15/25 03/15/25 08:09 08:58 WBC 16.15 H RBC 3.74 L Hgb 11.9 L Hct 35.4 L RDW Std Deviation 47.3 H Neut # (Auto) 12.19 H Yancey # (Auto) 2.34 H Glucose 164 H Alkaline Phosphatase 128 H Urine Appearance Cloudy A Urine pH 8.0 H Urine Protein 2+ H Urine Blood 2+ H Ur Leukocyte Esterase 3+ H Urine WBC (Auto) >50 H Urine RBC (Auto) 11-20 H Urine Bacteria (Auto) 4+ H Diagnostic Findings Abdomen/Pelvis CT 03/15/25 08:20 CT SCAN OF THE ABDOMEN AND PELVIS WITH IV CONTRAST CLINICAL HISTORY: Lower abdominal pain. Scrotal pain and swelling. COMPARISON STUDY: Abdominal CT dated 01/28/2025 TECHNIQUE: Following the IV administration of 94 cc of Optiray 320, CT scan of the abdomen and pelvis is performed from the lung bases to the proximal femora. Images are reviewed in the axial, sagittal, and coronal planes. IV contrast was administered without complication. A dose lowering technique was utilized adhering to the principles of ALARA. CT DOSE: 1516.49 mGy.cm FINDINGS: Lung bases: The heart is mildly enlarged and without pericardial effusion. There is coronary atherosclerosis. The lung bases are clear noting bibasilar scarring/atelectasis. Liver: The contrast-enhanced liver is enlarged, measuring 24 cm in length. Attenuation is diminished indicating steatosis. There is no intrahepatic biliary ductal dilatation. The hepatic veins and portal veins are patent. Gallbladder: There are calcified gallstones with no CT evidence of acute cholecystitis. Spleen: Normal in size and attenuation. Pancreas: Unremarkable. Adrenal glands: Unremarkable. Kidneys: The contrast enhanced kidneys are normal in size and without hydronephrosis. The kidneys enhance symmetrically. A 3 mm nonobstructing calculus is seen in the left lower pole. No right renal calculi are identified on this contrast-enhanced examination and no ureteral stone is seen. There is a 4.8 cm left renal cyst. Additional scattered subcentimeter cortical hypodensities also likely represent cysts but are too small for definitive characterization. Abdominal vasculature: The abdominal aorta is normal in course and caliber noting moderate atherosclerotic calcification. Bowel: There is mild clonic diverticulosis without CT evidence of acute diverticulitis. No bowel obstruction is seen. [id number] fecal retention is noted throughout the colon. The appendix is not identified and reported surgically absent. Peritoneum: There is no intraperitoneal free air or abdominal ascites. There is a fat-containing umbilical hernia. Lymphadenopathy: None. Pelvic viscera: Evaluation of the pelvis is degraded by streak artifact from a right hip arthroplasty. The bladder is largely decompressed around a Hopper catheter. The bladder wall is thickened and hyperemic with surrounding inflammation. The prostate gland is mildly enlarged and heterogeneous. Skeletal structures: The skeletal structures are osteopenic. There is moderate to advanced cervical spondylosis. No lytic or blastic lesions are seen. A right hip arthroplasty is in place. There is a subacute/healing fracture of the lower sacrum, best seen on axial image #308. IMPRESSION: 1. Findings suggest cystitis. Correlate with clinical findings and urinalysis. 2. Cholelithiasis. 3. Left-sided nephrolithiasis. 4. The liver is enlarged and mildly steatotic. 5. Mild cardiomegaly. 6. Additional findings as above. ACT 112: Negative or not required by law. Electronically signed by: Rodríguez Sweeney M.D. 03/15/2025 9:54 AM Scrotum Ultrasound 03/15/25 08:20 ULTRASOUND TESTES AND SCROTUM CLINICAL HISTORY: Scrotal pain and swelling COMPARISON STUDY: Scrotal ultrasound dated 07/20/2021 TECHNIQUE: Real-time, grayscale, and color Doppler sonography of the testes and scrotum is performed. Images are reviewed in the transverse and longitudinal planes. FINDINGS: The testes are normal in size and homogeneous in echotexture. The right testis measures 4.5 x 3.0 x 3.1 cm and the left testis measures 3.6 x 2.2 x 3.1 cm. No intratesticular mass is seen. The right testis is markedly hyperemic on color imaging. Normal Doppler arterial and venous waveforms are identified in both testes. The right epididymal head appears enlarged and heterogeneous, and is markedly hyperemic. A 2.8 cm right epididymal head cyst is similar to previous. The left epididymal head is normal as imaged. There is a moderate and mildly complex right-sided scrotal fluid collection versus hydrocele with an estimated volume of 26 cc. There is trace left-sided hydrocele. No varicocele is identified. IMPRESSION: 1. The right testicle and epididymis are markedly hyperemic, typical for epididymoorchitis. 2. No testicular mass is seen and there is no sonographic evidence of testicular torsion of the time of examination. 3. There is a complex right-sided fluid collection versus hydrocele. The sterility of this fluid cannot be assessed by imaging. 4. The left testis is normal as imaged. ACT 112: Negative or not required by law. Electronically signed by: Rodríguez Sweeney M.D. 03/15/2025 9:44 AM PG Care Time/CCT Total # of Minutes Spent Total Time Spent with Patient: Total time spent is greater than 50% in coordination of care (as documented) at patient's floor/unit and/or counseling patient: Coding Level of Care Code 71303 INT INP/OBS CARE 2/55MIN Diagnoses Acute pain in scrotum N50.82 UTI (urinary tract infection) N39.0 Urinary tract infection type: acute cystitis E coli bacteremia R78.81; B96.20 (2) UTI (urinary tract infection) Urinary tract infection type: acute cystitis
[2025-03-15] MEDS ORDERED: PHARMACY GLYCEMIC MGMT CONSULT PRN (13:45)
[2025-03-15] MEDS: LACTATED RINGER'S 1,000 ML IV SCH (14:20)
--- NOTE | 2025-03-15 14:26 | Pharmacy Report ---
Pharmacy Glycemic Short Note 2 - Date of Service March 15, 2025 - Glycemic Short BSG Results (Last 24 hours): 03/15/25 08:09 Glucose 164 H OUTPATIENT ANTIDIABETIC REGIMEN: * metformin 1 g PO BIDM * Ozempic 0.5 mg SC weekly (Sundays) HbA1c: 7.1% (11/08/24) ASSESSMENT: * 74 yo M known to pharmacy glycemic service from recent admission with ESBL UTI/bacteremia, complicated UTI/Cystitis, started on IV ertapenem, ID Consult. * Will begin with basal bolus insulin and titrate to goal blood sugar. PLAN FOR INPATIENT GLYCEMIC CONTROL: * Hold outpatient diabetes medications * Basal insulin * Lantus 5 units SQ HS for BSG 160mg/dl or greater * Bolus insulin * NovoLog per scale ACHS or Q6hrs while NPO * Goal Range: Low 110 mg/dL - High 140 mg/dL * Correction Factor: 25 mg/dL/unit * Nutritional / Prandial insulin per carb ratio of 1 unit per 9 grams CHO consumed
[2025-03-15] MEDS ORDERED: GLUCOSE 40% GEL 15 GM TUBE PO PRN (14:30)
[2025-03-15] MEDS ORDERED: GLUCAGON FOR INJ 1 MG VIAL SQ PRN (14:30)
[2025-03-15] MEDS ORDERED: CARBOHYDRATES FOR HYPOGLYCEMIA PO PRN (14:30)
[2025-03-15] MEDS ORDERED: GLUCOSE 10 TAB/TUBE PO PRN (14:30)
[2025-03-15] MEDS ORDERED: DEXTROSE 50% 50 ML SYRINGE IV PRN (14:30)
[2025-03-15] MEDS ORDERED: POLYETHYLENE (MIRALAX) 17 GM PACK PO PRN (17:29)
[2025-03-15] MEDS ORDERED: ALUMINUM/MAGNESIUM SUSP 30 ML UDC PO PRN (17:29)
[2025-03-15] MEDS ORDERED: ACETAMINOPHEN 325 MG TAB PO PRN (17:29)
[2025-03-15] MEDS ORDERED: ACETAMINOPHEN 500 MG TAB PO PRN (17:29)
[2025-03-15] MEDS ORDERED: IBUPROFEN 200 MG TAB PO PRN (17:29)
[2025-03-15 18:34] LABS: Hematocrit (blood only) 34.0 % (42.0-52.0); Hemoglobin 11.0 g/dl (14.0-18.0); Mean Corpuscular Hemoglobin 31.2 pg (25.0-34.0); Mean Corpuscular Volume 96.3 fL (80.0-100.0); Platelet Count 208 K/uL (130-400); RDW Standard Deviation 49.3 fL (36.4-46.3); Red Blood Count 3.53 M/uL (4.70-6.10); White Blood Count 13.40 K/ul (4.8-10.8)
[2025-03-15] MEDS: INSULIN ASPART PER UNIT CHARGE SC SCH (18:35)
[2025-03-15] MEDS: HEPARIN SOD 5,000 UNIT/0.5 ML VIAL SQ SCH (18:44)
[2025-03-15] MEDS: ASPIRIN 81 MG ECTAB PO SCH (18:45)
[2025-03-15 18:52] LABS: Alanine Aminotransferase 24.0 U/L (7-52); Albumin Globulin Ratio 0.8 (0.9-2); Alkaline Phosphatase 113.0 U/L (34-104); Anion Gap 8.0 (3-11); Bilirubin,Total 0.5 mg/dl (0.2-1.0); Blood Urea Nitrogen 9.0 mg/dl (6-23); Calcium 9.0 mg/dl (8.6-10.3); Carbon Dioxide 25.0 mmol/L (21-32); Chloride 105.0 mmol/L (98-107); Creatinine Clr Calc Pharmacy 126.6 ml/min; Globulin 4.0 gm/dl (2.5-4.0); Glucose 128.0 mg/dl (70-99(Fasting)); Potassium 3.7 mmol/L (3.5-5.1); Sodium 138.0 mmol/L (136-145); Total Protein 7.3 gm/dl (6.0-8.3)
[2025-03-15] MEDS: MELATONIN 3 MG TAB PO SCH (21:07)
[2025-03-15] MEDS: CYANOCOBALAMIN (B-12) 500 MCG TABLET PO SCH (21:07)
[2025-03-15] MEDS: FINASTERIDE 5 MG TAB PO SCH (21:07)
[2025-03-15] MEDS: PRAVASTATIN SOD 20 MG TAB PO SCH (21:08)
[2025-03-15] MEDS: LANTUS PER UNIT CHARGE SC SCH (21:29)
[2025-03-16 01:52] LABS: Hematocrit (blood only) 31.9 % (42.0-52.0); Hemoglobin 10.5 g/dl (14.0-18.0); Mean Corpuscular Hemoglobin 31.8 pg (25.0-34.0); Mean Corpuscular Volume 96.7 fL (80.0-100.0); Platelet Count 199 K/uL (130-400); RDW Standard Deviation 49.2 fL (36.4-46.3); Red Blood Count 3.30 M/uL (4.70-6.10); White Blood Count 11.35 K/ul (4.8-10.8)
[2025-03-16 02:08] LABS: Alanine Aminotransferase 25.0 U/L (7-52); Albumin Globulin Ratio 0.8 (0.9-2); Alkaline Phosphatase 106.0 U/L (34-104); Anion Gap 7.0 (3-11); Bilirubin,Total 0.5 mg/dl (0.2-1.0); Blood Urea Nitrogen 10.0 mg/dl (6-23); Calcium 8.9 mg/dl (8.6-10.3); Carbon Dioxide 26.0 mmol/L (21-32); Chloride 105.0 mmol/L (98-107); Creatinine Clr Calc Pharmacy 115.6 ml/min; Globulin 3.8 gm/dl (2.5-4.0); Glucose 122.0 mg/dl (70-99(Fasting)); Potassium 4.0 mmol/L (3.5-5.1); Sodium 138.0 mmol/L (136-145); Total Protein 6.9 gm/dl (6.0-8.3)
[2025-03-16] MEDS: ERTAPENEM 1000MG 1,000 MG/10 ML SYR IV SCH (08:44)
[2025-03-16] MEDS: CALCIUM POLYCARBOPHIL 625MG TAB PO SCH (08:46)
[2025-03-16] MEDS: ADVANCED PROBIOTIC 625 MG CAPSULE PO SCH (08:46)
[2025-03-16] MEDS: TOCOPHERYL, DL-ALPHA 400 UNITS 180 MG CAP PO SCH (08:46)
--- NOTE | 2025-03-16 11:01 | Urology Consultation ---
Date of Consultation March 16, 2025 Assessment & Plan (1) Epididymo-orchitis, acute: (2) Acute UTI (urinary tract infection): (3) Acute pain in scrotum: (4) Sepsis: (5) UTI (urinary tract infection): (6) Hydronephrosis: (7) Ureterolithiasis: (8) Hydroureteronephrosis: (9) BPH (benign prostatic hyperplasia): (10) Diabetes mellitus, type 2: (11) Generalized weakness: (12) Hx of bronchitis: Plan Patient with development of likely epididymal orchitis more severe on the right. Patient had undergone Rezum procedure and stone treatment with Dr. Cruz at the end of January. Patient is subsequently being followed. Developed UTI-like symptoms. Had been placed on antibiotics but had increasing issues possibly due to resistance. Noticed significant swelling of the scrotum with increasing bother with pain and discomfort. Patient presented to the ER where he was evaluated. Had undergone CT imaging as well as scrotal ultrasound imaging was reviewed interpreted by myself. Does have findings of marked edema and likely reactive hydrocele with signs of epididymal orchitis more severe on the right. No sign of obstruction or hydronephrosis on current imaging of the kidney. Patient independently assessed, examined, interviewed, and evaluated. Agree with note as above. Patient's vitals and labs were all reviewed. Pertinent values in the HPI and plan section. Imaging was reviewed interpreted by myself. Agree with read. Vitals were reviewed. Discussed findings extensively with patient and family. Reviewed with ER team and consulting physicians/team were going to admit patient for observation on IV antibiotics with the hospitalist. Patient's complicated medical and surgical history was reviewed and summarized above. Patient's surgical, medical, social, and family history were all reviewed with pertinent values as above. Discussed patient's current diagnosis as well as concerns and issues. Reviewed different options moving forward. Discussed potential risks and benefits as well as possible options and concerns. Reviewed potential surgical options and interventions. Discussed potential issues and concerns related to intervention. Risk and benefits were discussed extensively with patient and any available family. Discussed potential risks related to anesthesia. Discussed risks of bleeding infection and injury. Reviewed extensively options for management. Did discuss small percentage of people with infections after urologic procedure. Did discuss Lisbeth possibility of epididymoorchitis. Discussed possible prostatitis as well. Discussed location of medication and management discussed IV antibiotics until culture results are available. Can likely de-escalate once results are ready. Long conversation of conservative management. Discussed scrotal support when ambulating, Scrotal elevation when sitting/laying flat, Ice (20 mins on/20 mins off) when acutely swollen or tender, Heating Pad (20 mins on/20 mins off) when sore, and avoidance of injury/protection when active. Reviewed extensively possible need for surgical intervention at this point does not appear to have abscess formation or other issue likely is dealing with a reactive hydrocele based on imaging interpretation by myself. Reviewed options moving forward. Will plan to observe. Patient can likely follow-up with Dr. Cruz. Patient's complicated medical surgical history is reviewed and summarized above all imaging was reviewed interpreted by myself all labs and vitals reviewed with pertinent values in the HPI or plan section. History of Present Illness Attending Physician: Siddhartha Haynes MD History of Present Illness New consultation for patient with significant scrotal likely epididymal this. Patient had increasing UTI/Pyelo, discomfort, and ill feelings. Had a procedure with . Placed on antibiotics post procedure however increasing issues. Found have sudden swelling of the scrotum with increasing pain about. Was having increasing urgency frequency and bother with urination. Pain into the scrotum which is throbbing and aching at times. Had noticed considerable increase in volume on especially the area around the scrotum. Patient developed sudden onset of pain into flank going down and radiating into groin and back in waves comes and goes. Can be severe at times. Patient had undergone Rezum procedure and stone treatment with Dr. Cruz at the end of January. Discussed and reviewed patient's family history for any history of issues, infections, and disease. Also, discussed patient's medical/surgery history especially related to any history of urinary issues or stone disease. Patient's lab work and vitals were all reviewed. Temperature currently stable at 36.7 with no significant fever. Was having some mild low blood pressure but no considerable issues. Additionally was having mild tachycardia but this is resolved with most recent heart rate of 85 and blood pressure 114/69. Oxygen saturation were 92% on room air. White count is elevated 11.35. Creatinine is at 0.69. Hemoglobin 10.5. Patient was admitted and is undergoing observation with broad spectrum IV antibiotics. Allergies Allergy/AdvReac Type Severity Reaction Status Date / Time ciprofloxacin [Cipro] Allergy Unknown PER PT Verified 02/18/25 05:50 "QUIT WORKING FOR UTI'S". sulfamethoxazole Allergy Unknown PER PT Verified 02/18/25 05:50 [From Bactrim] "QUIT WORKING FOR UTI'S". trimethoprim [From Bactrim] Allergy Unknown PER PT Verified 02/18/25 05:50 "QUIT WORKING FOR UTI'S". Home Medications Medication Instructions Recorded Confirmed Type blood sugar diagnostic 08/23/21 02/04/25 History lancets 08/23/21 02/04/25 History mecobalamin (vitamin B12) 1,000 1,000 mcg PO QPM 08/23/21 03/15/25 History mcg chewable tablet pravastatin 20 mg tablet 20 mg PO HS 08/23/21 03/15/25 History aspirin 81 mg chewable tablet 81 mg PO Q OTHER DAY 11/07/24 03/15/25 History (Aspirin Childrens) mesalamine 1.2 gram tablet,delayed 2.4 g PO BID 11/07/24 03/15/25 History release metformin 500 mg tablet,extended 500 mg PO BID 11/07/24 03/15/25 History release 24 hr semaglutide 0.25 mg or 0.5 mg (2 0.5 mg subcut WK 11/07/24 03/15/25 History mg/3 mL) subcutaneous pen injector (Ozempic) inulin 2 gram chewable tablet 4 g PO QAM 01/13/25 03/15/25 History (Prebiotic Fiber) bisacodyl 10 mg rectal suppository 10 mg PA DAILY PRN Constipation 02/04/25 03/15/25 History finasteride 5 mg tablet 5 mg PO QPM #90 tabs 02/04/25 03/15/25 Rx Lactobacillus acidophilus 10 10,000 mmu cells PO QAM 02/11/25 03/15/25 History billion cell capsule (Probiotic) acetaminophen 500 mg tablet 500 mg PO TID PRN Pain 02/11/25 03/15/25 History (Tylenol Extra Strength) cholecalciferol (vitamin D3) 25 25 mcg PO HS 02/11/25 03/15/25 History mcg (1,000 unit) tablet (Vitamin D3) doxylamine succinate 25 mg tablet 25 mg PO HS 02/11/25 03/15/25 History vitamin E succinate 268 mg (400 268 mg PO QAM 02/11/25 03/15/25 History unit) tablet ibuprofen 200 mg tablet 200 mg PO Q6H PRN Pain 03/15/25 03/15/25 History Patient History Medical History Type 2 diabetes mellitus Generalized weakness since sepsis early January 2025. has in-home physical therapy and home exercises History of recent hospitalization at [facility] end of December 2024 and early January 2025 - complicated UTI + sepsis. Hx of colonic polyps Ulcerative colitis Indwelling Hopper catheter present Hx of sepsis end of December 2024 treated at [facility] emergency room and inpatient. 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) History of right hip replacement ~1999 History of back surgery L4 discectomy Hx of appendectomy Family History Brother Prostate cancer both brothers Diabetes Heart disease Kidney stones Mother Breast cancer Family history of cervical cancer Father Diabetes Other No family history of adverse response to anesthesia Social History Smoking Status: Former smoker Smoking End Date: 50 years ago.; Second Hand Exposure: No; Do You Dip or Chew Tobacco: No; Hx Alcohol Use: Yes Alcohol type: beer Hx Substance Use: No Preferred Language: Czech Communication Ability: Effective Linoleum Layer Required: No Beliefs That Will Affect Care: None marital status: Current Living Situation: Spouse current occupational status: retired Other Information That Helps Us Care for You: No Feels Safe at Home: Yes Safety Concerns: Feels Safe At This Time Assistive Devices: Walker Review of Systems Review of Systems: All systems reviewed & are unremarkable except as noted in HPI & below Physical Exam Physical Exam: General: Alert and oriented x 3 in no acute distress. Advanced age. HEENT: Normocephalic Atraumatic. Inspection normal. Cranial Nerves 2-12 Grossly intact. Nares are clear. Neck is supple. Normal inspection of face. Normal inspection of neck. Neurologic: No deficits on inspection. Baseline for motor function and sensory. Psychologic: Normal affect. Respiratory: Nonlabored. No use of accessory muscles. No tachypnea or dyspnea. Cardiovascular: No tachycardia Skin: [place] and Dry. No rashes or visible lesions. Extremities: Moving without issues. No motor deficits on inspection Lymphatics: No edema Abdomen: Soft Non-distended. No rebound or guarding. : Marked scrotal swelling. Results & Data Vital Signs (Past 12 Hours) Vital Signs Temp Pulse Resp BP Pulse Ox O2 Del Method 03/16/25 10:34 16 92 Room Air 03/16/25 07:00 36.7 C 85 14 114/69 91 Room Air 03/15/25 23:38 36.6 C 88 18 119/69 92 Room Air PG Care Time/CCT Total # of Minutes Spent Total Time Spent with Patient: Total time spent is greater than 50% in coordination of care (as documented) at patient's floor/unit and/or counseling patient: Coding Level of Care Code 75282 INT INP/OBS CARE 3/75MIN Diagnoses Epididymo-orchitis, acute N45.3 Acute UTI (urinary tract infection) N39.0 Acute pain in scrotum N50.82 Sepsis A41.9 UTI (urinary tract infection) N39.0 Urinary tract infection type: acute cystitis Hydronephrosis Q62.11 Hydronephrosis type: with ureteropelvic junction obstruction Ureterolithiasis N20.1 Hydroureteronephrosis N13.30 BPH (benign prostatic hyperplasia) N40.0 Diabetes mellitus, type 2 E11.9 Generalized weakness R53.1 Hx of bronchitis Z87.09 (5) UTI (urinary tract infection) Urinary tract infection type: acute cystitis (6) Hydronephrosis Hydronephrosis type: with ureteropelvic junction obstruction Qualified Code(s): Q62.11 - Congenital occlusion of ureteropelvic junction
[2025-03-16] MEDS: MESALAMINE 1.2 GM PO SCH (11:17)
--- NOTE | 2025-03-16 12:09 | Hospitalist Progress Note ---
Date of Service March 16, 2025 Assessment & Plan (1) Acute pain in scrotum: (2) UTI (urinary tract infection): (3) E coli bacteremia: Plan 74 male diabetes UTIs kidney stones Hydronephrosis BPH Arthritis femur fracture treated conservatively Ulcerative colitis Hyperlipidemia who was recently admitted for ESBL E. coli bacteremia UTI and nephrolithiasis Status post lithotripsy And stent status post subsequent removal of stent and discharged reportedly on bactrim who presents with testicular pain over the past week that is progressively worsened, chills suprapubic discomfort and urinary incontinence. #UTI/epididymo-orchitis Recent admission w/ ESBL UTI/bacteremia, was discharged on 02/23/2025 on Bactrim. Re-presented secondary to testicular pain s/p Hopper placement in ED CTAP: cystitis, left sided nephrolithiasis. Scrotal US: right testicle & epididymis are markedly hyperemic, typical for epididymoorchitis. no testicular mass seen & no sonographic evidence of testicular torison. complex R sided fluid collection vs hydrocele. CBC w/ leukocytosis (downtrending), hgb stable BMP w/ stable renal function & electrolytes UA + for infx, UC consistent w/ E. Coli thus far. Procal neg; BC negative at 24 hours Urology consulted --> recommending observation & supportive care for now. Continue IV ertapenem, follow up sensitivities of UC. Can apply ice as needed to scrotum, recommending scrotal support when ambulating & scrotal elevation when sitting/lying flat. Continue Finasteride #Type 2 DM On metformin, Ozempic outpatient -hold while inpatient A1c 02/20/2025: 6.4% ISS, adjust as necessary #Ulcerative Colitis no recent flare ups Continue Mesalamine. DVT prophylaxis: Heparin Full code Admission and Anticipated Discharge Date Admission Date: March 15, 2025 Supervising Physician Co-Signing Physician Notes The patient was not seen by me. The chart was reviewed. Case discussed with FERMIN De Oliveira. Agree with assessment and plan Subjective Aiden seen & examined this morning. He reports testicular pain but has been icing this. Denies any additional symptoms including abdominal pain, N/V, CP, or SOB. Physical Exam Constitutional: WD/WN, vitals as above Eyes: PERRL, conjunctivae normal, anicteric sclerae Respiratory: normal respiratory effort Skin: no rashes, warm and dry Neurologic: PERRL, EOMI, accommodation nl, no face palsy, no dysarthria Psychiatric: A+Ox3, euthymic affect Results & Data Results & Data Vital Signs (Past 12 Hours) Vital Signs Temp Pulse Resp BP Pulse Ox O2 Del Method 03/16/25 10:34 16 92 Room Air 03/16/25 07:00 36.7 C 85 14 114/69 91 Room Air PG Care Time/CCT Total # of Minutes Spent Total Time Spent with Patient: Total time spent is greater than 50% in coordination of care (as documented) at patient's floor/unit and/or counseling patient: Coding Level of Care Code 22311 SUB INP/OBS CARE 2/35MIN Diagnoses Acute pain in scrotum N50.82 UTI (urinary tract infection) N39.0 Urinary tract infection type: acute cystitis E coli bacteremia R78.81; B96.20 (2) UTI (urinary tract infection) Urinary tract infection type: acute cystitis
[2025-03-16] MEDS: ONDANSETRON INJ 2 MG/ML 2 ML VIAL IV PRN (16:20)
[2025-03-17 06:47] LABS: Hematocrit (blood only) 32.6 % (42.0-52.0); Hemoglobin 11.3 g/dl (14.0-18.0); Mean Corpuscular Hemoglobin 32.1 pg (25.0-34.0); Mean Corpuscular Volume 92.6 fL (80.0-100.0); Platelet Count 246 K/uL (130-400); RDW Standard Deviation 44.6 fL (36.4-46.3); Red Blood Count 3.52 M/uL (4.70-6.10); White Blood Count 10.20 K/ul (4.8-10.8)
[2025-03-17 07:42] LABS: Anion Gap 10.0 (3-11); Bilirubin,Total 0.5 mg/dl (0.2-1.0); Calcium 8.9 mg/dl (8.6-10.3); Carbon Dioxide 24.0 mmol/L (21-32); Chloride 102.0 mmol/L (98-107); Potassium 3.9 mmol/L (3.5-5.1); Sodium 136.0 mmol/L (136-145)
[2025-03-17 07:48] LABS: Alanine Aminotransferase 26.0 U/L (7-52); Albumin Globulin Ratio 0.8 (0.9-2); Alkaline Phosphatase 132.0 U/L (34-104); Blood Urea Nitrogen 9.0 mg/dl (6-23); Creatinine Clr Calc Pharmacy 130.8 ml/min; Globulin 3.8 gm/dl (2.5-4.0); Glucose 138.0 mg/dl (70-99(Fasting)); Total Protein 7.0 gm/dl (6.0-8.3)
--- NOTE | 2025-03-17 10:35 | Hospitalist Progress Note ---
Date of Service March 17, 2025 Assessment & Plan (1) Acute pain in scrotum: (2) UTI (urinary tract infection): (3) E coli bacteremia: Plan 74 male with PMH of diabetes, UTIs, kidney stones, Hydronephrosis, BPH, Arthritis, femur fracture treated conservatively, Ulcerative colitis, H yperlipidemia, who was recently admitted for ESBL E. coli bacteremia UTI and nephrolithiasis s/p lithotripsy and stent s/p subsequent removal of stent and discharged on Bactrim. He presented with testicular pain x 1 week that progressively worsened, chills, suprapubic discomfort, and urinary incontinence. He had a Hopper catheter placed in the ED on admission. #UTI/epididymo-orchitis - CT A/P: cystitis, left sided nephrolithiasis - Scrotal US: right testicle & epididymis are markedly hyperemic, typical for epididymoorchitis. no testicular mass seen & no sonographic evidence of testicular torison. complex R sided fluid collection vs hydrocele - Leukocytosis now resolved - Urine culture grew ESBL E. coli, sensitive to Augmentin. Blood cultures negat mady > 48 hours - Urology consulted, recommended observation and supportive care for now - Continue IV ertapenem for now - Can apply ice as needed to scrotum, recommending scrotal support when ambu lating & scrotal elevation when sitting/lying flat - Continue Finasteride #Type 2 DM - A1c 02/20/2025: 6.4% - On metformin, Ozempic outpatient - hold while inpatient - SSI while admitted #Ulcerative Colitis - no recent flare ups. Continue Mesalamine DVT prophylaxis: Heparin Dispo: Continued inpatient stay for further IV antibiotics and therapy evaluations Updated at bedside Added antiemetic and constipation regimen Consulted PT/OT Admission and Anticipated Discharge Date Admission Date: March 15, 2025 Subjective Patient seen and evaluated at bedside with his present. He reports feeling very nauseous, though no vomiting - but has not had much significant oral intake today. He also feels constipated. He is passing gas. He denies abdominal pain. He denies pain or discomfort in his scrotum at this time. He has not been sleeping well. He is worried that his antibiotic course will be too short and result in the infection returning; reassurance provided. He feels very weak and states that he has not yet worked with therapy. No additional complaints or concerns at this time. Physical Exam Physical Exam: General: No acute distress, nondiaphoretic, well-developed, well-nourished. Skin: Warm, dry. No rashes or peripheral edema noted. Cardiac: Regular rate and rhythm without murmurs gallops or rubs. Pulm: Clear to auscultation bilaterally without wheezes, rales or rhonchi. Normal respiratory effort. 95% on room air. Abdominal: Soft, nontender, mildly distended. Bowel sounds present. : Significant scrotal swelling. Hopper catheter draining clear yellow urine. Neuro: A&O x3. No focal neurological deficits. Results & Data Results & Data Vital Signs (Past 12 Hours) Vital Signs Temp Pulse Resp BP BP Pulse Ox O2 Del Method 03/17/25 08:00 98.1 F 92 H 16 126/74 95 Room Air 03/16/25 23:44 98.1 F 96 H 16 136/76 91 Room Air Laboratory Results Reviewed CBC Reviewed CMP PG Care Time/CCT Total # of Minutes Spent Total Time Spent with Patient: Total time spent is greater than 50% in coordination of care (as documented) at patient's floor/unit and/or counseling patient: Coding Level of Care Code 95715 SUB INP/OBS CARE 3/50MIN Diagnoses Acute pain in scrotum N50.82 UTI (urinary tract infection) N39.0 Urinary tract infection type: acute cystitis E coli bacteremia R78.81; B96.20 (2) UTI (urinary tract infection) Urinary tract infection type: acute cystitis
[2025-03-17] MEDS ORDERED: MAGNESIUM HYDROXIDE SUSP 30 ML UDC PO PRN (10:36)
--- NOTE | 2025-03-17 14:19 | Pharmacy Report ---
Pharmacy Glycemic Sign Off Nt - Date of Service March 17, 2025 - Assessment & Plan ASSESSMENT: * Pharmacy was consulted by Dr Fritz on 03/15 for glycemic control and to write orders per [facility] inpatient glycemic control protocol. * Major changes made by pharmacy to antidiabetic regimen include: * added novolog scale * Patient has been receiving minimal insulin the last 24 hours. Patient refusing insulin today at lunch and breakfast (only would have received a couple units). Despite refusal of SSI blood sugars still reasonable and within goal. Will remove carb ratio. Would recommend adding in carb ratio again if blood sugars trending up and patient eating. PLAN FOR INPATIENT GLYCEMIC CONTROL: No changes needed to current regimen. * Hold basal * Continue NovoLog per scale ACHS/Q6hrs while NPO * Goal range = 110-160 mg/dl * CF = 30 mg/dl/unit * CR = 1 unit for ever -- g CHO consumed * Pharmacy is signing off of glycemic consult and will no longer be making adjustments to inpatient regimen. Please feel free to re-consult if needed. Thank you.
--- NOTE | 2025-03-17 15:46 | Urology Progress Note ---
Date of Service March 17, 2025 Assessment & Plan (1) Epididymo-orchitis, acute: (2) Acute UTI (urinary tract infection): Plan 74yo male admitted with epididymoorchitis and complicated UTI. Scrotal ultrasound imaging showed signs of right sided epididymoorchitis and likely raymond ctive right sided hydrocele. CT abdomen pelvis showed left-sided nephrolithiasis and findings suggestive of cystitis. He reports overall improvement today in scrotal/testicular pain and swelling Remains afebrile and hemodynamically stable Leukocytosis has resolved and creatinine normal Urine culture grew E. coli ESBL Blood cultures preliminary no growth x 48 hours Continues on IV ertapenem Hopper intact and draining appropriately- urine is clear yellow Continue supportive care and antibiotic therapy Can apply ice to scrotum and scrotal elevation as needed Urology will follow Plan reviewed with Dr. Ogden Admission and Anticipated Discharge Date Admission Date: March 15, 2025 Subjective Patient seen at bedside today. He is awake and resting in bed on arrival. No acute distress. Overall feels his right sided testicular/scrotal pain and swelling has improved from yesterday. Denies fever or chills. Hopper draining yellow urine. He does have concerns that his antibiotic course will be too short and his symptoms will return. Also reports constipation. Review of Systems Constitutional: as per Subjective / HPI Genitourinary: + as per Subjective / HPI Physical Exam Constitutional: no acute distress Respiratory: no respiratory distress and no labored breathing Neurologic: moves all extremities and awake Psychiatric: A+Ox3, euthymic affect Genitourinary: Hopper intact and draining yellow urine. Mild scrotal erythema and edema. Right testicle is enlarged and mildly tender on exam. No open areas or drainage. No crepitus or fluctuance. Results & Data Vital Signs (Past 12 Hours) Vital Signs Temp Pulse Pulse Resp BP Pulse Ox O2 Del Method 03/17/25 15:36 36.7 C 87 16 123/74 93 Room Air 03/17/25 12:05 36.6 C 87 16 138/75 95 Room Air 03/17/25 08:00 Room Air 03/17/25 08:00 36.7 C 92 H 16 126/74 95 Room Air PG Care Time/CCT Total # of Minutes Spent Total Time Spent with Patient: Total time spent is greater than 50% in coordination of care (as documented) at patient's floor/unit and/or counseling patient: Coding Level of Care Code 36705 SUB INP/OBS CARE 2MIN Diagnoses Epididymo-orchitis, acute N45.3 Acute UTI (urinary tract infection) N39.0
[2025-03-17] MEDS: PROCHLORPERAZINE MALEATE 5 MG TAB PO PRN (16:15)
[2025-03-17] MEDS: HYDROmorphone INJ 1 MG/ML SYRINGE IV PRN (20:48)
[2025-03-18 06:17] LABS: Hematocrit (blood only) 31.4 % (42.0-52.0); Hemoglobin 10.8 g/dl (14.0-18.0); Mean Corpuscular Hemoglobin 32.1 pg (25.0-34.0); Mean Corpuscular Volume 93.5 fL (80.0-100.0); Platelet Count 210 K/uL (130-400); RDW Standard Deviation 45.8 fL (36.4-46.3); Red Blood Count 3.36 M/uL (4.70-6.10); White Blood Count 8.83 K/ul (4.8-10.8)
--- NOTE | 2025-03-18 10:23 | Hospitalist Progress Note ---
Date of Service March 18, 2025 Assessment & Plan (1) Epididymo-orchitis, acute: (2) UTI (urinary tract infection): (3) Acute pain in scrotum: (4) Weakness: Plan 74 male with PMH of diabetes, UTIs, kidney stones, Hydronephrosis, BPH, Arthritis, femur fracture treated conservatively, Ulcerative colitis, Hyperlipidemia, who was recently admitted for ESBL E. coli bacteremia UTI and nephrolithiasis s/p lithotripsy and stent s/p subsequent removal of stent and discharged on Bactrim. He presented with testicular pain x 1 week that progressively worsened, chills, suprapubic discomfort, and urinary incontinence. He had a Hopper catheter placed in the ED on admission. #UTI | Epididymo-orchitis - CT A/P: cystitis, left sided nephrolithiasis - Scrotal US: right testicle & epididymis are markedly hyperemic, typical for epididymoorchitis. no testicular mass seen & no sonographic evidence of testicular torison. complex R sided fluid collection vs hydrocele - Leukocytosis now resolved - Urine culture grew ESBL E. coli, sensitive to Augmentin. Blood cultures negative > 48 hours - Urology consulted, recommended observation and supportive care for now - Continue IV ertapenem for now - Can apply ice as needed to scrotum, recommending scrotal support when ambulating & scrotal elevation when sitting/lying flat - Continue Finasteride #Generalized weakness | Subacute femur fracture - Fractured femur in October 2024, elected for conservative treatment. Has completed 8 weeks of NWB status - PT/OT consulted - recommend inpatient rehab #Type 2 DM - A1c 02/20/2025: 6.4% - On metformin, Ozempic outpatient - hold while inpatient - SSI while admitted #Ulcerative Colitis - no recent flare ups. Continue Mesalamine DVT prophylaxis: Heparin Dispo: Continued inpatient stay for further IV antibiotics. Will need rehab placement Discussed discharge planning with CM Admission and Anticipated Discharge Date Admission Date: March 15, 2025 Subjective Patient seen and evaluated at bedside. He reports "today is a good day!" His nausea from yesterday has completely resolved. He still has not moved his bowels but continues to pass gas. He feels like his scrotum continues to improve, noting less discomfort and swelling today. We discussed therapy's recommendation of rehab on discharge; he is agreeable. No additional complaints or concerns at this time. Physical Exam Physical Exam: General: No acute distress, nondiaphoretic, well-developed, well-nourished. Skin: Warm, dry. No rashes or peripheral edema noted. Cardiac: Well-perfused. Rate in 80s. Pulm: Normal respiratory effort. 93% on room air. Abdominal: Soft, nontender, mildly distended. Bowel sounds present. : Significant scrotal swelling is improving. Scrotum remains erythematous. Hopper catheter draining clear yellow urine. Neuro: A&O x3. No focal neurological deficits. Results & Data Results & Data Vital Signs (Past 12 Hours) Vital Signs Temp Pulse Pulse Resp BP Pulse Ox O2 Del Method 03/18/25 07:25 97.5 F L 82 16 106/69 93 Room Air 03/17/25 23:18 97.5 F L 83 18 112/69 94 Room Air Laboratory Results Reviewed CBC PG Care Time/CCT Total # of Minutes Spent Total Time Spent with Patient: Total time spent is greater than 50% in coordination of care (as documented) at patient's floor/unit and/or counseling patient: Coding Level of Care Code 13232 SUB INP/OBS CARE 3/50MIN Diagnoses Epididymo-orchitis, acute N45.3 UTI (urinary tract infection) N39.0 Urinary tract infection type: acute cystitis Acute pain in scrotum N50.82 Weakness R53.1 (2) UTI (urinary tract infection) Urinary tract infection type: acute cystitis
--- NOTE | 2025-03-18 12:08 | Urology Progress Note ---
Date of Service March 18, 2025 Assessment & Plan (1) Epididymo-orchitis, acute: (2) Acute UTI (urinary tract infection): Plan 74yo male admitted with epididymoorchitis and complicated UTI. Scrotal ultrasound imaging showed signs of right sided epididymoorchitis and likely raymond ctive right sided hydrocele. CT abdomen pelvis showed left-sided nephrolithiasis and findings suggestive of cystitis. Continues with overall improvement in scrotal/testicular pain and swelling Remains afebrile and hemodynamically stable Leukocytosis has resolved and creatinine normal Urine culture grew E. coli ESBL Blood cultures preliminary no growth x 48 hours Continues on IV ertapenem Maintain Hopper catheter for now, can arrange outpatient voiding trial or prior to discharge depending on clinical course Continue supportive care and antibiotic therapy Can apply ice to scrotum and scrotal elevation as needed Urology will sign off, please contact our service with any additional questions or concerns Admission and Anticipated Discharge Date Admission Date: March 15, 2025 Subjective Patient seen and examined at bedside this morning Overall feeling better Denies scrotal discomfort at present Reports right hip discomfort after doing PT, declines PT today Hopper draining clear urine No fever or chills Review of Systems Constitutional: as per Subjective / HPI Genitourinary: + as per Subjective / HPI Physical Exam Constitutional: no acute distress Respiratory: no respiratory distress and no labored breathing Neurologic: moves all extremities and awake Psychiatric: A+Ox3, euthymic affect Genitourinary: Hopper intact and draining yellow urine. Mild scrotal erythema and edema. Right testicle is enlarged and mildly tender on exam. No open areas or drainage. No crepitus or fluctuance. Results & Data Vital Signs (Past 12 Hours) Vital Signs Temp Pulse Resp BP Pulse Ox O2 Del Method 03/18/25 07:25 36.4 C L 82 16 106/69 93 Room Air PG Care Time/CCT Total # of Minutes Spent Total Time Spent with Patient: Total time spent is greater than 50% in coordination of care (as documented) at patient's floor/unit and/or counseling patient: Coding Level of Care Code 68592 SUB INP/OBS CARE 08/17MIN Diagnoses Epididymo-orchitis, acute N45.3 Acute UTI (urinary tract infection) N39.0
[2025-03-19 06:29] LABS: Hematocrit (blood only) 34.0 % (42.0-52.0); Hemoglobin 11.3 g/dl (14.0-18.0); Mean Corpuscular Hemoglobin 31.0 pg (25.0-34.0); Mean Corpuscular Volume 93.2 fL (80.0-100.0); Platelet Count 233 K/uL (130-400); RDW Standard Deviation 45.3 fL (36.4-46.3); Red Blood Count 3.65 M/uL (4.70-6.10); White Blood Count 7.97 K/ul (4.8-10.8)
[2025-03-19] MEDS: MAGNESIUM HYDROXIDE SUSP 30 ML UDC PO PRN (09:26)
--- NOTE | 2025-03-19 12:36 | Hospitalist Progress Note ---
"Date of Service March 19, 2025 Assessment & Plan (1) Epididymo-orchitis, acute: (2) UTI (urinary tract infection): (3) Acute pain in scrotum: (4) Weakness: Plan 74 male with PMH of diabetes, UTIs, kidney stones, Hydronephrosis, BPH, Arthritis, femur fracture treated conservatively, Ulcerative colitis, Hyperlipidemia, who was recently admitted for ESBL E. coli bacteremia UTI and nephrolithiasis s/p lithotripsy and stent s/p subsequent removal of stent and discharged on Bactrim. He presented with testicular pain x 1 week that progressively worsened, chills, suprapubic discomfort, and urinary incontinence. He had a Hopper catheter placed in the ED on admission. #UTI | Epididymo-orchitis - CT A/P: cystitis, left sided nephrolithiasis - Scrotal US: right testicle & epididymis are markedly hyperemic, typical for epididymoorchitis. no testicular mass seen & no sonographic evidence of testicular torison. complex R sided fluid collection vs hydrocele - Leukocytosis now resolved - Urine culture grew ESBL E. coli, sensitive to Augmentin. Blood cultures negative > 48 hours - Urology consulted - Continue IV ertapenem for now, will transition to Augmentin on discharge - Can apply ice as needed to scrotum, recommending scrotal support when ambulating & scrotal elevation when sitting/lying flat - Continue Finasteride #Generalized weakness | Subacute femur fracture - Fractured femur in October 2024, elected for conservative treatment. Has completed 8 weeks of NWB status - PT/OT consulted - recommend inpatient rehab #Type 2 DM - A1c 02/20/2025: 6.4% - On metformin, Ozempic outpatient - hold while inpatient - SSI while admitted #Ulcerative Colitis - no recent flare ups. Continue Mesalamine DVT prophylaxis: Heparin Dispo: Anticipate discharge to rehab tomorrow 03/20 Discussed discharge planning with Admission and Anticipated Discharge Date Admission Date: March 15, 2025 Subjective Patient seen and evaluated bedside. He reports that he still feels constipated. He continues to pass lots of gas. We discussed trying a suppository versus lots of MiraLAX versus continuing the current regimen and waiting. He does not want large quantities of MiraLAX or suppository. He is hopeful for discharge to [facility] sooner than later. He denies any scrotal pain at this time. No additional plaints or concerns at this time. Physical Exam Physical Exam: General: No acute distress, nondiaphoretic, well-developed, well-nourished. Skin: Warm, dry. No rashes or peripheral edema noted. Cardiac: Well-perfused. Rate in 80s. Pulm: Normal respiratory effort. 92% on room air. Abdominal: Soft, nontender, mildly distended. Bowel sounds present. : Scrotal swelling is improving. Scrotum remains erythematous. Hopper catheter draining clear yellow urine. Neuro: A&O x3. No focal neurological deficits. Results & Data Results & Data Vital Signs (Past 12 Hours) Vital Signs Temp Pulse Resp BP Pulse Ox O2 Del Method 03/19/25 07:56 98.1 F 94 H 15 116/78 91 Room Air 03/19/25 07:25 Room Air Laboratory Results Reviewed CBC PG Care Time/CCT Total # of Minutes Spent Total Time Spent with Patient: Total time spent is greater than 50% in coordination of care (as documented) at patient's floor/unit and/or counseling patient: Coding Level of Care Code 73730 SUB INP/OBS CARE 3/50MIN Diagnoses Epididymo-orchitis, acute N45.3 UTI (urinary tract infection) N39.0 Urinary tract infection type: acute cystitis Acute pain in scrotum N50.82 Weakness R53.1 (2) UTI (urinary tract infection) Urinary tract infection type: acute cystitis"
[2025-03-19 15:45] VITALS: RESP 16
[2025-03-20 07:28] VITALS: PULSE 78; TEMP 97.7; O2SAT 92
[2025-03-20 09:31] VITALS: BP 116/78
--- NOTE | 2025-03-20 17:31 | Discharge Summary ---
"Discharge Summary Date of Service March 20, 2025 Principal Dx & Hospital Course #1 = Principal Diagnosis (1) Epididymo-orchitis, acute: (2) UTI (urinary tract infection): (3) Acute pain in scrotum: (4) Weakness: Plan 74 male with PMH of diabetes, UTIs, kidney stones, Hydronephrosis, BPH, Arthritis, femur fracture treated conservatively, Ulcerative colitis, Hyperlipidemia, who was recently admitted for ESBL E. coli bacteremia UTI and nephrolithiasis s/p lithotripsy and stent s/p subsequent removal of stent and discharged on Bactrim. He presented with testicular pain x 1 week that progressively worsened, chills, suprapubic discomfort, and urinary incontinence. He had a Hopper catheter placed in the ED on admission. #UTI | Epididymo-orchitis - CT A/P: cystitis, left sided nephrolithiasis - Scrotal US: right testicle & epididymis are markedly hyperemic, typical for epididymoorchitis. no testicular mass seen & no sonographic evidence of testicular torison. complex R sided fluid collection vs hydrocele - Leukocytosis now resolved - Urine culture grew ESBL E. coli, sensitive to Augmentin. Blood cultures negative x 5 days - Urology consulted - follow-up outpatient. Keep Hopper catheter in until outpatient urology appointment and voiding trial can be performed at that time - Treated with IV ertapenem while hospitalized, transitioned to Augmentin on discharge for total of 10-day antibiotic course - Can apply ice as needed to scrotum, recommending scrotal support when ambulating & scrotal elevation when sitting/lying flat - Continue Finasteride #Generalized weakness | Subacute femur fracture - Fractured femur in October 2024, elected for conservative treatment. Has completed 8 weeks of NWB status - PT/OT consulted - recommend inpatient rehab #Type 2 DM - A1c 02/20/2025: 6.4% - On metformin, Ozempic outpatient - hold while inpatient, resume outpatient - SSI while admitted #Ulcerative Colitis - no recent flare ups. Continue Mesalamine DVT prophylaxis: Heparin Dispo: Discharged to [facility] rehab 03/20 Admission HPI Per Admitting Provider 74 male diabetes UTIs kidney stones Hydronephrosis BPH Arthritis femur fracture treated conservatively Ulcerative colitis who was recently admitted for ESBL E. coli bacteremia UTI and nephrolithiasis Status post lithotripsy And stent status post subsequent removal of stent and discharged reportedly on bactrim who presents with testicular pain over the past week that is progressively worsened, chills suprapubic discomfort and urinary incontinence. Workup in ED notable for leukocytosis. Lactate wnl. CT abdomen pelvis with cystitis and nonobstructing left-sided stone. Scrotal ultrasound notable for epididymal orchitis and complex right-sided fluid collection versus hydrocele without mass or torsion. No hematuria Or other symptoms, nausea vomiting fevers lightheadedness shortness of breath or any other symptoms. ED physician discussed the case with urologist who will see in consultation . Urologist reportedly does not feel the fluid collection needs to be drained. Discharge Exam General: No acute distress, nondiaphoretic, well-developed, well-nourished. Skin: Warm, dry. No rashes or peripheral edema noted. Cardiac: Well-perfused. Rate in 80s. Pulm: Normal respiratory effort. 92% on room air. Abdominal: Soft, nontender, mildly distended. Bowel sounds present. : Scrotal swelling is improving. Scrotum remains erythematous. Hopper catheter draining clear yellow urine. Neuro: A&O x3. No focal neurological deficits. Discharge Plan Discharge Items Patient Disposition: Transfer Group Home Fac Reason For Visit: UTI Discharge Diagnosis: UTI, epididymoorchitis, generalized weakness, subacute femur fracture Condition on Discharge: Good Activity: Resume your previous activity Non-emergency contact: Primary Care Provider Call non-emergency contact if: you have any medication questions and your symptoms worsen Follow-up/Referrals: Luis Cruz MD [Physician] - (Follow-up within 2 weeks) Kim Olivera MD [Primary Care Provider] - (Follow-up 1-2 weeks) Neeraj Yip at [place] [Non-Staff] - Diet: Regular Addtl Attending Provider Instructions: Yogesh, You were admitted to the hospital due to testicular pain and were found to have epididymoorchitis and a UTI. Epididymoorchitis is swelling and infection of the tube (epididymis) and the testicle (orchitis) in your scrotum. You had a Hopper catheter placed. You were treated with IV antibiotics and will continue on oral antibiotics on discharge. You are being discharged to [facility] for rehab. Upon discharge from the hospital: * Take Augmentin (oral antibiotic) twice daily starting tomorrow 03/21 and continuing through 03/25. This is to complete 10 days of antibiotics for your infection. It is important to complete these antibiotics even if you begin to feel better. Not completing the antibiotics can result in the infection returning and/or can make future infections harder to treat. Side effects of oral antibiotics include GI upset. I recommend taking your antibiotic with food to prevent nausea, vomiting, diarrhea. * Take Tylenol or ibuprofen as needed for pain. * Keep your scrotum supported. You can use snug underwear or a folded towel to help reduce discomfort and swelling. * Apply an ice pack to your scrotum for 10-15 minutes at a time several times a day to help with pain and swelling. * Avoid heavy lifting, strenuous activity, and sexual activity until your symptoms are completely gone and you have finished your antibiotics. * Follow-up with urology outpatient as directed. Keep your Hopper catheter in place until your outpatient urology appointment. At that time they will perform a voiding trial and determine if the Hopper catheter needs to be continued or not. * Follow-up with your PCP in 1-2 weeks. Please return to the hospital if you experience any of the following: Severe increasing pain/swelling in your scrotum, fever of 101 F or higher, persistent nausea with vomiting, redness/warmth/pus coming from your scrotum, chest pain, difficulty breathing, passing out, confusion, or any other symptoms concerning for you. It was a pleasure taking care of you while you were in the hospital, Ericka Ribera PA-C Pending Studies at Discharge: No Stand-Alone Forms: My [facility] Skilled Items Patient informed of condition?: Yes DNR: No Discharge Level of Care: Acute rehab Communicable Disease: No Discharge Prognosis: Stable Lines: None Urinary Catheter: Yes Medications and DC Order Prescriptions: New polyethylene glycol 3350 [Miralax] 17 gram Powder In Packet 17 g PO DAILY PRN (Reason: constipation) Qty: 14 0RF amoxicillin-pot clavulanate 875-125 mg tablet 1 tab PO BID Qty: 10 0RF Rx Instructions: start on 03/21 Continued pravastatin 20 mg tablet 20 mg PO HS mecobalamin (vitamin B12) 1,000 mcg tablet,chewable 1,000 mcg PO QPM (DME) lancets Misc See Rx Instructions .Route Rx Instructions: As directed (DME) blood sugar diagnostic Strip See Rx Instructions .Route Rx Instructions: As directed bisacodyl 10 mg suppository 10 mg SC DAILY PRN (Reason: Constipation) finasteride 5 mg tablet 5 mg PO QPM Qty: 90 3RF metformin 500 mg tablet extended release 24 hr 500 mg PO BID Ozempic 0.25 mg or 0.5 mg (2 mg/3 mL) pen injector 0.5 mg SUBCUT WK Rx Instructions: Monday mesalamine 1.2 gram tablet,delayed release (DR/EC) 2.4 g PO BID aspirin [Aspirin Childrens] 81 mg Tablet,Chewable 81 mg PO Q OTHER DAY Prebiotic Fiber 2 gram Tablet,Chewable 4 g PO QAM acetaminophen [Tylenol Extra Strength] 500 mg Tablet 500 mg PO TID PRN (Reason: Pain) doxylamine succinate 25 mg Tablet 25 mg PO HS cholecalciferol (vitamin D3) [Vitamin D3] 25 mcg (1,000 unit) Tablet 25 mcg PO HS vitamin E succinate 268 mg (400 unit) Tablet 268 mg PO QAM Probiotic 10 billion cell Capsule 10,000 mmu cells PO QAM ibuprofen 200 mg Tablet 200 mg PO Q6H PRN (Reason: Pain) Discharge Orders: Discharge Order (Routine); Ordered 03/20/25 Ordered By: Ericka Prado/Other Patient Handouts: Treating Epididymitis and Orchitis, What are Epididymitis and Orchitis? Admission Data Admit Date/Time: 03/15/25 13:38 Attending Provider: Perry Polk Admit Provider: Adrien Fritz Primary Care Provider: Kim Olivera Other Providers: Adrien Fritz; Neeraj Yip [facility] Other Interventions: Discharge Summary Assessment (RN) Last Done: 03/20/25 09:29 Hospital Stay Data Consultations 03/15/25 12:59 ED Decision to Admit Stat 03/15/25 17:29 Consult Urology Routine Diagnostic Imagining Performed Abdomen/Pelvis CT 03/15/25 08:20 CT SCAN OF THE ABDOMEN AND PELVIS WITH IV CONTRAST CLINICAL HISTORY: Lower abdominal pain. Scrotal pain and swelling. COMPARISON STUDY: Abdominal CT dated 01/28/2025 TECHNIQUE: Following the IV administration of 94 cc of Optiray 320, CT scan of the abdomen and pelvis is performed from the lung bases to the proximal femora. Images are reviewed in the axial, sagittal, and coronal planes. IV contrast was administered without complication. A dose lowering technique was utilized adhering to the principles of ALARA. CT DOSE: 1516.49 mGy.cm FINDINGS: Lung bases: The heart is mildly enlarged and without pericardial effusion. There is coronary atherosclerosis. The lung bases are clear noting bibasilar scarring/atelectasis. Liver: The contrast-enhanced liver is enlarged, measuring 24 cm in length. Attenuation is diminished indicating steatosis. There is no intrahepatic biliary ductal dilatation. The hepatic veins and portal veins are patent. Gallbladder: There are calcified gallstones with no CT evidence of acute cholecystitis. Spleen: Normal in size and attenuation. Pancreas: Unremarkable. Adrenal glands: Unremarkable. Kidneys: The contrast enhanced kidneys are normal in size and without hydronephrosis. The kidneys enhance symmetrically. A 3 mm nonobstructing calculus is seen in the left lower pole. No right renal calculi are identified on this contrast-enhanced examination and no ureteral stone is seen. There is a 4.8 cm left renal cyst. Additional scattered subcentimeter cortical hypodensities also likely represent cysts but are too small for definitive characterization. Abdominal vasculature: The abdominal aorta is normal in course and caliber noting moderate atherosclerotic calcification. Bowel: There is mild clonic diverticulosis without CT evidence of acute divert iculitis. No bowel obstruction is seen. [id number] fecal retention is noted throughout the colon. The appendix is not identified and reported surgically absent. Peritoneum: There is no intraperitoneal free air or abdominal ascites. There is a fat-containing umbilical hernia. Lymphadenopathy: None. Pelvic viscera: Evaluation of the pelvis is degraded by streak artifact from a right hip arthroplasty. The bladder is largely decompressed around a Hopper catheter. The bladder wall is thickened and hyperemic with surrounding inflammation. The prostate gland is mildly enlarged and heterogeneous. Skeletal structures: The skeletal structures are osteopenic. There is moderate to advanced cervical spondylosis. No lytic or blastic lesions are seen. A right hip arthroplasty is in place. There is a subacute/healing fracture of the lower sacrum, best seen on axial image #308. IMPRESSION: 1. Findings suggest cystitis. Correlate with clinical findings and urinalysis. 2. Cholelithiasis. 3. Left-sided nephrolithiasis. 4. The liver is enlarged and mildly steatotic. 5. Mild cardiomegaly. 6. Additional findings as above. ACT 112: Negative or not required by law. Electronically signed by: Rodríguez Sweeney M.D. 03/15/2025 9:54 AM Scrotum Ultrasound 03/15/25 08:20 ULTRASOUND TESTES AND SCROTUM CLINICAL HISTORY: Scrotal pain and swelling COMPARISON STUDY: Scrotal ultrasound dated 07/20/2021 TECHNIQUE: Real-time, grayscale, and color Doppler sonography of the testes and scrotum is performed. Images are reviewed in the transverse and longitudinal planes. FINDINGS: The testes are normal in size and homogeneous in echotexture. The right testis measures 4.5 x 3.0 x 3.1 cm and the left testis measures 3.6 x 2.2 x 3.1 cm. No intratesticular mass is seen. The right testis is markedly hyperemic on color imaging. Normal Doppler arterial and venous waveforms are identified in both testes. The right epididymal head appears enlarged and heterogeneous, and is markedly hyperemic. A 2.8 cm right epididymal head cyst is similar to previous. The left epididymal head is normal as imaged. There is a moderate and mildly complex right-sided scrotal fluid collection versus hydrocele with an estimated volume of 26 cc. There is trace left-sided hydrocele. No varicocele is identified. IMPRESSION: 1. The right testicle and epididymis are markedly hyperemic, typical for epididymoorchitis. 2. No testicular mass is seen and there is no sonographic evidence of testicular torsion of the time of examination. 3. There is a complex right-sided fluid collection versus hydrocele. The sterility of this fluid cannot be assessed by imaging. 4. The left testis is normal as imaged. ACT 112: Negative or not required by law. Electronically signed by: Rodríguez Sweeney M.D. 03/15/2025 9:44 AM Pending Results Patient Have Any Pending Studies at Discharge: No Discharge Instructions Given to Patient (Per Discharging Provider) Yogesh, You were admitted to the hospital due to testicular pain and were found to have epididymoorchitis and a UTI. Epididymoorchitis is swelling and infection of the tube (epididymis) and the testicle (orchitis) in your scrotum. You had a Hopper catheter placed. You were treated with IV antibiotics and will continue on oral antibiotics on discharge. You are being discharged to [facility] for rehab. Upon discharge from the hospital: * Take Augmentin (oral antibiotic) twice daily starting tomorrow 03/21 and continuing through 03/25. This is to complete 10 days of antibiotics for your infection. It is important to complete these antibiotics even if you begin to feel better. Not completing the antibiotics can result in the infection returning and/or can make future infections harder to treat. Side effects of oral antibiotics include GI upset. I recommend taking your antibiotic with food to prevent nausea, vomiting, diarrhea. * Take Tylenol or ibuprofen as needed for pain. * Keep your scrotum supported. You can use snug underwear or a folded towel to help reduce discomfort and swelling. * Apply an ice pack to your scrotum for 10-15 minutes at a time several times a day to help with pain and swelling. * Avoid heavy lifting, strenuous activity, and sexual activity until your symptoms are completely gone and you have finished your antibiotics. * Follow-up with urology outpatient as directed. Keep your Hopper catheter in place until your outpatient urology appointment. At that time they will perform a voiding trial and determine if the Hopper catheter needs to be continued or not. * Follow-up with your PCP in 1-2 weeks. Please return to the hospital if you experience any of the following: Severe increasing pain/swelling in your scrotum, fever of 101 F or higher, persistent nausea with vomiting, redness/warmth/pus coming from your scrotum, chest pain, difficulty breathing, passing out, confusion, or any other symptoms concerning for you. It was a pleasure taking care of you while you were in the hospital, Ericka Ribera PA-C Total Time Total Time Spent Total Time Spent (In Minutes): Greater than 30 minutes spent completing this discharge process including direct patient care, medication reconciliation, documentation, review of labs and images, and coordination of care. Coding Level of Care Code 78192 INP/OBS DISCH >30 MIN Diagnoses Epididymo-orchitis, acute N45.3 UTI (urinary tract infection) N39.0 Urinary tract infection type: acute cystitis Acute pain in scrotum N50.82 Weakness R53.1"
--- NOTE | 2025-03-21 08:38 | Coding Query ---
To promote full compliance with coding requirements relating to patient care, provider participation is requested in all cases of program director/music director uncertainty. Please assist us with the question(s) below: Coding Question(s): The diagnosis below was documented in the urology consult from 03/16/25 then subsequently fell off all further documentation. Please indicate if it is still a possible diagnosis or ruled out. Physician's Response(s): SEPSIS ( ) Diagnosed and POA ( ) Diagnosed and not POA ( xxx ) Ruled out ( ) Other (please specify) MTDD
== END 2025-03-20 10:08 | DRG 728 ==
LOC: ED 07:54 → SUATTDRO 13:38 → 3E 13:38 → INTOOBSV 13:38 → 3E 16:44